=== PATIENT | male | born 1940 | race Caucasian/White ===

== ENCOUNTER 2018-11-25 08:09 | Outpatient (RCR) | payer MEDICARE, OTHER, SELFPAY | END 2018-12-07 23:59 | LOC: NS 08:09 | PROVIDERS: Family Provider Family Medicine; PCP Family Medicine; Visit Provider Nurse Practitioner Family | DX: E11.40 Type 2 diabetes mellitus with diabetic neuropathy, unspecified (principal); N18.3 Chronic kidney disease, stage 3 (moderate); Z71.3 Dietary counseling and surveillance | CPT/HCPCS: 97802 ==

== ENCOUNTER 2018-12-31 08:00 | Outpatient (RCR) | payer MEDICARE, OTHER, SELFPAY ==
[2015-03-18 01:19] VITALS: BMI 37.0
== END 2019-01-06 23:59 ==
LOC: DC 08:00
PROVIDERS: Family Provider Family Medicine; PCP Family Medicine; Visit Provider Nurse Practitioner Family
DX: E11.40 Type 2 diabetes mellitus with diabetic neuropathy, unspecified (principal); E66.9 Obesity, unspecified; Z68.39 Body mass index [BMI] 39.0-39.9, adult; Z71.3 Dietary counseling and surveillance; N18.3 Chronic kidney disease, stage 3 (moderate)
CPT/HCPCS: 97803; G0108

== ENCOUNTER 2019-02-04 14:00 | Outpatient (RCR) | payer MEDICARE, OTHER, SELFPAY ==
[2015-03-18 01:19] VITALS: BMI 37.0
== END 2019-02-06 23:59 ==
LOC: DC 14:00
PROVIDERS: Family Provider Family Medicine; PCP Family Medicine; Visit Provider Nurse Practitioner Family
DX: E11.40 Type 2 diabetes mellitus with diabetic neuropathy, unspecified (principal); E66.9 Obesity, unspecified; Z68.39 Body mass index [BMI] 39.0-39.9, adult; Z71.3 Dietary counseling and surveillance; N18.3 Chronic kidney disease, stage 3 (moderate)
CPT/HCPCS: 97803; G0108

== ENCOUNTER 2019-02-24 09:12 | Outpatient (RCR) | payer MEDICARE, OTHER, SELFPAY ==
[2015-03-18 01:19] VITALS: BMI 37.0
== END 2019-03-08 23:59 ==
LOC: DC 09:12
PROVIDERS: Visit Provider Nurse Practitioner Family
DX: E11.40 Type 2 diabetes mellitus with diabetic neuropathy, unspecified (principal); E66.9 Obesity, unspecified; Z68.39 Body mass index [BMI] 39.0-39.9, adult; Z71.3 Dietary counseling and surveillance; N18.3 Chronic kidney disease, stage 3 (moderate)
CPT/HCPCS: 97803

== ENCOUNTER 2019-03-31 11:00 | Outpatient (RCR) | payer MEDICARE, OTHER, SELFPAY ==
[2015-03-18 01:19] VITALS: BMI 37.0
== END 2019-04-08 23:59 ==
LOC: DC 11:00
PROVIDERS: Visit Provider Nurse Practitioner Family
DX: Z71.3 Dietary counseling and surveillance (principal); E11.40 Type 2 diabetes mellitus with diabetic neuropathy, unspecified; N18.3 Chronic kidney disease, stage 3 (moderate); E66.9 Obesity, unspecified; Z68.39 Body mass index [BMI] 39.0-39.9, adult
CPT/HCPCS: 97803; G0109

== ENCOUNTER 2019-05-14 09:19 | Outpatient (RCR) | payer MEDICARE, OTHER, SELFPAY ==
[2015-03-18 01:19] VITALS: BMI 37.0
== END 2019-06-08 23:59 ==
LOC: DC 09:19
PROVIDERS: Visit Provider Nurse Practitioner Family
DX: E11.40 Type 2 diabetes mellitus with diabetic neuropathy, unspecified (principal); E66.9 Obesity, unspecified; Z68.39 Body mass index [BMI] 39.0-39.9, adult; Z71.3 Dietary counseling and surveillance
CPT/HCPCS: G0109

== ENCOUNTER 2019-06-11 15:56 | Outpatient (RCR) | payer MEDICARE, OTHER, SELFPAY ==
[2015-03-18 01:19] VITALS: BMI 37.0
== END 2019-07-09 23:59 ==
LOC: DC 15:56
PROVIDERS: Visit Provider Nurse Practitioner Family
DX: E11.40 Type 2 diabetes mellitus with diabetic neuropathy, unspecified (principal); E66.9 Obesity, unspecified; Z68.39 Body mass index [BMI] 39.0-39.9, adult; Z71.3 Dietary counseling and surveillance
CPT/HCPCS: G0109

== ENCOUNTER 2019-08-13 13:00 | Outpatient (RCR) | payer MEDICARE, OTHER, SELFPAY ==
[2015-03-18 01:19] VITALS: BMI 37.0
== END 2019-08-13 23:59 | disposition home or self-care (01) ==
LOC: DC 13:00
PROVIDERS: Visit Provider Nurse Practitioner Family
DX: Z71.3 Dietary counseling and surveillance (principal); E11.40 Type 2 diabetes mellitus with diabetic neuropathy, unspecified; E66.9 Obesity, unspecified; Z68.39 Body mass index [BMI] 39.0-39.9, adult
CPT/HCPCS: G0109

== ENCOUNTER 2019-08-18 18:21 | Emergency (ER) | payer MEDICARE, OTHER, SELFPAY ==
[2019-08-18 18:22] VITALS: BP 157/70; PULSE 71; RESP 14; TEMP 36.9; O2SAT 97; BMI 34.8
--- NOTE | 2019-08-18 18:47 | RAD_ITS ---
STUDY: X-RAY - RIGHT SHOULDER REASON FOR EXAM: Male, 79 years old. Right shoulder pain after fall. TECHNIQUE: 2 view(s) of the shoulder. COMPARISON: None. 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 There is degenerative arthrosis of the acromioclavicular joint without inferior osseous spur formation. There is lateral downward sloping acromion. There is no acute fracture, dislocation or destructive osseous pathology. There is demineralization of the humerus and visualized osseous structures. The soft tissue structures are unremarkable. Normal visualized pulmonary apex. RAD/Shoulder min 2 Views IMPRESSION: Degenerative changes of the right shoulder without acute fracture or dislocation. Electronically Signed: Ap Mahajan DO at 19:02 EST Tel [phone], Service support ,
--- NOTE | 2019-08-18 18:50 | ED.VIS.GEN ---
History of Present Illness Chief Complaint: Fall Informant: Patient Onset: Today Context: Sudden Onset Timing: Continuous Current Severity: Moderate Maximum Severity: Moderate Narrative: The patient presents to the emergency department with right shoulder injury after a fall. The patient states that his just had a hip replaced. He had we done the rear deck so she can get up and down easily. He states that he forgot about it, stepped, and fell off the edge. He states he was only about 4 inches out. He landed on his right elbow and suffered a contusion to his right shoulder. He did not strike his head. He denies loss of consciousness. He is otherwise been in his normal state of health. Prior similar symptoms: No Recent Illness/Hospitalization: No Past Medical History - Allergies and Home Meds Allergies/Adverse Reactions: Allergies aspirin Allergy (Verified 08/18/19 18:25) Rash atorvastatin calcium [From Lipitor] Allergy (Verified 08/18/19 18:25) Other finasteride Allergy (Verified 08/18/19 18:25) Rash ibuprofen [From Motrin] Allergy (Verified 08/18/19 18:25) Swelling simvastatin [From Zocor] Allergy (Verified 08/18/19 18:25) Other sulfamethoxazole [From Bactrim] Allergy (Verified 08/18/19 18:25) Unknown trimethoprim [From Bactrim] Allergy (Verified 08/18/19 18:25) Unknown Primary Care Physician: Isai Pedersen MD [Primary Care Provider] - Prior records reviewed: Yes Surgical History: noncontributory Smoking Status: Never smoker Review of Systems General: Denies: Chills, Fever, Sweats Eyes: Denies: Visual changes - bilaterally, Diplopia ENT: Denies: Rhinorrhea, Sore throat Cardiovascular: Denies: Chest pain, Palpitations Respiratory: Denies: Dyspnea, Cough, Dyspnea on exertion Gastrointestinal: Denies: Abdominal pain, Nausea, Vomiting, Diarrhea, Melena, Hematochezia Genitourinary: Denies: Dysuria, Hematuria, Frequency Musculoskeletal: Denies: Back pain, Extremity Pain Skin: Denies: Rash, Wounds Neurological: Denies: Headache, Weakness, Numbness Physical Exam Vital Signs/Narrative: Vital Signs Temp Pulse Resp BP Pulse Ox 08/18/19 18:22 98.5 F 71 14 157/70 H 97 Inital Vital Signs reviewed: Yes General: Well nourished, Well developed, No Acute Distress Head: Normocephalic, Atraumatic Eyes: Perrl, EOMI ENT: Moist mucous membranes, No rhinorrhea Neck: Supple, Nontender Cardiovascular: Regular rate, Regular rhythm, No murmurs Respiratory: No distress, CTA bilaterally, Chest nontender Abdomen: Soft, Nontender, Nondistended, Normal bowel sounds Back: Nontender, Normal Inspection Extremities: No edema, Tenderness - Tenderness over the AC joint. Axillary nerve is preserved. 2+ radial ulnar pulses. Sensation preserved to light touch. Skin is intact without tenting. Skin: Normal color, No rash Neurological: Alert, Oriented x3, Cranial nerves II-XII grossly intact, Normal Strength, Normal Sensation Psychological: Normal affect, Normal Mood Diagnostic/Tx/Re-eval Clinical Impression(s) from Imaging Studies Shoulder X-Ray 08/18/19 18:47 IMPRESSION: Degenerative changes of the right shoulder without acute fracture or dislocation. Electronically Signed: Ap Mahajan DO at 19:02 EST Tel [phone], Service support , - Medical Decision Making The patient did have a superficial abrasion of his fingertips on his right hand and of his right baer. He had no bony tenderness. I did obtain plain films of the shoulder which are unremarkable for acute fracture. Patient is resting comfortably. My suspicion is that this is likely contusion. He does have significant arthritis. He will be placed in a sling for comfort but was counseled on range of motion exercises. He will be given a short course of analgesics and outpatient orthopedic follow-up. Impression 1. Right shoulder contusion status post fall ED Disposition - Plan for ED Patient: Disposition: Home or Assisted Living Instructions: Shoulder Contusion Prescriptions: Hydrocodone Bitart/Apap 5-325 [[place] 5MG-325MG] 1 tab PO Q6H PRN PRN 3 Days #10 tab PRN Reason: Pain Prescription Printed Referrals: Isai Pedersen MD [Primary Care Provider] -
[2019-08-18] MEDS: HYDROcodone Bitartrate/Apap 5/325 Tablet PO (18:55)
== END 2019-08-18 19:30 | disposition home or self-care (01) ==
PROVIDERS: Emergency Provider Emergency Medicine; Family Provider Family Medicine; PCP Family Medicine
DX: S40.011A Contusion of right shoulder, initial encounter (principal); S60.419A Abrasion of unspecified finger, initial encounter; S80.811A Abrasion, right lower leg, initial encounter; M19.011 Primary osteoarthritis, right shoulder; W17.89XA Other fall from one level to another, initial encounter; Y93.9 Activity, unspecified; Y92.9 Unspecified place or not applicable
CPT/HCPCS: 73030; 99283

== ENCOUNTER 2020-08-25 04:15 | Inpatient (IN) | payer MEDICARE, OTHER, SELFPAY ==
[2020-08-25] VITALS (8 sets, daily range): BP systolic 120–142; BP diastolic 57–76; PULSE 66–80; RESP 16–19; TEMP 36.1–37.2; O2SAT 94–95; BMI 34.4; BMI 33.9
--- NOTE | 2020-08-25 04:30 | ED.VIS.GEN ---
History of Present Illness Chief Complaint: GI Bleed Narrative: Patient is a 80-year-old male who presents with rectal bleeding. He initially noted this last night. He felt like he needed to have a bowel movement and had bright red blood per rectum. This has continued. He has noted some small clots. He is not on any anticoagulation. He complains of some minimal burning at the rectum but no abdominal pain. He was recently diagnosed with Covid 1 week ago. He states the symptoms have improved. He has not had a fever the last few days. No prior history of GI bleed. Past Medical History - Allergies and Home Meds Allergies/Adverse Reactions: Allergies aspirin Allergy (Verified 08/25/20 04:21) Rash atorvastatin calcium [From Lipitor] Allergy (Verified 08/25/20 04:21) Other finasteride Allergy (Verified 08/25/20 04:21) Rash ibuprofen [From Motrin] Allergy (Verified 08/25/20 04:21) Swelling simvastatin [From Zocor] Allergy (Verified 08/25/20 04:21) Other sulfamethoxazole [From Bactrim] Allergy (Verified 08/25/20 04:21) Unknown trimethoprim [From Bactrim] Allergy (Verified 08/25/20 04:21) Unknown Primary Care Physician: Isai Pedersen MD [Primary Care Provider] - Past Medical History: - - Diabetes, hypertension, hyperlipidemia Surgical History: noncontributory Smoking Status: Never smoker Review of Systems All systems negative except as indicated General: Denies: Fever Eyes: Denies: Visual changes - bilaterally Cardiovascular: Denies: Chest pain Respiratory: Denies: Dyspnea Gastrointestinal: Reports: Hematochezia. Denies: Abdominal pain, Nausea, Vomiting, Diarrhea, Melena Skin: Denies: Rash Neurological: Denies: Headache Physical Exam Vital Signs/Narrative: Vital Signs Temp Pulse Resp BP Pulse Ox 08/25/20 04:16 97.9 F 80 18 140/76 H 95 Inital Vital Signs reviewed: Yes General: Well nourished Head: Normocephalic Eyes: EOMI ENT: Moist mucous membranes Neck: Supple Cardiovascular: Regular rate, Regular rhythm Respiratory: No distress, CTA bilaterally Abdomen: Soft, Nontender, Nondistended Rectal: - - Gross maroon blood on digital rectal exam with small clots Skin: Normal color Neurological: Alert Psychological: Normal affect Diagnostic/Tx/Re-eval Laboratory Results 08/25/20 08/25/20 08/25/20 04:35 04:35 04:35 WBC 8.0 RBC 4.35 L Hgb 13.4 Hct 40.0 MCV 92.0 MCH 30.8 MCHC 33.5 RDW Std Deviation 49.1 H RDW Coeff of Joe 14.4 Plt Count 253 MPV 8.7 Immature Gran % (Auto) 0.200 Neut % (Auto) 43.7 L Lymph % (Auto) 44.3 H [place] % (Auto) 9.8 Eos % (Auto) 1.5 Baso % (Auto) 0.5 Absolute Neuts (auto) 3.5 Absolute Lymphs (auto) 3.56 Nucleated RBC % 0 PT 12.6 INR 1.0 Sodium 134 L Potassium 4.8 Chloride 105 Carbon Dioxide 20.0 L Anion Gap 9 BUN 29 H Creatinine 1.39 H Estim Creat Clear Calc 44.49 Est GFR (MDRD) Af Amer 63 Est GFR (MDRD) Non-Af 52 L BUN/Creatinine Ratio 20.9 H Glucose 101 Calcium 8.5 - Medical Decision Making Laboratory studies essentially unremarkable as above. Patient is hemodynamically stable. However given age and active bleeding I did feel hospital observation appropriate. Patient discussed with the hospitalist who agrees to admit. ED Disposition - Plan for ED Patient: Disposition: Acute Care Hospital [facility] Diagnosis: GI bleed Referrals: Isai Pedersen MD [Primary Care Provider] -
[2020-08-25 04:49] LABS: Absolute Lymphocyte Count 3.56 X10^3/uL (0.83-4.51); Absolute Neutrophil Count 3.5 X10^3/uL (2.0-7.7); Basophil# 0.04 X10^3/uL; Basophil% 0.5 % (0-1); Eosinophil# 0.12 X10^3/uL; Eosinophils% 1.5 % (0-5); Hemoglobin 13.4 g/dL (13.0-16.5); Lymphocyte # 3.56 X10^3/ul (4.0); Lymphocyte % 44.3 % (19-41); Mean Corp Hgb Conc 33.5 g/dL (32-36); Mean Corpuscular Hgb 30.8 pg (27.0-32.0); Mean Platelet Vol. 8.7 fl (6.2-12.0); Monocyte# 0.79 X10^3/uL; Monocyte% 9.8 % (0-10); NRBC Flagged by Analyzer 0 % (0-5); Neutrophil % 43.7 % (47-70); Platelet Count 253 K/mm3 (150-450); RBC Distribution Width CV 14.4 % (11.6-14.6); RBC Distribution Width SD 49.1 fl (35.1-43.9); Red Blood Count 4.35 M/mm3 (4.6-6.2)
[2020-08-25 05:00] LABS: Prothrombin Time (Protime)PT. 12.6 SECONDS (11.7-14.9)
[2020-08-25 05:04] LABS: Anion Gap 9 (5-15); BUN 29 mg/dL (7-18); BUN/Creat Ratio 20.9 RATIO (10-20); Calcium,Total 8.5 mg/dL (8.5-10.1); Chloride 105 mmol/L (98-107); Creatinine, Serum 1.39 mg/dL (0.70-1.30); EST Glomerular Filtration Rate 52 mL/min (>60); Est Glom Filt Rate - Afr Amer 63 mL/min (>60); Estimated Creatinine Clearance 44.49 ml/min; Glucose 101 mg/dL (74-106); Potassium 4.8 mmol/L (3.5-5.1); Sodium Level 134 mmol/L (136-145)
--- NOTE | 2020-08-25 05:27 | HP.PCM_ITS ---
Problem List (1) BRBPR (bright red blood per rectum) Status: Acute (2) GI bleed Status: Acute History of Present Illness Date of Admission: 08/25/20 Chief Complaint: Bright red blood per rectum. The patient is a 80 year old M with a significant history of hypertension; BPH; gout; hyperlipidemia and hypertension who presented emergency department with bright red blood per rectum that started few hours before presentation. Of note patient had an urge to defecate. However he realized that he was only passing out bright red blood per rectum. Thereafter he continued to have multiple episodes of bright red blood per rectum and clots. He denies any abdominal pain; nausea or vomiting. He denied any hematemesis. Had a colonoscopy many years ago. Reportedly the colonoscopy was nondiagnostic so a barium study was done. He does not remember the results of the colonoscopy. He reported he was supposed to have had a colonoscopy in August 2020 but it has been moved to September 2020. Patient is weak and fatigued. He has lightheadedness. Patient denies any use of aspirin or blood thinners. Reportedly he takes only Tylenol for pain. Of note patient tested positive for coronavirus on 08/18/2020. Reportedly he had Covid-like symptoms symptoms about 2 days before his test was done. He reported that his lightheadedness; weakness and fatigue started when he had a COVID-19 virus. He was never hospitalized for the COVID-19 virus. When he had the covid-19 virus he felt feverish. He denies any shortness of breath with covid-19. He had a loss of taste with the virus. Reportedly he lost his sense of smell many years ago. His sense of taste is coming back. Generally he feels improved from his COVID-19 symptoms. Emergent department doctor reports maroon stools on rectal examination. Past Medical History Medical History: Medical History (Last Updated 08/25/20 @ 06:[address] Matt Martinez MD) Hypertension I10 Allergies aspirin Allergy (Verified 08/25/20 04:21) Rash atorvastatin calcium [From Lipitor] Allergy (Verified 08/25/20 04:21) Other finasteride Allergy (Verified 08/25/20 04:21) Rash ibuprofen [From Motrin] Allergy (Verified 08/25/20 04:21) Swelling simvastatin [From Zocor] Allergy (Verified 08/25/20 04:21) Other sulfamethoxazole [From Bactrim] Allergy (Verified 08/25/20 04:21) Unknown trimethoprim [From Bactrim] Allergy (Verified 08/25/20 04:21) Unknown Home Medications: Ambulatory Orders Medication Instructions Recorded Allopurinol [Zyloprim] 200 mg PO DAILYCM 03/18/15 Ezetimibe [Zetia] 10 mg PO DAILY 03/18/15 Lisinopril [Zestril] 10 mg PO DAILY 03/18/15 Multivit-Min/FA/Lycopene/Lut 1 each PO DAILY 03/18/15 [Centrum Silver Tablet] Pyridoxine HCl [Vitamin B-6] 100 mg PO DAILY 03/18/15 Tamsulosin HCl [Flomax] 0.8 mg PO QHS 03/18/15 metFORMIN (XR) [Glucophage Xr] 250 mg PO DAILY 08/18/19 Cholecalciferol (VIT D3) [Vitamin 1,000 unit PO DAILY 08/25/20 D] Surgical History: - - Right shoulder replacement. Right nephrectomy secondary to cysts on kidney. Smoking Status: Never smoker - *Family History Maternal History Items: - - Denies maternal medical history. Her mother of age 100. He attributes maternal to old age Paternal History Items: Cancer - His father had prostate cancer Review of Systems Constitutional: Reports: Weakness, Fatigue. Denies: Chills, Fever, Weight Change HEENT: Denies: Head Aches, Sinus Congestion, Sinus Drainage Cardiovascular: Reports: Light Headedness. Denies: Chest Pain, Palpitations Respiratory: Denies: Cough, Shortness of breath at rest, Sputum production Gastrointestinal: Reports: Hematochezia. Denies: Abdominal Pain, Nausea, Vomiting Genitourinary: Denies: Dysuria Musculoskeletal: Denies: Joint Pain, Joint Tenderness Skin: Denies: Rash, Wounds Neurological: Denies: Numbness, Tingling, Focal weakness Psychiatric: Denies: Anxiety, Depression, Homicidal Ideations, Suicidal Ideations Hematologic/ Lymphatic: Denies: Easy Bruising, Easy Bleeding VTE Information - Inpt Only VTE Present on Admission: No VTE Mechan Device Prophylaxis: SCD's VTE Pharm Prophylaxis ordered?: No Patient Problems: Active and Suspected Problems (Last Updated 08/25/20 @ 06:[address] Matt Martinez MD) GI bleed (Acute) BRBPR (bright red blood per rectum) (Acute) - Physical Exam Vitals/I&O's: Vital Signs Temp Pulse Resp BP Pulse Ox 97.9 F 80 18 140/76 H 95 08/25/20 04:16 08/25/20 04:16 08/25/20 04:16 08/25/20 04:16 08/25/20 04:16 Oxygen Delivery Method Room Air Weight: 109 kg Body Mass Index (BMI) 34.4 General: Alert, Oriented x3, Cooperative HEENT: Atraumatic, PERRLA, EOMI, Normocephalic Neck: Supple, No JVD, Negative Carotid Bruits Lungs: Clear to auscultation, Normal air movement Cardiovascular: Regular rate, Normal S1, Normal S2, No murmurs Abdomen: Bowel Sounds Present, Soft, Non Tender Extremities: No edema, Capillary Refill Less than 3 Seconds Skin: No rashes, No breakdown Musculoskeletal: No Tenderness to Palpation of Joints or Extremities Neurological: Cranial nerves II-XII grossly intact Psych/Mental Status: Normal Affect, Appropriate Laboratory Results 08/25/20 04:35: WBC 8.0, RBC 4.35 L, Hgb 13.4, Hct 40.0, MCV 92.0, MCH 30.8, MCHC 33.5, RDW Std Deviation 49.1 H, RDW Coeff of Joe 14.4, Plt Count 253, MPV 8.7, Immature Gran % (Auto) 0.200, Neut % (Auto) 43.7 L, Lymph % (Auto) 44.3 H, [place] % (Auto) 9.8, Eos % (Auto) 1.5, Baso % (Auto) 0.5, Absolute Neuts (auto) 3.5, Absolute Lymphs (auto) 3.56, Nucleated RBC % 0 08/25/20 04:35: PT 12.6, INR 1.0 08/25/20 04:35: Sodium 134 L, Potassium 4.8, Chloride 105, Carbon Dioxide 20.0 L , Anion Gap 9, BUN 29 H, Creatinine 1.39 H, Estim Creat Clear Calc 44.49, Est GFR (MDRD) Af Amer 63, Est GFR (MDRD) Non-Af 52 L, BUN/Creatinine Ratio 20.9 H, Glucose 101, Calcium 8.5 08/25/20 04:35: Blood Type Pending, Antibody Screen Pending Assessment/Plan All Active Problems (Last Updated 08/25/20 @ 06:[address] Matt Martinez MD) GI bleed (Acute) BRBPR (bright red blood per rectum) (Acute) The patient is a 80 year old M with a significant history of hypertension; BPH; gout; hyperlipidemia and hypertension who presented emergency department with bright red blood per rectum that started few hours and with recent infection with COVID-19 virus. Bright red blood per rectum His hemoglobin on presentation was 13.4. His hemoglobin from community records on 05/04/2020 was 13. His BUN on presentation was 29 and his creatinine presentation was 1.39. Review of community records showed that his BUN on 07/12/2020 was 30 and creatinine on the same day was 1.43. And on 05/04/2020 his BUN was 26; his creatinine was 1.74. With his age; and stable BUN and stable blood pressure this is likely acute lower GI bleed from diverticular bleed. Emergent department doctor reports no hemorrhoids on rectal examination. However cannot rule out malignancy. We will trend H&H. Supportive treatment with IV fluids. If H&H is stable consider discharge and follow-up for outpatient colonoscopy as previously planned. However if H&H drops significantly or patient is unsteady consider general surgery consult. We will keep patient n.p.o. for now. COVID-19 virus infection. Follow started symptoms after this time is about 9 days. Will admit patient to Covid unit. Diabetes mellitus Blood glucose is normal on presentation Hold Metformin While n.p.o. Accu-Chek every 6 hours. Hypertension Pressure is stable in regard to his age. Lisinopril on hold secondary to n.p.o. status. Also of note patient is bleeding. Trend blood pressures. Hyperlipidemia Home Zetia on hold secondary to n.p.o. status. BPH Flomax on hold secondary to n.p.o. status. CKD stage III Creatinine on presentation community records as above. CKD likely secondary to right nephrectomy secondary to kidney cyst. Diabetic nephropathy likely contributing to CKD. DVT prophylaxis No chemical thromboprophylaxis secondary GI bleed. SCD ordered. Inpatient E&M: 47339 Init Hosp L3
--- NOTE | 2020-08-25 06:15 | PCS.PANDOC ---
PANDEMIC DOCUMENTATION INITIATED: Date: 08/25/20 Time: 604
[2020-08-25] MEDS: 0.9% Normal Saline 1,000 ML 100 ML IV (06:46)
[2020-08-25] MEDS: 0.9% Saline Lock 10 ML Syringe IV (06:46)
[2020-08-25 10:14] LABS: Hematocrit 39.7 % (40-54); Hemoglobin 13.2 g/dL (13.0-16.5)
--- NOTE | 2020-08-25 11:00 | PN_ITS ---
Patient Problems: Active and Suspected Problems (Last Updated 08/25/20 @ 06:[address] Matt Martinez MD) GI bleed (Acute) BRBPR (bright red blood per rectum) (Acute) Reason for Visit: Lower GI bleed COVID-19 infection Subjective: Patient is a 80-year-old gentleman diagnosed with COVID-19 a week prior to his admission managed at home who presented to the emergency department with bright red per rectum admitted to the Covid unit for subsequent management Objective: GENERAL: cooperative HEENT: Atraumatic; EYES; Anicteric, Normal Conjunctiva NECK; supple, normal thyroid, RESPIRATORY: Diminished to auscultation CARDIOVASCULAR: Regular S1 S2, GI: soft, normoactive bowel sounds, : No Renal angle tenderness; EXTREMITIES: No edema, no clubbing, MUSCULOSKELETAL: no muscle waisting NEURO: Awake; no lateralizing signs. SKIN: No Rash PSYCH; Flat affect Vitals/I&O's: Vital Signs Temp Pulse Resp BP Pulse Ox 97.4 F L 66 16 120/57 L 95 08/25/20 06:29 08/25/20 06:29 08/25/20 06:29 08/25/20 06:29 08/25/20 08:05 Oxygen Delivery Method Room Air Weight: 107.275 kg Body Mass Index (BMI) 33.9 Laboratory Results 08/25/20 04:35: WBC 8.0, RBC 4.35 L, Hgb 13.4, Hct 40.0, MCV 92.0, MCH 30.8, MCHC 33.5, RDW Std Deviation 49.1 H, RDW Coeff of Joe 14.4, Plt Count 253, MPV 8.7, Immature Gran % (Auto) 0.200, Neut % (Auto) 43.7 L, Lymph % (Auto) 44.3 H, [place] % (Auto) 9.8, Eos % (Auto) 1.5, Baso % (Auto) 0.5, Absolute Neuts (auto) 3.5, Absolute Lymphs (auto) 3.56, Nucleated RBC % 0 08/25/20 04:35: PT 12.6, INR 1.0 08/25/20 04:35: Sodium 134 L, Potassium 4.8, Chloride 105, Carbon Dioxide 20.0 L , Anion Gap 9, BUN 29 H, Creatinine 1.39 H, Estim Creat Clear Calc 44.49, Est GFR (MDRD) Af Amer 63, Est GFR (MDRD) Non-Af 52 L, BUN/Creatinine Ratio 20.9 H, Glucose 101, Calcium 8.5 08/25/20 04:35: Blood Type O NEGATIVE, Antibody Screen NEGATIVE 08/25/20 10:05: Hgb 13.2, Hct 39.7 L Current Medications Sodium Chloride () 1,000 mls @ 100 mls/hr IV .Q10H LOIS Stop: 08/25/20 16:14 Last Admin: 08/25/20 06:46 Dose: 100 mls/hr Documented by: Sodium Chloride () 250 mls @ 15 mls/hr IV .[id number] PRN PRN Reason: Saline Flush Ondansetron HCl (Ondansetron 4 Mg/2 Ml Vial) 4 mg IV Q8H PRN PRN PRN Reason: NAUSEA/VOMITING Sodium Chloride (0.9% Saline Lock 10 Ml Syringe) 10 - 40 ml IV UD PRN PRN Reason: SALINE FLUSH Last Admin: 08/25/20 06:46 Dose: 10 ml Documented by: STROKE Vital Signs/Narrative: Vital Signs Pulse Ox 08/25/20 08:05 95 Medical Necessity - Tobacco Use Smoking Status: Never smoker Assessment/Plan All Active Problems (Last Updated 08/25/20 @ 06:[address] Matt Martinez MD) GI bleed (Acute) BRBPR (bright red blood per rectum) (Acute) Patient is a 80-year-old gentleman diagnosed with COVID-19 a week prior to his admission managed at home who presented to the emergency department with bright red per rectum admitted to the Covid unit for subsequent management 1. Acute lower GI bleed ?suspected to be secondary to diverticular bleed admitted to regular nursing floor H&H ordered consult placed to general surgery patient seen in consultation by Dr. Thompson who recommended conservative management at this point 2. Recent COVID-19 infection -Greatly asymptomatic 3. Diabetes mellitus type II -patient's oral hypoglycemics held. -Placed on long acting insulin, Accu-Cheks a.c. and at bedtime and covered with sliding scale insulin 4. Chronic Kidney disease stage III ?Kidney function at baseline 5. Dyslipidemia -Patient is on statin therapy, continued at home dose 6. Hypertension - Blood pressure controlled, home medications continued with dose adjustment as needed 7. Morbid obesity with BMI of 33.9 ?Weight loss advised 8. BPH -Is on Flomax continued 9. DVT prophylaxis SCDs Advance planning; did discuss with the patient and family regarding advanced directives as well as CODE STATUS. Did explain the various scenarios involved ( FULL CODE, DNR CCA, DNR CCA with no intubation, and DNR CC and what each meant) patient elected full code with CPR and intubation if warranted, order was placed. Time spent on discussion 18 minutes. Inpatient E&M: 77254 [facility] Hosp L3 Procedures: 72807 Advncd Care Plan 30 Min
--- NOTE | 2020-08-25 13:53 | CASEMGMT ---
RN CM Assessment Note Introduced role of CM to patient via phone to room. Demographics, PCP verified. Pt is awake, alert and able to participate in assessment. Pt states he lives independently with his who has covid and was in ER, set up with oxygen. patient does not have concerns re: going home. States they are able to have daughters bring groceries, etc. COVID TESTIN08/18/20 @ [facility] Presentation: rectal bleeding Diagnosis: GI Bleed PCP: Dr. Isai Pedersen Specialists: Dr. Thompson Insurance: [facility]erred [facility]acy: [facility] Prescription Benefit: yes LNOK: , Breanne Faust Living Arrangements: Lives independently @ home Tranportation: patient drives and drives DME: states he does not use DME at home. Has walker and cane available. No home oxygen. HHC: none SNF: none Patient DC Goals: Home on discharge. DC Plan: anticipate home on discharge CM available for discharge planning coordination. Contact CM for any concerns/needs that may arise. Cindy AVILES RN ACM
--- NOTE | 2020-08-25 15:35 | NT.THERAPY_ITS ---
Nutrition Therapy Report - History Current diet / nutrition support order:: cardiac - Anthropometric Measurements Height:: 5 ft 10 in Weight:: 107.275 kg Body Mass Index (BMI):: 33.9 - Relevant Labs Relevant Labs:: RBC 4.35 M/mm3 (4.6-6.2) L 08/25/20 04:35 Hct 39.7 % (40-54) L 08/25/20 10:05 RDW Std Deviation 49.1 fl (35.1-43.9) H 08/25/20 04:35 Neut % (Auto) 43.7 % (47-70) L 08/25/20 04:35 Lymph % (Auto) 44.3 % (19-41) H 08/25/20 04:35 Sodium 134 mmol/L (136-145) L 08/25/20 04:35 Carbon Dioxide 20.0 mmol/L (21.0-32.0) L 08/25/20 04:35 BUN 29 mg/dL (7-18) H 08/25/20 04:35 Creatinine 1.39 mg/dL (0.70-1.30) H 08/25/20 04:35 Est GFR (MDRD) Non-Af 52 mL/min (>60) L 08/25/20 04:35 BUN/Creatinine Ratio 20.9 RATIO (10-20) H 08/25/20 04:35 - Assessment Food / Nutrition-Related History:: Currently in isolation d/t COVID-19. Spoke w/ pt via room phone. 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 No special diet followed normally at home. States appetite is improving today, consumed 100% of lunch. Believes UBW 245# and CBW 236.5#-8.5#/3.4% unintentional wt loss x 1 week. 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 Evidence of Malnutrition Exists:: Yes Severe PCM:: Acute Illness - Nutrition Intervention Nutrition Prescription:: 7220-4921 calories, 70-80 g protein - Food / Nutrient Delivery Interventions Summary of nutrition intervention:: Pt states appetite has significantly improved over last 24-48 hours. Tastes are no longer altered. Declines further nutrition interventions/education at this time. Of note, pt attended [facility] in 2019. Nutrition support ordered as / adjusted to:: continue cardiac diet as tolerated Nutrition education provided?: No - MNT Monitoring Further MNT monitoring and evaluation required?: Yes MNT Follow-up in:: 5-7 days
--- NOTE | 2020-08-25 16:30 | PCM.CONS.GEN ---
Problem List (1) BRBPR (bright red blood per rectum) Status: Acute Reason for Consult Date of Consultation: 08/25/20 History of Present Illness: The patient is a 80 year old M with a significant history of hypertension; BPH; gout; hyperlipidemia and hypertension who presented emergency department with bright red blood per rectum that started few hours before presentation. Of note patient had an urge to defecate. However he realized that he was only passing out bright red blood per rectum. Thereafter he continued to have multiple episodes of bright red blood per rectum and clots. He denies any abdominal pain; nausea or vomiting. He denied any hematemesis. Had a colonoscopy many years ago. Reportedly the colonoscopy was nondiagnostic so a barium study was done. He does not remember the results of the colonoscopy. He reported he was supposed to have had a colonoscopy in August 2020 but it has been moved to September 2020. Patient is weak and fatigued. He has lightheadedness. Patient denies any use of aspirin or blood thinners. Reportedly he takes only Tylenol for pain. Of note patient tested positive for coronavirus on 08/18/2020. Reportedly he had Covid-like symptoms symptoms about 2 days before his test was done. He reported that his lightheadedness; weakness and fatigue started when he had a COVID-19 virus. He was never hospitalized for the COVID-19 virus. When he had the covid-19 virus he felt feverish. He denies any shortness of breath with covid-19. He had a loss of taste with the virus. Reportedly he lost his sense of smell many years ago. His sense of taste is coming back. Generally he feels improved from his COVID-19 symptoms. Since being on the floor the patient has had no further bloody bowel movements. I have performed a colonoscopy on him on 02/05/2013. He had some benign polyps. Past Medical History Medical History: Medical History (Last Reviewed 08/25/20 @ 16:[address] Zaheer Thompson MD) Hypertension I10 Allergies aspirin Allergy (Verified 08/25/20 04:21) Rash atorvastatin calcium [From Lipitor] Allergy (Verified 08/25/20 04:21) Other finasteride Allergy (Verified 08/25/20 04:21) Rash ibuprofen [From Motrin] Allergy (Verified 08/25/20 04:21) Swelling simvastatin [From Zocor] Allergy (Verified 08/25/20 04:21) Other sulfamethoxazole [From Bactrim] Allergy (Verified 08/25/20 04:21) Unknown trimethoprim [From Bactrim] Allergy (Verified 08/25/20 04:21) Unknown Home Medications: Ambulatory Orders Medication Instructions Recorded Allopurinol [Zyloprim] 200 mg PO DAILYCM 03/18/15 Ezetimibe [Zetia] 10 mg PO DAILY 03/18/15 Lisinopril [Zestril] 10 mg PO DAILY 03/18/15 Multivit-Min/FA/Lycopene/Lut 1 each PO DAILY 03/18/15 [Centrum Silver Tablet] Pyridoxine HCl [Vitamin B-6] 100 mg PO DAILY 03/18/15 Tamsulosin HCl [Flomax] 0.8 mg PO QHS 03/18/15 metFORMIN (XR) [Glucophage Xr] 250 mg PO DAILY 08/18/19 Cholecalciferol (VIT D3) [Vitamin 1,000 unit PO DAILY 08/25/20 D] Surgical History: - - Right shoulder replacement. Right nephrectomy secondary to cysts on kidney. Smoking Status: Never smoker - *Family History Maternal History Items: - - Denies maternal medical history. Her mother of age 100. He attributes maternal to old age Paternal History Items: Cancer - His father had prostate cancer Review of Systems Constitutional: Denies: Chills, Fever, Weight Change Cardiovascular: Denies: Chest Pain, Chest Pressure, Chest Tightness, Palpitations Respiratory: Denies: Cough, Hemoptysis, Shortness of breath at rest, Shortness of breath upon exertion, Wheezing Gastrointestinal: Denies: Abdominal Pain, Constipation, Diarrhea, Hematemesis, Nausea, Melena, Vomiting Patient Problems: Active and Suspected Problems (Last Reviewed 08/25/20 @ 16:[address] Zaheer Thompson MD) GI bleed (Acute) BRBPR (bright red blood per rectum) (Acute) - Physical Exam Vitals/I&O's: Vital Signs Temp Pulse Resp BP Pulse Ox 98.4 F 71 18 131/64 H 94 08/25/20 13:00 08/25/20 13:00 08/25/20 13:00 08/25/20 13:00 08/25/20 13:00 Oxygen Delivery Method Room Air Weight: 236 lb 8.014 oz Body Mass Index (BMI) 33.9 General: Alert, Oriented x3 Cardiovascular: Regular rate, Regular Rhythm, No murmurs Abdomen: Bowel Sounds Present, Soft, Non Tender, Non-Distended Laboratory Results 08/25/20 04:35: WBC 8.0, RBC 4.35 L, Hgb 13.4, Hct 40.0, MCV 92.0, MCH 30.8, MCHC 33.5, RDW Std Deviation 49.1 H, RDW Coeff of Joe 14.4, Plt Count 253, MPV 8.7, Immature Gran % (Auto) 0.200, Neut % (Auto) 43.7 L, Lymph % (Auto) 44.3 H, [place] % (Auto) 9.8, Eos % (Auto) 1.5, Baso % (Auto) 0.5, Absolute Neuts (auto) 3.5, Absolute Lymphs (auto) 3.56, Nucleated RBC % 0 08/25/20 04:35: PT 12.6, INR 1.0 08/25/20 04:35: Sodium 134 L, Potassium 4.8, Chloride 105, Carbon Dioxide 20.0 L, Anion Gap 9, BUN 29 H, Creatinine 1.39 H, Estim Creat Clear Calc 44.49, Est GFR (MDRD) Af Amer 63, Est GFR (MDRD) Non-Af 52 L, BUN/Creatinine Ratio 20.9 H, Glucose 101, Calcium 8.5 08/25/20 04:35: Blood Type O NEGATIVE, Antibody Screen NEGATIVE 08/25/20 10:05: Hgb 13.2, Hct 39.7 L Current Medications Allopurinol (Allopurinol 100 Mg Tablet) 200 mg PO DAILY LOIS Ezetimibe (Ezetimibe 10 Mg Tablet) 10 mg PO DAILY LOIS Sodium Chloride () 250 mls @ 15 mls/hr IV .[id number] PRN PRN Reason: Saline Flush Lisinopril (Lisinopril 10 Mg Tablet) 10 mg PO DAILY LOIS Ondansetron HCl (Ondansetron 4 Mg/2 Ml Vial) 4 mg IV Q8H PRN PRN PRN Reason: NAUSEA/VOMITING Sodium Chloride (0.9% Saline Lock 10 Ml Syringe) 10 - 40 ml IV UD PRN PRN Reason: SALINE FLUSH Last Admin: 08/25/20 06:46 Dose: 10 ml Documented by: Tamsulosin HCl (Tamsulosin Hcl 0.4 Mg Capsule) 0.8 mg PO DAILY LOIS Assessment/Plan All Active Problems (Last Reviewed 08/25/20 @ 16:[address] Zaheer Thompson MD) GI bleed (Acute) BRBPR (bright red blood per rectum) (Acute) At the present time I have no endoscopy planned for him. His hemoglobin is stable at the present time and he has had no further rectal bleeding. Office Visits / Consults: [id number] IP Consult L3
[2020-08-25 17:04] LABS: Hematocrit 38.9 % (40-54); Hemoglobin 13.1 g/dL (13.0-16.5)
[2020-08-25 21:36] LABS: Bedside Glucose 134 mg/dL (70-110)
[2020-08-25 22:26] LABS: Hematocrit 38.2 % (40-54); Hemoglobin 12.8 g/dL (13.0-16.5)
[2020-08-26 03:00] VITALS: BP 141/68; PULSE 59; PULSE 72; RESP 16; TEMP 36.8; O2SAT 95
[2020-08-26 04:26] LABS: Hematocrit 41.5 % (40-54); Hemoglobin 13.4 g/dL (13.0-16.5); Mean Corp Hgb Conc 32.3 g/dL (32-36); Mean Corpuscular Hgb 31.1 pg (27.0-32.0); Mean Corpuscular Volume 96.3 fL (80-94); Mean Platelet Vol. 8.7 fl (6.2-12.0); Platelet Count 256 K/mm3 (150-450); RBC Distribution Width CV 14.5 % (11.6-14.6); RBC Distribution Width SD 51.7 fl (35.1-43.9); Red Blood Count 4.31 M/mm3 (4.6-6.2); White Blood Count 8.9 K/mm3 (4.4-11.0)
[2020-08-26 05:06] LABS: Anion Gap 11 (5-15); BUN 27 mg/dL (7-18); BUN/Creat Ratio 21.8 RATIO (10-20); Calcium,Total 8.1 mg/dL (8.5-10.1); Chloride 111 mmol/L (98-107); Creatinine, Serum 1.24 mg/dL (0.70-1.30); EST Glomerular Filtration Rate 60 mL/min (>60); Est Glom Filt Rate - Afr Amer 72 mL/min (>60); Estimated Creatinine Clearance 49.88 ml/min; Glucose 91 mg/dL (74-106); Magnesium 2.6 mg/dL (1.6-2.6); Potassium 5.3 mmol/L (3.5-5.1); Sodium Level 136 mmol/L (136-145)
[2020-08-26 07:06] VITALS: O2SAT 98
--- NOTE | 2020-08-26 08:13 | PCM.PN.HOSP ---
Patient Problems: Active and Suspected Problems (Last Reviewed 08/25/20 @ 16:[address] Zaheer Thompson MD) GI bleed (Acute) BRBPR (bright red blood per rectum) (Acute) Objective: GENERAL: cooperative HEENT: Atraumatic; EYES; Anicteric, Normal Conjunctiva NECK; supple, normal thyroid, RESPIRATORY: Diminished to auscultation CARDIOVASCULAR: Regular S1 S2, GI: soft, normoactive bowel sounds, : No Renal angle tenderness; EXTREMITIES: No edema, no clubbing, MUSCULOSKELETAL: no muscle waisting NEURO: Awake; no lateralizing signs. SKIN: No Rash PSYCH; Flat affect Vitals/I&O's: Vital Signs Temp Pulse Resp BP Pulse Ox 98.2 F 72 16 141/68 H 98 08/26/20 03:00 08/26/20 03:00 08/26/20 03:00 08/26/20 03:00 08/26/20 07:06 Oxygen Delivery Method Room Air Weight: 107.275 kg Body Mass Index (BMI) 33.9 Intake and Output for Last 24 Hours 08/24/20 08/25/20 08/26/20 23:59 23:59 23:59 Intake Total 1550 / 1700 150 / 150 Output Total 850 / 1100 550 / 550 Balance 700 / 600 -400 / -400 Laboratory Results 08/25/20 10:05: Hgb 13.2, Hct 39.7 L 08/25/20 16:32: Hgb 13.1, Hct 38.9 L 08/25/20 17:29: POC Glucose 134 H 08/25/20 22:05: Hgb 12.8 L, Hct 38.2 L 08/26/20 04:15: WBC 8.9, RBC 4.31 L, Hgb 13.4, Hct 41.5, MCV 96.3 H, MCH 31.1, MCHC 32.3, RDW Std Deviation 51.7 H, RDW Coeff of Joe 14.5, Plt Count 256, MPV 8.7 08/26/20 04:15: Sodium 136, Potassium 5.3 H, Chloride 111 H, Carbon Dioxide 14.0 L, Anion Gap 11, BUN 27 H, Creatinine 1.24, Estim Creat Clear Calc 49.88, Est GFR (MDRD) Af Amer 72, Est GFR (MDRD) Non-Af 60, BUN/Creatinine Ratio 21.8 H, Glucose 91, Calcium 8.1 L, Magnesium 2.6 Current Medications Allopurinol (Allopurinol 100 Mg Tablet) 200 mg PO DAILY LOIS Ezetimibe (Ezetimibe 10 Mg Tablet) 10 mg PO DAILY LO[facility] Sodium Chloride () 250 mls @ 15 mls/hr IV .[id number] PRN PRN Reason: Saline Flush Ondansetron HCl (Ondansetron 4 Mg/2 Ml Vial) 4 mg IV Q8H PRN PRN PRN Reason: NAUSEA/VOMITING Sodium Chloride (0.9% Saline Lock 10 Ml Syringe) 10 - 40 ml IV UD PRN PRN Reason: SALINE FLUSH Last Admin: 08/25/20 06:46 Dose: 10 ml Documented by: Tamsulosin HCl (Tamsulosin Hcl 0.4 Mg Capsule) 0.8 mg PO DAILY [facility] STROKE Vital Signs/Narrative: Vital Signs Pulse Ox 08/26/20 07:06 98 Medical Necessity - Tobacco Use Smoking Status: Never smoker Assessment/Plan All Active Problems (Last Reviewed 08/25/20 @ 16:[address] Zaheer Thompson MD) GI bleed (Acute) BRBPR (bright red blood per rectum) (Acute) Patient is a 80-year-old gentleman diagnosed with COVID-19 a week prior to his admission managed at home who presented to the emergency department with bright red per rectum admitted to the Covid unit for subsequent management 1. Acute lower GI bleed 2. Recent COVID-19 infection 3. BPH 4. Gout 5. Dyslipidemia -Patient is on statin therapy, continued at home dose 6. Hypertension - Blood pressure controlled, home medications continued with dose adjustment as needed 7. Morbid obesity with BMI of 33.9 ?Weight loss advised 8. DVT prophylaxis SCDs
[2020-08-26 08:23] VITALS: BP 130/81; PULSE 73; RESP 16; TEMP 36.6; O2SAT 94
[2020-08-26 08:25] VITALS: PULSE 70
[2020-08-26] MEDS: Allopurinol 100 MG Tablet 200 MG PO (08:27)
[2020-08-26] MEDS: Ezetimibe 10 MG Tablet PO (08:28)
[2020-08-26] MEDS: Tamsulosin HCl 0.4 MG Capsule 0.8 MG PO (08:28)
--- NOTE | 2020-08-26 09:05 | PN.SURG_ITS ---
Patient Problems: Active and Suspected Problems (Last Reviewed 08/25/20 @ 16:[address] Zaheer Thompson MD) GI bleed (Acute) BRBPR (bright red blood per rectum) (Acute) Subjective: Patient has had no further bloody bowel movements. - Physical Exam Vitals/I&O's: Vital Signs Temp Pulse Resp BP Pulse Ox 97.9 F 70 16 130/81 H 94 08/26/20 08:23 08/26/20 08:25 08/26/20 08:23 08/26/20 08:23 08/26/20 08:23 Oxygen Delivery Method Room Air Weight: 236 lb 8.014 oz Body Mass Index (BMI) 33.9 Intake and Output for Last 24 Hours 08/24/20 08/25/20 08/26/20 23:59 23:59 23:59 Intake Total 1550 / 1700 150 / 150 Output Total 850 / 1100 550 / 550 Balance 700 / 600 -400 / -400 Laboratory Results 08/25/20 10:05: Hgb 13.2, Hct 39.7 L 08/25/20 16:32: Hgb 13.1, Hct 38.9 L 08/25/20 17:29: POC Glucose 134 H 08/25/20 22:05: Hgb 12.8 L, Hct 38.2 L 08/26/20 04:15: WBC 8.9, RBC 4.31 L, Hgb 13.4, Hct 41.5, MCV 96.3 H, MCH 31.1, MCHC 32.3, RDW Std Deviation 51.7 H, RDW Coeff of Joe 14.5, Plt Count 256, MPV 8.7 08/26/20 04:15: Sodium 136, Potassium 5.3 H, Chloride 111 H, Carbon Dioxide 14.0 L, Anion Gap 11, BUN 27 H, Creatinine 1.24, Estim Creat Clear Calc 49.88, Est GFR (MDRD) Af Amer 72, Est GFR (MDRD) Non-Af 60, BUN/Creatinine Ratio 21.8 H, Glucose 91, Calcium 8.1 L, Magnesium 2.6 Current Medications Allopurinol (Allopurinol 100 Mg Tablet) 200 mg PO DAILY LOIS Last Admin: 08/26/20 08:27 Dose: 200 mg Documented by: Ezetimibe (Ezetimibe 10 Mg Tablet) 10 mg PO DAILY [facility] Last Admin: 08/26/20 08:28 Dose: 10 mg Documented by: Sodium Chloride () 250 mls @ 15 mls/hr IV .[id number] PRN PRN Reason: Saline Flush Ondansetron HCl (Ondansetron 4 Mg/2 Ml Vial) 4 mg IV Q8H PRN PRN PRN Reason: NAUSEA/VOMITING Sodium Chloride (0.9% Saline Lock 10 Ml Syringe) 10 - 40 ml IV UD PRN PRN Reason: SALINE FLUSH Last Admin: 08/25/20 06:46 Dose: 10 ml Documented by: Tamsulosin HCl (Tamsulosin Hcl 0.4 Mg Capsule) 0.8 mg PO DAILY [facility] Last Admin: 08/26/20 08:28 Dose: 0.8 mg Documented by: Medical Necessity - Tobacco Use Smoking Status: Never smoker Assessment/Plan All Active Problems (Last Reviewed 08/25/20 @ 16:[address] Zaheer Thompson MD) GI bleed (Acute) BRBPR (bright red blood per rectum) (Acute) Hemoglobin is stable. Please reconsult if we notice a drop in his hemoglobin or further bloody bowel movements. Inpatient E&M: 16547 Subs Hosp L2
[2020-08-26 10:40] LABS: Bedside Glucose 95 mg/dL (70-110)
[2020-08-26 11:53] VITALS: BP 134/70; PULSE 62; RESP 18; TEMP 36.3; O2SAT 94
--- NOTE | 2020-08-26 12:05 | DCINST_ITS ---
- Discharge Diagnoses Current Active Problems: Current Active and Chronic Problems (Last Reviewed 08/25/20 @ 16:[address] Zaheer Thompson MD) GI bleed (Acute) BRBPR (bright red blood per rectum) (Acute) You will use the following diet at home:: Regular Allergies/Adverse Reactions: Allergies aspirin Allergy (Verified 08/25/20 04:21) Rash atorvastatin calcium [From Lipitor] Allergy (Verified 08/25/20 04:21) Other finasteride Allergy (Verified 08/25/20 04:21) Rash ibuprofen [From Motrin] Allergy (Verified 08/25/20 04:21) Swelling simvastatin [From Zocor] Allergy (Verified 08/25/20 04:21) Other sulfamethoxazole [From Bactrim] Allergy (Verified 08/25/20 04:21) Unknown trimethoprim [From Bactrim] Allergy (Verified 08/25/20 04:21) Unknown Medications to take at Discharge Allopurinol [Zyloprim] 200 mg PO DAILYCM 03/18/15 Ezetimibe [Zetia] 10 mg PO DAILY 03/18/15 Multivit-Min/FA/Lycopene/Lut [Centrum Silver Tablet] 1 each PO DAILY 03/18/15 Pyridoxine HCl [Vitamin B-6] 100 mg PO DAILY 03/18/15 Tamsulosin HCl [Flomax] 0.8 mg PO QHS 03/18/15 metFORMIN (XR) [Glucophage Xr] 250 mg PO DAILY 08/18/19 Cholecalciferol (VIT D3) [Vitamin D3] 1,000 unit PO DAILY 08/25/20 Primary Care Physician: Isai Pedersen MD [Primary Care Provider] - Test Results: Test results from this visit will be discussed in further detail at your follow- up appointment, if applicable. Proposed Discharge Date: 08/26/20
[2020-08-26 12:11] LABS: Potassium 4.6 mmol/L (3.5-5.1)
--- NOTE | 2020-08-26 12:11 | DS.PCM_ITS ---
Discharge Date and Diagnosis - Problem List Patient Problems: Active and Suspected Problems (Last Reviewed 08/25/20 @ 16:[address] Zaheer Thompson MD) GI bleed (Acute) BRBPR (bright red blood per rectum) (Acute) Date of Admission: 08/25/20 Date of Discharge: 08/26/20 - Primary Discharge Diagnosis Acute Problems: Active Problems (Last Reviewed 08/25/20 @ 16:[address] Zaheer Thompson MD) GI bleed (Acute) BRBPR (bright red blood per rectum) (Acute) Hospital Course and Treatment Summary of Care Provided: Patient is a 80-year-old gentleman diagnosed with COVID-19 a week prior to his admission managed at home who presented to the emergency department with bright red per rectum admitted to the Covid unit for subsequent management 1. Acute lower GI bleed?suspected to be secondary to diverticular bleed admitted to regular nursing floor managed conservatively with consultation placed to Dr. Thompson with general surgery patient symptoms resolved 2. Recent COVID-19 infection ?Patient remains asymptomatic 3. BPH ?On tamsulosin did continue 4. Gout ?On allopurinol did continue 5. Dyslipidemia -Patient is on statin therapy, continued at home dose 6. Hypertension - Blood pressure controlled, home medications continued with dose adjustment as needed 7. Morbid obesity with BMI of 33.9 ?Weight loss advised 8. DVT prophylaxis SCDs 9. Hyperkalemia ?Patient was on lisinopril this was thought to be the cause discontinued on discharge Patient Problems: Active and Suspected Problems (Last Reviewed 08/25/20 @ 16:[address] Zaheer Thompson MD) GI bleed (Acute) BRBPR (bright red blood per rectum) (Acute) Objective: GENERAL: cooperative HEENT: Atraumatic; EYES; Anicteric, Normal Conjunctiva NECK; supple, normal thyroid, RESPIRATORY: Diminished to auscultation CARDIOVASCULAR: Regular S1 S2, GI: soft, normoactive bowel sounds, : No Renal angle tenderness; EXTREMITIES: No edema, no clubbing, MUSCULOSKELETAL: no muscle waisting NEURO: Awake; no lateralizing signs. SKIN: No Rash PSYCH; Flat affect - Physical Exam Vitals/I&O's: Vital Signs Temp Pulse Resp BP Pulse Ox 97.3 F L 62 18 134/70 H 94 08/26/20 11:53 08/26/20 11:53 08/26/20 11:53 08/26/20 11:53 08/26/20 11:53 Oxygen Delivery Method Room Air Weight: 107.275 kg Body Mass Index (BMI) 33.9 Intake and Output for Last 24 Hours 08/24/20 08/25/20 08/26/20 23:59 23:59 23:59 Intake Total 1550 / 1700 150 / 150 Output Total 850 / 1100 550 / 550 Balance 700 / 600 -400 / -400 Laboratory Results 08/25/20 16:32: Hgb 13.1, Hct 38.9 L 08/25/20 17:29: POC Glucose 134 H 08/25/20 22:05: Hgb 12.8 L, Hct 38.2 L 08/26/20 04:15: WBC 8.9, RBC 4.31 L, Hgb 13.4, Hct 41.5, MCV 96.3 H, MCH 31.1, MCHC 32.3, RDW Std Deviation 51.7 H, RDW Coeff of Joe 14.5, Plt Count 256, MPV 8.7 08/26/20 04:15: Sodium 136, Potassium 5.3 H, Chloride 111 H, Carbon Dioxide 14.0 L, Anion Gap 11, BUN 27 H, Creatinine 1.24, Estim Creat Clear Calc 49.88, Est GFR (MDRD) Af Amer 72, Est GFR (MDRD) Non-Af 60, BUN/Creatinine Ratio 21.8 H, Glucose 91, Calcium 8.1 L, Magnesium 2.6 08/26/20 08:21: POC Glucose 95 08/26/20 11:30: Potassium Pending Current Medications Allopurinol (Allopurinol 100 Mg Tablet) 200 mg PO DAILY [facility] Last Admin: 08/26/20 08:27 Dose: 200 mg Documented by: Ezetimibe (Ezetimibe 10 Mg Tablet) 10 mg PO DAILY [facility] Last Admin: 08/26/20 08:28 Dose: 10 mg Documented by: Sodium Chloride () 250 mls @ 15 mls/hr IV .[id number] PRN PRN Reason: Saline Flush Ondansetron HCl (Ondansetron 4 Mg/2 Ml Vial) 4 mg IV Q8H PRN PRN PRN Reason: NAUSEA/VOMITING Sodium Chloride (0.9% Saline Lock 10 Ml Syringe) 10 - 40 ml IV UD PRN PRN Reason: SALINE FLUSH Last Admin: 08/25/20 06:46 Dose: 10 ml Documented by: Tamsulosin HCl (Tamsulosin Hcl 0.4 Mg Capsule) 0.8 mg PO DAILY [facility] Last Admin: 08/26/20 08:28 Dose: 0.8 mg Documented by: Discharge Diet: No Restrictions Home Medications: Medications to take at Discharge Allopurinol [Zyloprim] 200 mg PO DAILYCM 03/18/15 Ezetimibe [Zetia] 10 mg PO DAILY 03/18/15 Multivit-Min/FA/Lycopene/Lut [Centrum Silver Tablet] 1 each PO DAILY 03/18/15 Pyridoxine HCl [Vitamin B-6] 100 mg PO DAILY 03/18/15 Tamsulosin HCl [Flomax] 0.8 mg PO QHS 03/18/15 metFORMIN (XR) [Glucophage Xr] 250 mg PO DAILY 08/18/19 Cholecalciferol (VIT D3) [Vitamin D3] 1,000 unit PO DAILY 08/25/20 Primary Care Physician: Isai Pedersen MD [Primary Care Provider] - Please follow up with your Primary Care Physician in: in 1-2 weeks Disposition: Home Minutes spent on discharge:: 45 Patient Condition:: Stable Medical Necessity - Tobacco Use Smoking Status: Never smoker Meaningful Use Info Meaningful Use Diagnoses (Choose all that apply): None applicable Inpatient E&M: 32605 Disch Hosp
[2020-08-26 15:20] LABS: Bedside Glucose 117 mg/dL (70-110)
== END 2020-08-26 15:15 | disposition home or self-care (01) | DRG 377 ==
LOC: ED 05:28 → MS2 05:32
PROVIDERS: Admitting Provider Hospitalist; Emergency Provider Emergency Medicine; PCP Family Medicine; Visit Provider Internal Medicine
DX: K57.91 Diverticulosis of intestine, part unspecified, without perforation or abscess with bleeding (principal); U07.1 COVID-19; I12.9 Hypertensive chronic kidney disease with stage 1 through stage 4 chronic kidney disease, or unspecified chronic kidney disease; N18.30 Chronic kidney disease, stage 3 unspecified; E78.5 Hyperlipidemia, unspecified; E11.22 Type 2 diabetes mellitus with diabetic chronic kidney disease; Z86.19 Personal history of other infectious and parasitic diseases; N40.0 Benign prostatic hyperplasia without lower urinary tract symptoms; M10.9 Gout, unspecified; Z68.34 Body mass index [BMI] 34.0-34.9, adult; E66.01 Morbid (severe) obesity due to excess calories; Z90.5 Acquired absence of kidney
CPT/HCPCS: 36415; 80048; 82962; 83735; 84132; 85014; 85018; 85025; 85027; 85610; 86850; 86900; 86901; 99285; J7030; A4216

== ENCOUNTER → 2021-03-31 14:37 | Outpatient (CLI) | payer MEDICARE, OTHER, SELFPAY ==
[2020-08-25 15:36] VITALS: BMI 33.9
--- NOTE | 2021-03-31 15:02 | CT_ITS ---
STUDY: CT SCAN LOWER EXTREMITY LEFT REASON FOR EXAM: Male, 81 years old. PRE OP.[facility] protocol. RADIATION DOSAGE (If Supplied By Facility): CTDIvol = ( 19.52 ) mGy, DLP = ( 3604.83 ) mGycm. Individualized dose optimization techniques were used for this CT.? TECHNIQUE: Multiple axial tomographic images of the left lower extremity was obtained. Coronal and sagittal reconstruction was obtained as well. COMPARISON: None. FINDINGS: Mild degree of joint space narrowing of the left hip joint. There is evidence of a degenerative spur formation along the lateral aspect of the femoral head. There is also evidence of mild degree of joint space narrowing of the left hip joint with degenerative spur formation of the femoral head. Moderate degree of joint space narrowing involving the medial compartment of the knee joint with evidence of spur formation. Mild degree of joint space narrowing of the patellofemoral joint with anterior spurring of the distal femur. Imaging of the ankle joint was obtained. No significant abnormality is seen. CT/Extremity Lower without Contra IMPRESSION: Moderate degree of joint space narrowing of the medial compartment of knee joint with degenerative spur formation as described. Electronically Signed: Darien Strong MD at 15:22 EDT , Service support ,
== END ==
LOC: CT 14:43
PROVIDERS: PCP Family Medicine; Referring Provider Orthopaedic Surgery; Visit Provider Orthopaedic Surgery
DX: M17.12 Unilateral primary osteoarthritis, left knee (principal)
CPT/HCPCS: 73700

== ENCOUNTER 2021-04-24 18:17 | Observation (INO) | payer MEDICARE, OTHER, SELFPAY ==
[2020-08-25 15:36] VITALS: BMI 33.9
--- NOTE | 2021-04-17 09:24 | EKG12_ITS ---
Test Reason : PRE-OP Blood Pressure : / mmHG Vent. Rate : 071 BPM Atrial Rate : 071 BPM P-R Int : 186 ms QRS Dur : 148 ms QT Int : 422 ms P-R-T Axes : 033 -26 015 degrees QTc Int : 458 ms Normal sinus rhythm Right bundle branch block Abnormal ECG Confirmed by ZULMA ZAMORA, SWETHA ([id number]), editor book NAVEED PEARL ([id number]) on 04/19/2021 1:59:03 PM Referred By: Chu Fink Confirmed By:TAMAR MAYA MD
[2021-04-17 09:42] LABS: Absolute Lymphocyte Count 5.51 X10^3/uL (0.83-4.51); Absolute Neutrophil Count 4.6 X10^3/uL (2.0-7.7); Basophil# 0.07 X10^3/uL; Basophil% 0.6 % (0-1); Eosinophil# 0.54 X10^3/uL; Eosinophils% 4.7 % (0-5); Hematocrit 42.1 % (40-54); Hemoglobin 13.8 g/dL (13.0-16.5); Lymphocyte # 5.51 X10^3/ul (0.83-4.51); Lymphocyte % 48.1 % (19-41); Mean Corp Hgb Conc 32.8 g/dL (32-36); Mean Corpuscular Hgb 30.9 pg (27.0-32.0); Mean Corpuscular Volume 94.4 fL (80-94); Mean Platelet Vol. 9.3 fl (6.2-12.0); Monocyte# 0.69 X10^3/uL; NRBC Flagged by Analyzer 0 % (0-5); Neutrophil # 4.61 X10^3/uL (2.7-7.7); Neutrophil % 40.3 % (47-70); POSITIVE DIFFERENTIAL YES; Platelet Count 208 K/mm3 (150-450); RBC Distribution Width SD 48.2 fl (35.1-43.9); Red Blood Count 4.46 M/mm3 (4.6-6.2); White Blood Count 11.5 K/mm3 (4.4-11.0)
[2021-04-17 09:43] LABS: Differential Indicated SCAN CRITERIA MET
[2021-04-17 10:05] LABS: Hemoglobin A1c 7.4 % (3.8-5.6); Magnesium 2.3 mg/dL (1.6-2.6)
[2021-04-17 10:08] LABS: Anion Gap 6 (5-15); BUN 28 mg/dL (7-18); BUN/Creat Ratio 18.3 RATIO (10-20); Calcium,Total 9.3 mg/dL (8.5-10.1); Chloride 105 mmol/L (98-107); Creatinine, Serum 1.53 mg/dL (0.70-1.30); EST Glomerular Filtration Rate 47 mL/min (>60); Est Glom Filt Rate - Afr Amer 57 mL/min (>60); Glucose 145 mg/dL (74-106); Potassium 4.5 mmol/L (3.5-5.1); Sodium Level 135 mmol/L (136-145)
[2021-04-17 10:10] LABS: Platelet Estimate ADEQUATE (ADEQ); Smudge Cells RARE
[2021-04-17 10:11] LABS: Red Cell Morphology NORM C+C NORMAL (NORM C&C)
[2021-04-24] VITALS (12 sets, daily range): BP systolic 112–162; BP diastolic 54–80; PULSE 52–69; RESP 16–18; TEMP 35.8–36.7; O2SAT 94–100; BMI 38.2; BMI 38.0
--- NOTE | 2021-04-24 | KNEE_PTH ---
PATIENT: KIYA NUNEZ LOC: MS3 U#:[id number] AGE/SX: 81/M ROOM[place] [facility] [place]24/[address]: Dr. Chu Fink MD : [id number] BED: 1 DIS: 04/25/2021 SPEC #: [id number] RECD: 04/25/21 07:41 STATUS: VÍCTOR REQ #: [id number] JENNIE: 04/24/21 00:[address]: Chu Fink DEPT: SURGICAL PATHOLOGY RECD BY: Gerald Maldonado ENTERED: 04/25/21 08:06 SP TYPE: TOTAL KNEE OTHR DR: MD Dr. Isai Loyola MD Tissues: Knee, NOS Procedures: Decalcification bone/plaque Surgery Specimen Level IV HEADER OPERATION: ERAS, total knee replacement robotic arm assist PRE-OP DIAGNOSIS: Osteoarthritis left knee TISSUE SUBMITTED: Bone and soft tissue left knee MICROSCOPIC DIAGNOSIS Bone and soft tissue of left knee, total knee resection: Severe degenerative joint disease. Mild synovial hyperplasia. AM:ania 04/27/2021 MICROSCOPIC DESCRIPTION Slides are reviewed. GROSS DESCRIPTION Received is one container designated bone and soft tissue left knee. The specimen consists of multiple fragments of blackwell-yellow bone measuring in aggregate 11.5 x 10 x 3.5 cm. Also in the specimen container are multiple fragments of yellow-white soft tissue measuring in aggregate 7 x 8 x 2.5 cm. A number of bony fragments contain articular surfaces consistent with tibial plateau and femoral condyle and displaying prominent osteophyte formation, eburnation, and bone erosion. Caramel Cutter Hand sections are submitted in two cassettes as follows: 1 - soft tissue, 2 - bone after decalcification. / SJ:ania 04/25/21 TC:5 [facility]: [id number], [id number]
--- NOTE | 2021-04-24 11:18 | RAD_ITS ---
STUDY: X-RAY CHEST REASON FOR EXAM: Male, 81 years old. Surgery TECHNIQUE: PA and lateral views of the chest. COMPARISON: None. FINDINGS: Mild increased linear markings at the lung bases likely more prominent on the left side suggestive linear atelectasis and/or scarring. There is no demonstrated pleural abnormality. Normal size heart. Normal mediastinum and abbey. Normal visualized pulmonary arteries. There is atherosclerotic tortuosity of the aortic arch and descending thoracic aorta. There are diffuse degenerative changes of the visualized thoracic spine. Prior right shoulder replacement. There is no demonstrated abnormality of the visualized soft tissue structures of the upper abdomen. RAD/Chest PA and Lateral IMPRESSION: Mild increased linear markings at the lung bases suggestive of linear atelectasis and/or scarring. Electronically Signed: Darien Strong MD at 12:34 EDT , Service support ,
[2021-04-24] MEDS: Lactated Ringers 1,000 ML 100 ML IV (12:25)
[2021-04-24] MEDS: Scopolamine 1mg/72hr Patch 1 PATCH TD (13:00)
[2021-04-24] MEDS: Acetaminophen 500 MG Tablet 1000 MG PO ×2 (13:00→22:19)
[2021-04-24] MEDS: Gabapentin 600 MG Tablet PO (13:00)
[2021-04-24 13:01] LABS: Bedside Glucose 164 mg/dL (70-110)
[2021-04-24] MEDS: Cefazolin 2 GM in 0.9% Normal Saline 100 ML IV (13:38)
[2021-04-24] MEDS: Joint Pain Solution (NO KETOROLAC) 100 ML IV (13:57)
--- NOTE | 2021-04-24 15:15 | PCM.OP.BLANK ---
Problems Associated Problem List Diagnoses (1) Osteoarthritis of left knee: Operative Report Date of Procedure: 04/24/21 Preoperative diagnosis: Left knee severe posttraumatic arthritis Postoperative diagnosis: Same Title of procedure : Left total knee replacement, press fit MATT Surgeon: Chu Fink MD Milk Bottling Machine Operator: yaya Ambrocio PA-C Anesthesia: Spinal adductor canal nerve block Anesthesiologist:Dr. Higgins / RIMA Special medications: Ancef, tranexamic acid EBL: 50 Complications: None Specimen: Bone and cartilage Indications for surgery: Patient is a 81 -year-old [male] with a history of knee arthritis appropriately treated and failed conservative measures and wished to proceed with total knee replacement. Patient was cleared for surgery by the medical doctor and has been evaluated by the anesthesia staff Findings: Intraoperative findings showed severe arthritis of the knee. Patient underwent knee replacement using [employer] press-fit total knee components Matt robotic assisted. Size [5 ] femur, size [5] tibia, [35 x 10] asymmetric X3 patella cemented, size [5-9 CS] X3 tibial polyethylene insert, knee was nicely balanced. Patella tracked well. Patient underwent standard wound closure in layers. Vicryl and strata fix sutures utilized followed by skin jakob. school psychologist assistant, physician delivery driver assistant, was utilized throughout the entire procedure. They were vital in helping with patient positioning, holding of retractors, exposing the tissues adequately for safe completion of the procedure including cutting of the bone, helping stripping and booking machine operator appropriate alignment and sizing of the components, implantation of the components, as well as wound closure, bandage application, and safe patient transfer. Without surgical assist, physician delivery driver assistant, surgical time would have been significantly increased, and surgical outcome could have been less optimal. Description of procedure: The patient was taken to the OR, transferred to the OR table. They were given a spinal anesthetic. Ancef was given IV preoperatively. Tranexamic acid was given IV preoperatively. Well-padded tourniquet was applied to the upper thigh of the operative leg. Nonoperative leg had a ELISA hose and SCD on throughout. Operative limb was prepped padded and draped in usual orthopedic sterile fashion for the procedure. We began by injecting the pain relieving solution in the anterior superior aspect of the knee region. The limb was exsanguinated, and the tourniquet was applied to 300 mmHg. Made a midline incision through skin, subcutaneous tissue, bringing down us on the extensor mechanism. Medial parapatellar arthrotomy was carried out. Straw-colored joint fluid was evacuated. We raised a sleeve of tissue off the upper medial tibia. Resected some of the infrapatellar fat pad. We remove degenerative medial and lateral meniscus. Removed bone spurs from about the patella. We removed tissue off the anterior aspect of the distal femur. Patella was translated laterally and/or everted as needed throughout the procedure. ACL was resected. PCL was preserved. Collateral ligaments were preserved. Physician placed the retractors and delivery driver assistant held retractors protecting above ligaments throughout the procedure. Patella was everted. Measured. Appropriate resection was carried out leaving us between a 13 and 15 mm thick patella. Metal plate was applied. Pins were placed in the femur and tibia at appropriate locations being bicortical. Check pin was placed in the distal femur and upper tibia at appropriate location. [employer] robot was appropriately prepared femur then tibia. Knee was appropriately stressed in 90 degrees of flexion as well as in extension. Robot was appropriately manipulated to allow for approximately 19 to 21 mm of flexion and extension gap. Good sizing and alignment of components was noted on computer. Robotic cuts were carried out cutting the upper tibia first, followed by femoral cuts. Milk Bottling Machine Operator help with retraction and protecting soft tissues throughout. Bone fragments were removed. we then sized off the upper tibia with the help of the delivery driver assistant. We then checked flexion extension gaps finding them to be adequate and equal. Tibial trial with plastic insert was inserted. Next the distal femoral trial was applied. Tibial tray was allowed to freefloat with a 9 mm insert. Knee was flexed and extended an external alignment guide is utilized. Tibial trial was pinned in place. Drill holes were placed into the distal femoral trial and it was removed. Punch was used on the upper tibial component and that was removed. The sclerotic bone was softened with a sharp pin. Bone spurs had been removed from the posterior medial and posterior lateral aspect of the femur while the delivery driver assistant lifted up on the distal femur and exposed each compartment. Patella was everted and measured. Patella was sized. Clamp was utilized. 3 drill holes were placed through the clamp held by the delivery driver assistant. Trial patella was placed and removed. Bleeding was controlled at the back of the knee with the bovey. Posterior knee soft tissues were carefully injected with pain relieving solution. Components were checked and open. . The bony surfaces cleaned and dried. Tibia, femur, press-fit into position. Tibial insert was placed just before placing the femur. Patella was cemented due to lack of equipment for press-fit patella. Milk Bottling Machine Operator held retractors exposing the bony surfaces of the tibia and femur which were hammered in position. Patella clamped into position.balancing was again checked with the computer. Checkpoints and femoral and tibial pins removed. we thoroughly irrigated and debrided the knee. Bleeding controlled with the Bovie. Knee was again thoroughly irrigated. Irresept solution utilized. Patella noted to track nicely. We repaired the arthrotomy with a combination of #1 Vicryl and #2 strata fix. We did a mid layer of 1 Vicryl and #0 strata fix running. [place] were utilized on the incision as well as pin sites. Mepilex dressing applied. ELISA hose and SCDs applied. Patient was awoken from their anesthetic, transferred back to their own bed and recovery room in satisfactory condition. Second dose of IV Tranexamic acid was given while closing wound. Patient was admitted, appropriate IV antibiotic to be utilized as well as medication for DVT prevention. Hopeful discharge in 1-2 days. Hospitalist service and Physical therapy will be consulted. Ancef was used 2 g IV preoperatively. Xarelto will be used for DVT prevention 10 mg daily This note was generated with [employer] dictation software. It may contain incorrect words, spelling, and punctuation that were not noted in checking the note before signing.
--- NOTE | 2021-04-24 16:13 | RAD_ITS ---
STUDY: X-RAY - LEFT KNEE REASON FOR EXAM: Male, 81 years old. post op -- AP and Lateral xray of operative knee in PACU TECHNIQUE: 2 view(s) of the knee. COMPARISON: None. FINDINGS: Status post total replacement of a left knee with postsurgical changes. Skin jakob are noted anteriorly. The hardware components are well aligned. RAD/Knee 1 or 2 Views IMPRESSION: Status post total replacement of the left knee with postsurgical changes. Electronically Signed: Martínez Calles DO at 17:45 EDT Tel [phone], Service support ,
[2021-04-24 16:50] LABS: Bedside Glucose 135 mg/dL (70-110)
--- NOTE | 2021-04-24 18:27 | PN_ITS ---
Documented by User: ZAYNAB Arce 04/24/21 18:41 Progress Note Patient is a 81-year-old male who underwent elective left total knee replacement with Dr. Fink today. Hospitalist consulted for medical management of patient's chronic diseases including diabetes mellitus type 2, BPH, hypertension, and chronic kidney disease stage IIIa. Patient is in bed no distress noted. Patient is drowsy but able to answer questions. Patient states he has 8 out of 10 pain to his leg at the site of the tourniquet. Family at bedside. Physical Exam Const alert, oriented x3 and no apparent distress Constitutional Narrative: Patient drowsy postop Nutritional Appearance: obese HEENT normocephalic and head/scalp atraumatic Eyes conjunctivae normal and no scleral icterus Neck full ROM and supple General: trachea midline Chest inspection of chest normal and palpation of chest normal Resp normal respiratory effort, normal air movement and clear to auscultation bilaterally Cardio regular rate, regular rhythm, S1 normal heart sound and S2 normal heart sound GI normal to inspection, nondistended, normoactive bowel sounds, soft to palpation and non-tender Extremity normal capillary refill, no clubbing, cyanosis or edema and no calf tenderness Peripheral Pulses: Yes pulses 2+ throughout Left Lower Extremity: knee joint inspection (Swollen), palpation (Tender), ROM (Limited) and neurovascular exam (Intact) Skin no rashes or lesions noted and skin turgor normal Wounds: wounds noted Wound Narrative: Surgical incision to left knee not visualized, surgical dressing dry and intact Neuro oriented x3, moves all extremities, no focal motor deficits and no sensory deficits noted Psych cooperative, affect normal and speech normal Assessment & Plan Assessment/Plan (1) Osteoarthritis of left knee: QUALIFIERS: Osteoarthritis type: unspecified Qualified Code(s): M17.12 - Unilateral primary osteoarthritis, left knee PLAN: 1. Left total knee replacement secondary to osteoarthritis of left knee -Surgery completed 04/24/2021 -Graduated pain management ordered per orthopedic surgeon -CBC and BMP ordered for a.m. -Encourage I-S -PT and OT to eval and treat 2. Diabetes mellitus type 2 -AC at bedtime blood sugars with sliding scale insulin ordered -Continue home regimen Metformin 3. Hypertension -Continue home medication regimen -Vital signs currently stable -Vital signs per protocol 4. BPH -Continue tamsulosin -Monitor intake and output for urinary retention postop DVT prophylaxis-SCDs, patient to start Eliquis 04/25/2021 This patient was seen by ZAYNAB Arce under the supervision of Dr. Cifuentes. Documented by User: Dr. Matt Martinez MD 04/24/21 19:28 Addendum Addendum: Patient was seen and examined independently. I agree with assessment and plan by ZAYNAB Arce In summary patient is an 81-year-old female significant history of hypertension; diabetes and BPH who had left total knee replacement, postop day 0 and for which internal medicine has been consulted for medical management. Physical exam: General: Well-nourished, well-developed, no acute distress Head: Normocephalic, atraumatic, no tenderness Eyes: PERRLA, EOMI ENT, no trauma, moist mucous membranes, no rhinorrhea Neck: Nontender, full range of motion, no spinal tenderness, deformities, step- off CVS: Regular rate and rhythm Respiratory no acute distress, clear to auscultation bilaterally, chest wall nontender, no wheezing Abdomen: Soft, nontender, nondistended, normal bowel sounds, no masses : Deferred Extremities: Left knee with ice pack in place. Skin: Normal color, no trauma, abrasions Neuro: Alert, oriented, cranial nerves II through XII grossly intact. Psychiatry: Normal mood. Normal affect. Not depressed. Not anxious. Left total knee replacement Management by orthopedic surgery. Hypertension Blood pressure is not within goal. Likely pain contributing. Pain management. Home blood pressure medication continued. Trend blood pressure and adjust blood pressure medications. Diabetes mellitus Patient with mild hyperglycemia Accu-Chek QA CHS with correction scale insulin ordered. Metformin continued Hyperlipidemia Ezetimibe continued. DVT prophylaxis SCD and ELISA hose in place Multi Select Codes Visit Charges Visit Charges: 06265 Subs Hosp L2
[2021-04-24] MEDS: Lactated Ringers 1,000 ML 125 ML IV (19:18)
--- NOTE | 2021-04-24 20:00 | NURSING ---
Pandemic documentation Date: 04/24/21 Time:1899
[2021-04-24] MEDS: Cefazolin 1 GM/50 ML BAG IV (20:17)
[2021-04-24] MEDS: Tamsulosin HCl 0.4 MG Capsule 0.8 MG PO (22:13)
[2021-04-24] MEDS: Senna/Docusate Sodium 1 Tablet 2 TABLET PO (22:14)
[2021-04-24] MEDS: Lisinopril 10 MG Tablet PO (22:14)
[2021-04-24] MEDS: Insulin Lispro 100 UNIT/ML INSULN.PEN SC (22:18)
[2021-04-24 22:31] LABS: Bedside Glucose 215 mg/dL (70-110)
[2021-04-25] MEDS: oxyCODONE 5 MG Tablet PO ×5 (00:34→15:58)
[2021-04-25 02:06] VITALS: BP 131/81; PULSE 66; RESP 18; TEMP 36.8; O2SAT 96
[2021-04-25] MEDS: Cefazolin 1 GM/50 ML BAG IV (05:02)
[2021-04-25] MEDS: Acetaminophen 500 MG Tablet 1000 MG PO ×2 (05:05→14:29)
[2021-04-25 05:11] VITALS: O2SAT 96
[2021-04-25 06:08] LABS: Hematocrit 37.8 % (40-54); Hemoglobin 12.4 g/dL (13.0-16.5); Mean Corp Hgb Conc 32.8 g/dL (32-36); Mean Corpuscular Hgb 31.6 pg (27.0-32.0); Mean Corpuscular Volume 96.4 fL (80-94); Mean Platelet Vol. 9.7 fl (6.2-12.0); Platelet Count 177 K/mm3 (150-450); RBC Distribution Width CV 14.4 % (11.6-14.6); RBC Distribution Width SD 50.4 fl (35.1-43.9); Red Blood Count 3.92 M/mm3 (4.6-6.2)
[2021-04-25 06:30] VITALS: BP 139/73; PULSE 75; RESP 18; TEMP 37.1; O2SAT 94
[2021-04-25] MEDS: Insulin Lispro 100 UNIT/ML INSULN.PEN SC ×2 (06:30→11:40)
[2021-04-25 06:36] LABS: Bedside Glucose 156 mg/dL (70-110)
[2021-04-25 06:42] LABS: Anion Gap 7 (5-15); BUN 21 mg/dL (7-18); BUN/Creat Ratio 15.7 RATIO (10-20); Calcium,Total 8.3 mg/dL (8.5-10.1); Chloride 102 mmol/L (98-107); Creatinine, Serum 1.34 mg/dL (0.70-1.30); EST Glomerular Filtration Rate 55 mL/min (>60); Est Glom Filt Rate - Afr Amer 66 mL/min (>60); Estimated Creatinine Clearance 42.54 ml/min; Glucose 145 mg/dL (74-106); Potassium 4.7 mmol/L (3.5-5.1); Sodium Level 131 mmol/L (136-145)
--- NOTE | 2021-04-25 07:17 | PCM.PN.ORT ---
Subjective Subjective Patient is postoperative day #1 left total knee replacement. Patient's pain is currently 4 out of 10. He is hoping for discharge to home today. Denies chest pain or shortness of breath. Denies productive cough. Objective Data Objective Data Vital Signs: Vital Signs Temp Pulse Resp BP Pulse Ox 98.7 F 75 18 139/73 H 94 04/25/21 06:30 04/25/21 06:30 04/25/21 06:30 04/25/21 06:30 04/25/21 06:30 Oxygen Flow Rate (L/min) 6 Oxygen Delivery Method Room Air Weight: 113.9 kg Body Mass Index (BMI) 38.0 Intake & Output: Intake and Output for Last 24 Hours 04/23/21 04/24/21 04/25/21 23:59 23:59 23:59 Intake Total 1298.25 / 1298.25 794.08 / 794.08 Output Total 1150 / 1150 Balance 1298.25 / 873.25 -355.92 / -355.92 Lab / Micro Data Result Diagrams: 04/25/21 05:54 04/25/21 05:54 Labs: Laboratory Results - last 24 hr 04/24/21 12:42: POC Glucose 164 H 04/24/21 16:41: POC Glucose 135 H 04/24/21 22:12: POC Glucose 215 H 04/25/21 05:54: WBC 10.0, RBC 3.92 L, Hgb 12.4 L, Hct 37.8 L, MCV 96.4 H, MCH 31.6, MCHC 32.8, RDW Std Deviation 50.4 H, RDW Coeff of Joe 14.4, Plt Count 177, MPV 9.7 04/25/21 05:54: Sodium 131 L, Potassium 4.7, Chloride 102, Carbon Dioxide 22.0, Anion Gap 7, BUN 21 H, Creatinine 1.34 H, Estim Creat Clear Calc 42.54, Est GFR (MDRD) Af Amer 66, Est GFR (MDRD) Non-Af 55 L, BUN/Creatinine Ratio 15.7, Glucose 145 H, Calcium 8.3 L 04/25/21 06:29: POC Glucose 156 H Micro: Microbiology 04/17/21 09:26 Swab (Method) Nasal Screen MRSA/MSSA - Final Radiography Diagnostic Testing: Radiology Impression Chest X-Ray 04/24/21 11:18 IMPRESSION: Mild increased linear markings at the lung bases suggestive of linear atelectasis and/or scarring. Electronically Signed: Darien Strong MD at 12:34 EDT , Service support , Knee X-Ray 04/24/21 16:13 IMPRESSION: Status post total replacement of the left knee with postsurgical changes. Electronically Signed: Martínez Calles DO at 17:45 EDT Tel [phone], Service support , Physical Exam Narrative His left knee bandages are on clean and dry. Left knee motion is 0-60 degrees. Left knee is clinically well aligned and stable. No calf pain or swelling bilaterally. Negative Homans' sign bilaterally. No hip pain with motion. No bruising or swelling about the thigh. Legs are neurovascular intact. Good distal pulses and sensation. X-rays and laboratory work reviewed. Note from hospitalist service reviewed Assessment & Plan Assessment/Plan (1) Osteoarthritis of left knee: QUALIFIERS: Osteoarthritis type: unspecified Qualified Code(s): M17.12 - Unilateral primary osteoarthritis, left knee PLAN: Postoperative day #1 left total knee replacement. We will use Xarelto for DVT prevention. From his medical history he has not tolerated aspirin or anti-inflammatories. Possibly allergic to aspirin. reportedly history of possible stomach ulcer or bleeding related to aspirin use. His family was unclear of the details. Continue with physical therapy, occupational therapy. Incentive spirometer use. Continue with ankle and foot exercises. Appropriate narcotic pain medication will be prescribed for postoperative use. Follow-up in the office as scheduled in 2 weeks. Mild blood loss anemia consistent with his surgical procedure. Diabetes and multiple medical problems. Continue evaluation and treatment per hospitalist service. We will continue under his primary care physician on discharge
--- NOTE | 2021-04-25 07:37 | EX.PCM.DISCH ---
Discharge Instructions Diet Discharge Diet: No restrictions Activity Discharge Activity: Return to Normal Activity and May Not Drive (while taking narcotic pain medications.) May shower in (days): 2 Ice area for (Minutes): 20 (or as needed) Weight Bearing Status: Weight bearing as tolerated Keep extremity elevated above heart level: Operative Extremity Dressing / Incision Call your doctor if your incision/area has: Continuous Slow Oozing, Sudden Increased Bleeding, Increased Pain/ Swelling, Increased Redness and Foul Smelling Discharge Call your doctor if you observe: Fever of 101 or Higher, Coldness, Increased Pain, Inability to urinate, Inability to have a bowel movement, Shortness of breath, Dizziness, Swelling in the ankles, Chest pain, Increased palpitations (irregular heartbeat), Calf discomfort and Uncontrolled pain Suture Line Care: Avoid Pulling/Pushing Remove Dressing in: 5 days Cleanse incision/area with: Soap & Water (after removing bandage in 5 days) Follow Up Care Test Results: Test results from this visit will be discussed in further detail at your follow-up appointment, if applicable. Discharge Plan Admission Admit Date/Time: 04/24/21 18:17 Attending Provider: Chu Fink Primary Care Provider: Isai Pedersen Consulting Providers: Shirley Cifuentes Discharge Orders/Prescriptions Prescriptions: New acetaminophen 500 mg Tablet 1,000 mg PO Q8 Qty: 60 RF: 0 oxycodone 5 mg Tablet 5 - 10 mg PO Q4H PRN PRN (Reason: Pain Score 4-10) 7 Days Qty: 56 RF: 0 Xarelto 10 mg Tablet 10 mg PO 0800 Qty: 12 RF: 0 sennosides-docusate sodium [Stool Softener-Stimulant Laxat] 8.6-50 mg Tablet 2 tab PO BID PRN (Reason: constipation) Qty: 30 RF: 0 Continued allopurinol 100 MG tablet 200 mg PO DAILYCM RF: 0 tamsulosin 0.4 MG capsule 0.8 mg PO QHS RF: 0 pyridoxine (vitamin B6) 100 MG tablet 100 mg PO DAILY RF: 0 ezetimibe 10 MG tablet 10 mg PO DAILY RF: 0 Centrum Silver 1 EACH tablet 1 ea PO DAILY RF: 0 metformin 500 MG tablet 250 mg PO DAILY RF: 0 cholecalciferol (vitamin D3) 1,000 UNIT tablet 1,000 unit PO DAILY RF: 0 lisinopril 10 mg Tablet 10 mg PO QHS RF: 0 loratadine [Claritin] 10 mg Tablet 10 mg PO DAILY RF: 0 Other Ambulatory Orders: Chest PA and Lateral (Routine) Timeframe: [id number] Facility: [facility] - Location: [facility] Ordered By: Dr. Chu Fink 12 Lead EKG (Routine) Timeframe: [id number] Facility: [facility] - Location: [facility] Ordered By: Dr. Chu Fink Referrals / Follow Up: Isai Pedersen MD [Primary Care Provider] - Disposition Disposition (needs filled in before D/C Order can be placed): Home, Self Care
[2021-04-25] MEDS: Rivaroxaban 10 MG Tablet PO (08:38)
[2021-04-25] MEDS: Allopurinol 100 MG Tablet 200 MG PO (08:38)
[2021-04-25] MEDS: metFORMIN HCl 500 MG Tablet 250 MG PO (08:38)
[2021-04-25 08:42] VITALS: BP 137/90; PULSE 94; RESP 18; TEMP 36.7; O2SAT 92
[2021-04-25] MEDS: Ezetimibe 10 MG Tablet PO (09:17)
[2021-04-25] MEDS: Senna/Docusate Sodium 1 Tablet 2 TABLET PO (09:17)
[2021-04-25] MEDS: Loratadine 10 MG Tablet PO (09:17)
[2021-04-25 09:20] VITALS: PULSE 84
--- NOTE | 2021-04-25 11:37 | CASEMGMT ---
Addendum entered by Irene Hdez 04/25/21 12:11: Call placed to [facility]. Appts for therapy cancelled at this time. Quincy @ [facility] made aware pt will be going to TCU @ discharge. Original Note: RN CORINE CUSTOMER GREETER CM to room to meet with patient for initial transition planning/care coordination assessment. ENOCH POOL introduced self and role at [facility]. Pt voices understanding and consents to assessment at this time. Pt resting in bed in no distress at this time. , Breanne, and dtr, Anjana, @ bedside. Pt agreeable to assessment w/family present. Pt is A/O at this time and answers all questions appropriately. Care providers, pharmacy, and demographics verified/updated at this time. PCP: Dr Pedersen Specialists: Dr Chu Fink-ortho surgeon, Dr Rico-surgeon @ [facility] Preferred Pharmacy:[email or web address] [place] Insurance: MCR, [employer] Prescription Benefit: Yes. LNOK: , Breanne. Dtr, Anjana Living Arrangements: Lives w/his , Breanne, in one-story home w/2 steps to enter. Was independent w/ADL's prior to surgery. does home mgmt tasks and manages pt's meds/appts. 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 Transportation: Pt/. DME: Has the following DME: functioning glucometer w/supplies, tub bench and shower chair, RTS, walker. Pt/ state no need for further DME at this time. HHC/SNF: No history of either. Pt has appts scheduled @ [facility] beginning tomorrow 04/26. Pt/ voice concerns w/pt going home. Pt states after working w/therapy this morning, he does not feel safe to go home and agrees, stating she is concerned she would not be able to assist him w/getting up and walking. Pt/ state they feel pt needs to go somewhere for therapy prior to returning home and state TCU is 1st preference. PLAN: SNF. TCU is 1st preference. Jasmyne HERNANDEZ, made aware. Susan AVILES RN, CM
[2021-04-25 11:51] LABS: Bedside Glucose 217 mg/dL (70-110)
--- NOTE | 2021-04-25 12:00 | CASEMGMT ---
Addendum entered by Jasmyne Santana 04/25/21 14:35: Discharge paperwork received. Original in SNF folder and copy on pt's chart. Addendum entered by Jasmyne Santana 04/25/21 14:18: SW spoke with Dr. Fink regarding SNF discharge and paperwork needed. Dr. Fink requested paperwork be faxed to him at [phone]. SW faxed paperwork. Original Note: Social Work Note SW received referral for SNF placement and that pt/pt's family prefer [facility] TCU. SW placed a call to [facility] with TCU and provided referral. TCU is able to accept pt today. MARY placed a call to physician's office and spoke with Sung and updated Sung on pt's discharge plans and documentation that is needed from physician. Pt will also need a COVID test. SW in to speak with pt. Pt's Breanne and daughter Anjana present in room. SW updated pt, Breanne and Anjana that pt has been accepted to TCU and will discharge there today. Patient was provided a list of SNF providers including quality and resource use data and consistent with the patient?s preferred geographic region, medical needs, and insurance network. Pt agreeable to TCU. Plan: TCU today Jasmyne Santana MSW, DERRICK OPERATOR
--- NOTE | 2021-04-25 13:58 | PCM.PN.HOSP ---
Subjective Subjective Patient was seen and examined. His pain is fairly controlled. Denied any chest pain or dizziness or palpitation. Objective Data Objective Data Vital Signs: Vital Signs Temp Pulse Resp BP Pulse Ox 98.1 F 84 18 137/90 H 92 04/25/21 08:42 04/25/21 09:20 04/25/21 08:42 04/25/21 08:42 04/25/21 08:42 Oxygen Flow Rate (L/min) 6 Oxygen Delivery Method Room Air Weight: 113.9 kg Body Mass Index (BMI) 38.0 Intake & Output: Intake and Output for Last 24 Hours 04/23/21 04/24/21 04/25/21 23:59 23:59 23:59 Intake Total 1298.25 / 1298.25 794.08 / 794.08 Output Total 1150 / 1150 Balance 1298.25 / 873.25 -355.92 / -355.92 Lab / Micro Data Result Diagrams: 04/25/21 05:54 04/25/21 05:54 Labs: Laboratory Results - last 24 hr 04/24/21 16:41: POC Glucose 135 H 04/24/21 22:12: POC Glucose 215 H 04/25/21 05:54: WBC 10.0, RBC 3.92 L, Hgb 12.4 L, Hct 37.8 L, MCV 96.4 H, MCH 31.6, MCHC 32.8, RDW Std Deviation 50.4 H, RDW Coeff of Joe 14.4, Plt Count 177, MPV 9.7 04/25/21 05:54: Sodium 131 L, Potassium 4.7, Chloride 102, Carbon Dioxide 22.0, Anion Gap 7, BUN 21 H, Creatinine 1.34 H, Estim Creat Clear Calc 42.54, Est GFR (MDRD) Af Amer 66, Est GFR (MDRD) Non-Af 55 L, BUN/Creatinine Ratio 15.7, Glucose 145 H, Calcium 8.3 L 04/25/21 06:29: POC Glucose 156 H 04/25/21 11:36: POC Glucose 217 H Micro: Microbiology 04/17/21 09:26 Swab (Method) Nasal Screen MRSA/MSSA - Final Radiography Diagnostic Testing: Radiology Impression Knee X-Ray 04/24/21 16:13 IMPRESSION: Status post total replacement of the left knee with postsurgical changes. Electronically Signed: Martínez Calles DO at 17:45 EDT Tel [phone], Service support , Physical Exam Narrative Physical exam: General: Alert, Oriented x3, Cooperative, No apparent distress, Well developed, obese HEENT: Atraumatic Oral: Moist Mucosa Neck: Supple Lungs: Diminished to auscultation Cardiovascular: HS I+II, regular, no murmurs Abdomen: Bowel Sounds Present, Soft, Non Tender Extremities: Left knee has dressing and ice pack in place Assessment & Plan Assessment/Plan (1) Osteoarthritis of left knee: QUALIFIERS: Osteoarthritis type: unspecified Qualified Code(s): M17.12 - Unilateral primary osteoarthritis, left knee (2) Status post left knee replacement: PLAN: 1. Postop day #1 status post left knee total replacement, pain is fairly controlled Patient has been working with PT and OT, discharge plan for TCU ongoing 2. Type II DM, on Metformin to 50 mg p.o. daily, blood sugars uncontrolled, HbA1c is 7.4 Will increase Metformin to 500 mg daily 3. Rest of his chronic medical conditions including hypertension, BPH remained stable Home medication reviewed and continued Charges/Coding Visit Charges Inpatient E&M: 33050 Subs Hosp L2
[2021-04-25 15:24] VITALS: BP 164/72; PULSE 86; RESP 18; TEMP 36.7; O2SAT 93
== END 2021-04-25 16:20 ==
LOC: SDC 18:28 → MS3 18:28
PROVIDERS: Anesthesiology; Admitting Provider Orthopaedic Surgery; PCP Family Medicine; Referring Provider Orthopaedic Surgery; Visit Provider Orthopaedic Surgery
PROC: 0SRD0JZ Replacement of Left Knee Joint with Synthetic Substitute, Open Approach (ICD-10-PCS; CPT 27447; principal; 2021-04-24 12:30)
DX: M17.32 Unilateral post-traumatic osteoarthritis, left knee (principal); N40.0 Benign prostatic hyperplasia without lower urinary tract symptoms; E11.22 Type 2 diabetes mellitus with diabetic chronic kidney disease; I12.9 Hypertensive chronic kidney disease with stage 1 through stage 4 chronic kidney disease, or unspecified chronic kidney disease; N18.31 Chronic kidney disease, stage 3a; E78.5 Hyperlipidemia, unspecified; Z79.899 Other long term (current) drug therapy; Z79.84 Long term (current) use of oral hypoglycemic drugs
CPT/HCPCS: 01402; 27447; 64447; S2900; 36415; 71046; 73560; 80048; 82962; 83036; 83735; 85025; 85027; 87081; 87426; 88305; 88311; 93005; 96361; 96365; 96366; 97110; 97116; 97162; 97166; 97530; 97535; 99218; 99251; C1776; J7120; G0378; G0463

== ENCOUNTER 2021-04-25 16:28 | Inpatient (IN) | payer MEDICARE, OTHER, SELFPAY ==
[2021-04-24 18:11] VITALS: BMI 38.0
[2021-04-25 16:43] VITALS: BP 171/73; PULSE 84; RESP 22; TEMP 37.1; O2SAT 94
[2021-04-25 17:16] LABS: Bedside Glucose 218 mg/dL (70-110)
--- NOTE | 2021-04-25 19:55 | PCM.HP.STD ---
HPI - General General Date of Admission: 04/25/21 HPI Narrative KIYA NUNEZ, is a 81 YO M with a PMH of hypertension, BPH, diabetes mellitus type 2, vitamin D deficiency, stage IIIa chronic renal failure, obesity, hyperlipidemia, gout, OA and right nephrectomy secondary to renal cysts who was admitted to [facility] on 04/24/21 for a L TKR by Dr. Chu Fink. On postoperative day #1 he complained of being lightheaded and very painful and he was moving slowly with limited gait. It took him 12 minutes to walk 35 feet and he had an unsteady gait and was shaky. He required verbal cues throughout for walker safety. Therapy recommended he be transferred to the transitional care unit for physical therapy a minimum of 5 times a week to strengthen him and make sure that he will be safe going home and using a front wheeled walker. He was admitted to TCU late in the day for strengthening/rehabilitation prior to going home. [facility] Medical History (Updated 04/26/21 @ 08:[address] Laurence Schultz, ) Arthritis Back pain BRBPR (bright red blood per rectum) Cancer Cardiology follow-up encounter Diabetes Dietary restriction GI bleed Heartburn High cholesterol History of diverticulitis History of edema History of pain when walking History of stress test Hypertension Leg cramps Loss of hearing Non-smoker Obesity due to excess calories Prostate disease Shortness of breath on exertion Wears dentures Wears glasses Home Medications Centrum Silver 1 ea PO DAILY 03/18/15 [History Last Taken Unknown] allopurinol 200 mg PO DAILYCM 03/18/15 [History Last Taken Unknown] ezetimibe 10 mg PO DAILY 03/18/15 [History Last Taken Unknown] pyridoxine (vitamin B6) 100 mg PO DAILY 03/18/15 [History Last Taken Unknown] tamsulosin 0.8 mg PO QHS 03/18/15 [History Last Taken Unknown] cholecalciferol (vitamin D3) 1,000 unit PO DAILY 08/25/20 [History Last Taken Unknown] lisinopril 10 mg PO QHS 04/10/21 [History Last Taken Unknown] loratadine [Claritin] 10 mg PO DAILY 04/10/21 [History Last Taken Unknown] acetaminophen 1,000 mg PO Q8 04/25/21 [History Last Taken Unknown] metformin 500 mg PO DAILY 04/25/21 [History Last Taken Unknown] oxycodone 5 mg PO Q4H PRN 3 Days #20 cap 04/25/21 [Rx Last Taken Unknown] rivaroxaban [Xarelto] 10 mg PO 0800 04/25/21 [History Last Taken Unknown] sennosides-docusate sodium [Stool Softener-Stimulant Laxat] 2 tab PO BID PRN #30 tab 04/25/21 [Rx Last Taken Unknown] Allergy/AdvReac Type Severity Reaction Status Date / Time aspirin Allergy Rash Verified 04/10/21 09:10 atorvastatin calcium Allergy Other Verified 04/10/21 09:10 [From Lipitor] finasteride Allergy Rash Verified 04/10/21 09:10 ibuprofen [From Motrin] Allergy Swelling Verified 04/10/21 09:10 simvastatin [From Zocor] Allergy Other Verified 04/10/21 09:10 sulfamethoxazole Allergy Unknown Verified 04/10/21 09:10 [From Bactrim] trimethoprim [From Bactrim] Allergy Unknown Verified 04/10/21 09:10 Surgical History (Updated 04/26/21 @ 08:[address] Laurence Schultz DO) History of nephrectomy, right History of surgical removal of skin lesion Hx of bursectomy Hx of colonoscopy Hx of tonsillectomy Hx of total shoulder replacement Status post left knee replacement Social History Smoking Status: Never smoker ROS Constitutional Constitutional: Reports weakness; Denies anorexia, change in weight, chills, fatigue, fever(s) or night sweats Eyes Eyes: Denies blurry vision, change in vision, eye pain or loss of vision ENT HEENT: Denies abnormal hearing, dysphagia, headache(s), hearing loss, nasal congestion or sore throat Cardiovascular Cardiovascular: Denies chest pain, dyspnea on exertion, edema, lightheadedness, orthopnea, palpitations, paroxysmal nocturnal dyspnea or syncope Respiratory/Chest Respiratory/Chest: Reports dyspnea and shortness of breath with exertion; Denies cough, shortness of breath at rest or wheezing Gastrointestinal Gastrointestinal: Denies abdominal pain, constipation, diarrhea, dyspepsia, hematemesis, hematochezia, nausea or vomiting Genitourinary Genitourinary: Reports nocturia; Denies dysuria, hematuria, urinary frequency, urinary hesitancy, urinary incontinence or urinary urgency Musculoskeletal Musculoskeletal: Reports joint pain and joint swelling; Denies back pain or neck pain Integumentary Integumentary: Denies non-healing lesions Neurologic Neurologic: Denies confusion, disequilibrium, dizziness, focal weakness, headache(s), paresthesias, seizures or tremor(s) Psychiatric Psychiatric: Denies anxiety, depression, homicidal ideation or suicidal ideation Endocrine Endocrinology: Denies change in body appearance, polydipsia or polyuria Hematologic/Lymphatic Hematologic/Lymphatic: Denies easy bleeding, easy bruising or lymphadenopathy Allergic/Immunologic Allergic/Immunologic: Denies rhinitis, eczemia or asthma Vital Signs Vital Signs Vital Signs: 04/25/21 16:43 Temperature 98.7 F Temperature Source Temporal Pulse Rate 84 Respiratory Rate 22 H Blood Pressure 171/73 H Blood Pressure Mean 105 Blood Pressure Source Monitor Blood Pressure Position Supine Blood Pressure Location Left Arm Pulse Ox 94 Oxygen Delivery Method Room Air Weight Weight: 258 lb 4 oz Body Mass Index (BMI) 38.0 Physical Exam Const alert, oriented x3 and no apparent distress Constitutional Narrative: He was lying in bed reading the paper and had the TV on. He complained of pain 6-8 at the time but, he looked comfortable General Appearance: cooperative, well kempt and well developed HEENT normocephalic and head/scalp atraumatic Eyes PERRL, EOMs intact bilaterally and no scleral icterus Neck supple General: trachea midline Chest Chest: symmetrical chest wall rise Resp normal respiratory effort and clear to auscultation bilaterally Resp Narrative: somewhat diminished. Not tachypneic, no accessory muscle use, no conversational dyspnea. Cardio regular rate, regular rhythm, S1 normal heart sound, S2 normal heart sound, no murmurs, no rub and no gallops GI GI Narrative: obese, soft, ND, Normal BS's, NT to palpation and no guarding with palpation Extremity Extremity Narrative: The left knee is swollen and warm to touch. There is also swelling in the calf but he has a negative Rahul and a negative Jie's sign. Peripheral Pulses: Yes pulses 2+ throughout Skin General Skin Exam: no breakdown Rashes: no rashes Wound Narrative: the Left knee incision is covered with a dressing that will not be removed for a few days Neuro CN's II-XII intact bilaterally and no focal motor deficits Psych mental status grossly normal, thought process normal, cooperative and affect normal Psych Narrative: very pleasant and making good eye contact. He is not fidgety Results Lab / Micro Data Result Diagrams: 04/26/21 05:19 04/26/21 05:19 Labs: Laboratory Results - last 24 hr 04/25/21 17:03: POC Glucose 218 H Assessment & Plan Assessment/Plan (1) Physical debility: (2) Osteoarthritis of left knee: QUALIFIERS: Osteoarthritis type: unspecified Qualified Code(s): M17.12 - Unilateral primary osteoarthritis, left knee (3) Status post total left knee replacement: (4) Other acute postprocedural pain: (5) Hyponatremia: (6) Acute postoperative anemia due to expected blood loss: (7) Diabetes mellitus, type 2: QUALIFIERS: Diabetes mellitus roller coaster designer insulin use: without jail use Diabetes mellitus complication status: with other specified complication Qualified Code(s): E11.69 - Type 2 diabetes mellitus with other specified complication (8) Hyperlipidemia: (9) Acquired solitary kidney: (10) Chronic renal failure, stage 3a: (11) Presbycusis: QUALIFIERS: Laterality: bilateral Qualified Code(s): H91.13 - Presbycusis, bilateral (12) BPH (benign prostatic hyperplasia): QUALIFIERS: Lower urinary tract symptom presence: symptoms present Lower urinary tract symptom detail: nocturia Qualified Code(s): N40.1 - Benign prostatic hyperplasia with lower urinary tract symptoms; R35.1 - Nocturia (13) Gout: QUALIFIERS: Gout site: unspecified site Gout etiology: unspecified cause (14) Unstable gait: (15) Obesity due to excess calories: PLAN: PLAN PT for gait stability OT for ADL's Analgesics as needed - he rates his pain at a 6-8 but, is reading in bed and watching TV.....does not appear to be in severe pain. Bowel protocol Fall precautions Assess for Anxiety/Depression GI prophylaxis not necessary at this time DVT prophylaxis with Xarelto 10 mg p.o. daily Follow up with PCP and Dr. Chu Fink following DC from IP Rehab AM lab including CMP, CBC. Last HGBA1C was 7.4 Accuchecks Polar ice Charges/Coding Visit Charges Inpatient E&M: 08362 SNF Init L2
[2021-04-25 22:01] LABS: Bedside Glucose 215 mg/dL (70-110)
[2021-04-25 22:25] VITALS: BMI 37.4
[2021-04-25 22:38] VITALS: RESP 16; O2SAT 92
[2021-04-25] MEDS: Tamsulosin HCl 0.4 MG Capsule 0.8 MG PO (23:00)
[2021-04-25] MEDS: oxyCODONE 5 MG Tablet PO (23:00)
[2021-04-25] MEDS: Acetaminophen 500 MG Tablet 1000 MG PO (23:01)
[2021-04-25] MEDS: Lisinopril 10 MG Tablet PO (23:02)
[2021-04-26 05:35] LABS: Absolute Lymphocyte Count 3.46 X10^3/uL (0.83-4.51); Absolute Neutrophil Count 7.4 X10^3/uL (2.0-7.7); Basophil# 0.03 X10^3/uL; Basophil% 0.2 % (0-1); Eosinophil# 0.07 X10^3/uL; Eosinophils% 0.6 % (0-5); Hematocrit 36.1 % (40-54); Hemoglobin 12.4 g/dL (13.0-16.5); Lymphocyte # 3.46 X10^3/ul (0.83-4.51); Lymphocyte % 27.8 % (19-41); Mean Corp Hgb Conc 34.3 g/dL (32-36); Mean Corpuscular Volume 93.3 fL (80-94); Mean Platelet Vol. 9.4 fl (6.2-12.0); Monocyte# 1.41 X10^3/uL; Monocyte% 11.3 % (0-10); NRBC Flagged by Analyzer 0 % (0-5); Neutrophil # 7.44 X10^3/uL (2.7-7.7); Neutrophil % 59.8 % (47-70); Platelet Count 184 K/mm3 (150-450); RBC Distribution Width CV 14.5 % (11.6-14.6); RBC Distribution Width SD 48.7 fl (35.1-43.9); Red Blood Count 3.87 M/mm3 (4.6-6.2); White Blood Count 12.5 K/mm3 (4.4-11.0)
[2021-04-26 05:43] VITALS: BP 131/61; PULSE 86
[2021-04-26] MEDS: oxyCODONE 5 MG Tablet PO ×3 (05:46→20:01)
[2021-04-26] MEDS: Pyridoxine HCl 100 MG Tablet PO (05:47)
[2021-04-26] MEDS: Ezetimibe 10 MG Tablet PO (05:47)
[2021-04-26] MEDS: Acetaminophen 500 MG Tablet 1000 MG PO ×3 (05:47→21:20)
[2021-04-26] MEDS: Loratadine 10 MG Tablet PO (05:47)
[2021-04-26] MEDS: Cholecalciferol (VIT D3) 25 MCG TABLET (1,000 UNITS) PO (05:47)
[2021-04-26 06:09] LABS: Anion Gap 8 (5-15); BUN 23 mg/dL (7-18); BUN/Creat Ratio 16.3 RATIO (10-20); Calcium,Total 8.5 mg/dL (8.5-10.1); Chloride 100 mmol/L (98-107); Creatinine, Serum 1.41 mg/dL (0.70-1.30); EST Glomerular Filtration Rate 51 mL/min (>60); Est Glom Filt Rate - Afr Amer 62 mL/min (>60); Estimated Creatinine Clearance 40.43 ml/min; Glucose 167 mg/dL (74-106); Potassium 4.3 mmol/L (3.5-5.1); Sodium Level 130 mmol/L (136-145)
[2021-04-26 06:21] LABS: Bedside Glucose 172 mg/dL (70-110)
[2021-04-26] MEDS: Rivaroxaban 10 MG Tablet PO (08:26)
[2021-04-26] MEDS: metFORMIN HCl 500 MG Tablet PO (08:26)
[2021-04-26] MEDS: Multivitamins,Ther W-Minerals Tablet 1 TABLET PO (08:26)
[2021-04-26] MEDS: Allopurinol 100 MG Tablet 200 MG PO (09:31)
[2021-04-26] MEDS: Tuberculin,Purif.prot.deriv. 50 TU/ML Vial 0.1 ML ID (10:05)
--- NOTE | 2021-04-26 10:10 | NURSING ---
brought in covid vaccine card, copied and placed in chart
[2021-04-26 11:21] LABS: Bedside Glucose 235 mg/dL (70-110)
--- NOTE | 2021-04-26 15:49 | CHAPLAIN ---
Type of Pastoral Visit _x__ Initial Visit ___ Follow-up Visit ___ On-call Visit ___ General Patient Visit ___ Spiritual Assessment ___ Family Conference ___ Bereavement ___ Rapid Response ___ Code Blue ___ Other (describe below) Pastoral Care Referral From _x__ Patient ___ Family ___ Nurse ___ Physician ___ French Edge Operator ___ Business Info Consultant ___ Other (describe below) Sacrament/Intervention _x__ Active listening ___ Anointing ___ Hoahaoism ___ Bereavement ___ Communion ___ Ariana exploration ___ ___ Life review ___ Prayer ___ Reconciliation ___ Sacrament of Sick ___ Supportive presence ___ Wedding ___ Other (describe below) Pastoral Comments introduction of self and role to patient; family members are visiting at this time so visit was shortened for their behalf; pt welcomes future visits
--- NOTE | 2021-04-26 15:52 | CASEMGMT ---
Social Work Met with pt for initial assessment. MARY discussed code status with pt and assisted in completing MOLST form. Pt wishes to be full code with intubation. MOLST form communicated to nursing and physician and placed in chart. SW explained Medicare Benefit and encouraged pt to contact secondary insurance to ensure copay coverage. Pt plans to return home with at time of discharge. SW to follow. HENRY Atkinson
[2021-04-26 16:00] VITALS: BP 108/62; PULSE 93; RESP 18; TEMP 37; O2SAT 98
[2021-04-26 17:01] LABS: Bedside Glucose 256 mg/dL (70-110)
[2021-04-26 21:00] VITALS: PULSE 90; RESP 18; O2SAT 98
[2021-04-26] MEDS: Lisinopril 10 MG Tablet PO (21:20)
[2021-04-26] MEDS: Tamsulosin HCl 0.4 MG Capsule 0.8 MG PO (21:20)
[2021-04-26 21:41] LABS: Bedside Glucose 207 mg/dL (70-110)
[2021-04-27 05:43] VITALS: BP 114/40; PULSE 78; RESP 16; TEMP 36.7; O2SAT 93
[2021-04-27] MEDS: Acetaminophen 500 MG Tablet 1000 MG PO ×3 (05:50→21:17)
[2021-04-27] MEDS: Loratadine 10 MG Tablet PO (05:50)
[2021-04-27] MEDS: Pyridoxine HCl 100 MG Tablet PO (05:51)
[2021-04-27] MEDS: Ezetimibe 10 MG Tablet PO (05:52)
[2021-04-27] MEDS: Cholecalciferol (VIT D3) 25 MCG TABLET (1,000 UNITS) PO (05:52)
[2021-04-27 05:58] VITALS: BP 106/50; PULSE 80
[2021-04-27 06:26] LABS: Bedside Glucose 146 mg/dL (70-110)
[2021-04-27] MEDS: Allopurinol 100 MG Tablet 200 MG PO (08:37)
[2021-04-27] MEDS: metFORMIN HCl 500 MG Tablet PO (08:37)
[2021-04-27] MEDS: Senna/Docusate Sodium 1 Tablet 2 TABLET PO (08:37)
[2021-04-27] MEDS: Multivitamins,Ther W-Minerals Tablet 1 TABLET PO (08:37)
[2021-04-27] MEDS: Rivaroxaban 10 MG Tablet PO (08:37)
[2021-04-27] MEDS: oxyCODONE 5 MG Tablet PO (08:39)
[2021-04-27 10:00] VITALS: PULSE 89; RESP 18; O2SAT 95
[2021-04-27 10:31] LABS: Bedside Glucose 255 mg/dL (70-110)
[2021-04-27 13:54] VITALS: BP 117/53; PULSE 82; RESP 18; TEMP 36.4; O2SAT 94
--- NOTE | 2021-04-27 15:33 | PHA.CONS_ITS ---
Progress Note - Pharmacy Subjective: TCU ADMISSION Objective: Allergies aspirin Allergy (Verified 04/10/21 09:10) Rash atorvastatin calcium [From Lipitor] Allergy (Verified 04/10/21 09:10) Other finasteride Allergy (Verified 04/10/21 09:10) Rash ibuprofen [From Motrin] Allergy (Verified 04/10/21 09:10) Swelling simvastatin [From Zocor] Allergy (Verified 04/10/21 09:10) Other sulfamethoxazole [From Bactrim] Allergy (Verified 04/10/21 09:10) Unknown trimethoprim [From Bactrim] Allergy (Verified 04/10/21 09:10) Unknown Current Medications Generic Name Dose Route Start Last Admin Trade Name Freq PRN Reason Stop Dose Admin Acetaminophen 1,000 mg 04/25/21 22:00 04/27/21 14:47 Acetaminophen 500 Mg Tablet PO 1,000 mg Q8 LOIS Administration Allopurinol 200 mg 04/26/21 08:00 04/27/21 08:37 Allopurinol 100 Mg Tablet PO 200 mg DAILYCM LOIS Administration Cholecalciferol 25 mcg 04/26/21 06:00 04/27/21 05:52 Cholecalciferol (Vit D3) 25 Mcg Tablet (1,000 Units) PO 25 mcg DAILY LOIS Administration Ezetimibe 10 mg 04/26/21 06:00 04/27/21 05:52 Ezetimibe 10 Mg Tablet PO 10 mg DAILY LOIS Administration Lisinopril 10 mg 04/25/21 22:00 04/26/21 21:20 Lisinopril 10 Mg Tablet PO 10 mg QHS LIOS Administration Loratadine 10 mg 04/26/21 06:00 04/27/21 05:50 Loratadine 10 Mg Tablet PO 10 mg DAILY LOIS Administration Metformin HCl 500 mg 04/26/21 08:00 04/27/21 08:37 Metformin Hcl 500 Mg Tablet PO 500 mg BREAKFAST LOIS Administration Multivitamins/Minerals 1 tablet 04/26/21 08:00 04/27/21 08:37 Multivitamins,Ther W-Minerals Tablet PO 1 tablet BREAKFAST LOIS Administration Oxycodone HCl 5 - 10 mg 04/26/21 07:22 04/27/21 08:39 Oxycodone 5 Mg Tablet PO 10 mg Q4H PRN PRN Administration Pain Score 6-10 Pyridoxine HCl 100 mg 04/26/21 06:00 04/27/21 05:51 Pyridoxine Hcl 100 Mg Tablet PO 100 mg DAILY LOIS Administration Rivaroxaban 10 mg 04/26/21 08:00 04/27/21 08:37 Rivaroxaban 10 Mg Tablet PO 10 mg 0800 LOIS Administration Senna/Docusate Sodium 2 tablet 04/25/21 17:02 04/27/21 08:37 Senna/Docusate Sodium 1 Tablet PO 2 tablet BID PRN PRN Administration constipation Tamsulosin HCl 0.8 mg 04/25/21 22:00 04/26/21 21:20 Tamsulosin Hcl 0.4 Mg Capsule PO 0.8 mg QHS LOIS Administration Tuberculin PPD 0.1 ml 05/03/21 10:00 Tuberculin,Purif.Prot.Deriv. 50 Tu/Ml Vial ID 05/03/21 10:01 X1 ONE Problem List (Last Updated 04/26/21 @ 08:[address] Laurence Schultz, DO) Obesity due to excess calories (Acute) Unstable gait (Acute) Status post total left knee replacement (Acute) Physical debility (Acute) Gout (Acute) BPH (benign prostatic hyperplasia) (Acute) Presbycusis (Acute) Hyperlipidemia (Acute) Diabetes mellitus, type 2 (Acute) Acute postoperative anemia due to expected blood loss (Acute) Acquired solitary kidney (Acute) Chronic renal failure, stage 3a (Acute) Hyponatremia (Acute) Other acute postprocedural pain (Acute) Osteoarthritis of left knee (Acute) Vital Signs Temp Pulse Resp BP Pulse Ox 97.6 F L 82 18 117/53 L 94 04/27/21 13:54 04/27/21 13:54 04/27/21 13:54 04/27/21 13:54 04/27/21 13:54 Oxygen Delivery Method Room Air Weight: 116.658 kg Body Mass Index (BMI) 37.4 Sodium 130 mmol/L (136-145) L 04/26/21 05:19 Potassium 4.3 mmol/L (3.5-5.1) 04/26/21 05:19 Chloride 100 mmol/L (98-107) 04/26/21 05:19 Carbon Dioxide 22.0 mmol/L (21.0-32.0) 04/26/21 05:19 Anion Gap 8 (5-15) 04/26/21 05:19 BUN 23 mg/dL (7-18) H 04/26/21 05:19 Creatinine 1.41 mg/dL (0.70-1.30) H 04/26/21 05:19 Est GFR (MDRD) Af Amer 62 mL/min (>60) 04/26/21 05:19 Est GFR (MDRD) Non-Af 51 mL/min (>60) L 04/26/21 05:19 BUN/Creatinine Ratio 16.3 RATIO (10-20) 04/26/21 05:19 Glucose 167 mg/dL (74-106) H 04/26/21 05:19 Assessment/Plan: 1. Pain: Tylenol 1000mg PO Q8h, Oxycodone 5-10mg PO Q4h PRN Pain 6-10. Please continue to monitor for increased/decreased S/S pain, PRN medication usage. 2 . HTN/HLD: Zetia 10mg PO Daily, Lisinopril 10mg PO daily. Please continue to monitor BP, lipid panel annually or sooner if clinically indicated. 3. Gout: Allopurinol 200mg PO Daily. Please continue to monitor for medication effectiveness, renal function. 4. BPH: Flomax 0.8mg PO QHS. Please continue to monitor for improvement in BPH symptoms. 5. DM2: Metformin 500mg PO DailyCM. Please continue to monitor BG, A1C, S/S hypoglycemia. 6. DVT Prophylaxis: Xarelto 10mg PO Daily. Please continue to monitor for S/S bleeding/bruising, as well as S/S blood clot formation. Make sure patient avoids grapefruit juice while on medication due to food-drug interaction between the two. 7. General Wellness: Cholecalciferol 25mcg PO Daily, MVI 1 tab PO daily, Pyridox ine 100mg PO Daily. Please continue to monitor. 8. Allergies: Claritin 10mg PO Daily. Please continue to monitor for medication effectiveness Psychotropic Medications: None Unnecessary Medications: None Bowel Regimen: Senna/Docusate 2 tab PO BID PRN. Please continue to monitor for increased/decreased constipation and/or diarrhea. Date of Note:: 04/27/21
[2021-04-27 16:05] LABS: Bedside Glucose 189 mg/dL (70-110)
[2021-04-27] MEDS: Tamsulosin HCl 0.4 MG Capsule 0.8 MG PO (21:16)
[2021-04-27] MEDS: Lisinopril 10 MG Tablet PO (21:19)
[2021-04-27 21:20] VITALS: BP 138/53; PULSE 78
[2021-04-27 22:20] LABS: Bedside Glucose 207 mg/dL (70-110)
[2021-04-28] MEDS: oxyCODONE 5 MG Tablet PO (01:30)
[2021-04-28] MEDS: Loratadine 10 MG Tablet PO (06:06)
[2021-04-28] MEDS: Ezetimibe 10 MG Tablet PO (06:06)
[2021-04-28] MEDS: Pyridoxine HCl 100 MG Tablet PO (06:06)
[2021-04-28] MEDS: Cholecalciferol (VIT D3) 25 MCG TABLET (1,000 UNITS) PO (06:06)
[2021-04-28] MEDS: Acetaminophen 500 MG Tablet 1000 MG PO ×3 (06:07→22:42)
[2021-04-28] MEDS: Senna/Docusate Sodium 1 Tablet 2 TABLET PO ×2 (06:15→16:42)
[2021-04-28 06:35] LABS: Bedside Glucose 132 mg/dL (70-110)
[2021-04-28] MEDS: Multivitamins,Ther W-Minerals Tablet 1 TABLET PO (08:31)
[2021-04-28] MEDS: metFORMIN HCl 500 MG Tablet PO (08:31)
[2021-04-28] MEDS: Allopurinol 100 MG Tablet 200 MG PO (08:31)
[2021-04-28] MEDS: Rivaroxaban 10 MG Tablet PO (08:31)
[2021-04-28 10:51] LABS: Bedside Glucose 241 mg/dL (70-110)
[2021-04-28] MEDS: Magnesium Citrate 300 ML PO (11:08)
[2021-04-28 15:33] VITALS: BP 117/56; PULSE 78; RESP 18; TEMP 36.3; O2SAT 98
[2021-04-28 16:10] LABS: Bedside Glucose 220 mg/dL (70-110)
[2021-04-28 21:00] VITALS: PULSE 72; RESP 16; O2SAT 94
[2021-04-28] MEDS: Tamsulosin HCl 0.4 MG Capsule 0.8 MG PO (22:41)
[2021-04-28] MEDS: Lisinopril 10 MG Tablet PO (22:43)
[2021-04-28 22:52] VITALS: BP 142/69; PULSE 75
[2021-04-28 23:21] LABS: Bedside Glucose 168 mg/dL (70-110)
[2021-04-29] MEDS: Loratadine 10 MG Tablet PO (06:14)
[2021-04-29] MEDS: Acetaminophen 500 MG Tablet 1000 MG PO ×3 (06:14→20:56)
[2021-04-29] MEDS: Senna/Docusate Sodium 1 Tablet 2 TABLET PO ×2 (06:14→16:57)
[2021-04-29] MEDS: Cholecalciferol (VIT D3) 25 MCG TABLET (1,000 UNITS) PO (06:15)
[2021-04-29] MEDS: Ezetimibe 10 MG Tablet PO (06:15)
[2021-04-29] MEDS: Polyethylene Glycol 3350 17 GM PACKET PO (06:15)
[2021-04-29] MEDS: Pyridoxine HCl 100 MG Tablet PO (06:16)
[2021-04-29 06:26] LABS: Bedside Glucose 136 mg/dL (70-110)
[2021-04-29] MEDS: Allopurinol 100 MG Tablet 200 MG PO (08:03)
[2021-04-29] MEDS: Rivaroxaban 10 MG Tablet PO (08:03)
[2021-04-29] MEDS: metFORMIN HCl 500 MG Tablet PO (08:03)
[2021-04-29] MEDS: Multivitamins,Ther W-Minerals Tablet 1 TABLET PO (08:03)
[2021-04-29 11:06] LABS: Bedside Glucose 210 mg/dL (70-110)
[2021-04-29] MEDS: oxyCODONE 5 MG Tablet PO (14:03)
[2021-04-29 15:57] LABS: Bedside Glucose 118 mg/dL (70-110)
[2021-04-29 16:00] VITALS: BP 134/67; PULSE 68; RESP 17; TEMP 36.7; O2SAT 96
[2021-04-29] MEDS: Tamsulosin HCl 0.4 MG Capsule 0.8 MG PO (20:56)
[2021-04-29] MEDS: Lisinopril 10 MG Tablet PO (20:56)
[2021-04-29 22:36] LABS: Bedside Glucose 233 mg/dL (70-110)
[2021-04-30] MEDS: Loratadine 10 MG Tablet PO (05:23)
[2021-04-30] MEDS: Polyethylene Glycol 3350 17 GM PACKET PO (05:23)
[2021-04-30] MEDS: Acetaminophen 500 MG Tablet 1000 MG PO ×3 (05:23→21:07)
[2021-04-30] MEDS: Pyridoxine HCl 100 MG Tablet PO (05:24)
[2021-04-30] MEDS: Cholecalciferol (VIT D3) 25 MCG TABLET (1,000 UNITS) PO (05:24)
[2021-04-30] MEDS: Ezetimibe 10 MG Tablet PO (05:24)
[2021-04-30] MEDS: Senna/Docusate Sodium 1 Tablet 2 TABLET PO ×2 (05:24→16:49)
[2021-04-30 06:36] LABS: Bedside Glucose 132 mg/dL (70-110)
[2021-04-30] MEDS: Multivitamins,Ther W-Minerals Tablet 1 TABLET PO (08:44)
[2021-04-30] MEDS: Allopurinol 100 MG Tablet 200 MG PO (08:44)
[2021-04-30] MEDS: metFORMIN HCl 500 MG Tablet PO (08:44)
[2021-04-30] MEDS: Rivaroxaban 10 MG Tablet PO (08:44)
[2021-04-30 11:06] LABS: Bedside Glucose 167 mg/dL (70-110)
--- NOTE | 2021-04-30 14:38 | NURSING ---
ASSISTED R' TO WALK IN HALLWAY. GAIT BELT APPLIED. R' WALKED TO NURSES STATION, BRIEFLY RESTED IN WHEELCHAIR. WALKED BACK TO ROOM. NOW RESTING IN R/C WITH LEGS ELEVATED. POLAR CARE IN PLACE TO RIGHT KNEE. RATES PAIN 11/16. DENIES FURTHER NEEDS. RECENTLY ASSISTED WITH URINAL.
[2021-04-30 16:00] VITALS: BP 129/68; PULSE 72; RESP 15; TEMP 36.3; O2SAT 96
[2021-04-30 16:06] LABS: Bedside Glucose 178 mg/dL (70-110)
[2021-04-30] MEDS: Lisinopril 10 MG Tablet PO (21:07)
[2021-04-30] MEDS: Tamsulosin HCl 0.4 MG Capsule 0.8 MG PO (21:08)
[2021-04-30 21:12] VITALS: BP 135/72; PULSE 79; O2SAT 97
[2021-04-30 21:17] LABS: Bedside Glucose 173 mg/dL (70-110)
[2021-05-01 05:41] VITALS: BP 137/68; PULSE 80; RESP 16; TEMP 36.3; O2SAT 95
[2021-05-01] MEDS: Acetaminophen 500 MG Tablet 1000 MG PO ×3 (05:43→22:47)
[2021-05-01] MEDS: Polyethylene Glycol 3350 17 GM PACKET PO (05:43)
[2021-05-01] MEDS: Pyridoxine HCl 100 MG Tablet PO (05:44)
[2021-05-01] MEDS: Cholecalciferol (VIT D3) 25 MCG TABLET (1,000 UNITS) PO (05:44)
[2021-05-01] MEDS: Ezetimibe 10 MG Tablet PO (05:44)
[2021-05-01] MEDS: Loratadine 10 MG Tablet PO (05:44)
[2021-05-01] MEDS: Senna/Docusate Sodium 1 Tablet 2 TABLET PO ×2 (05:48→18:14)
[2021-05-01 06:20] LABS: Bedside Glucose 155 mg/dL (70-110)
--- NOTE | 2021-05-01 07:08 | NURSING ---
Bilateral KHT applied. Positioned in chair for comfort. Polarcare reapplied to left knee. Folded bath blanket placed under left calf and BLE elevated in recliner.
[2021-05-01] MEDS: Allopurinol 100 MG Tablet 200 MG PO (09:34)
[2021-05-01] MEDS: Rivaroxaban 10 MG Tablet PO (09:34)
[2021-05-01] MEDS: Multivitamins,Ther W-Minerals Tablet 1 TABLET PO (09:34)
[2021-05-01] MEDS: metFORMIN HCl 500 MG Tablet PO (09:35)
[2021-05-01 10:50] LABS: Bedside Glucose 175 mg/dL (70-110)
[2021-05-01 15:12] VITALS: BP 146/69; PULSE 75; RESP 16; TEMP 36.2; O2SAT 93
--- NOTE | 2021-05-01 15:36 | CASEMGMT ---
Social Work PT and requesting for pt to be discharged on Saturday05/03/21. SW updated team and notified pt that he would benefit from continued therapy, however pt and feel can care for pt at home. Pt would like outpt PT at [facility] and has needed DME. Phone call to [facility] and appointment made for 05/04 at 2:30. Pt updated. Discharge Date: 05/03/21 Discharge Disposition: Home with , outpatient PT HENRY Atkinson
--- NOTE | 2021-05-01 16:55 | CHAPLAIN ---
Type of Pastoral Visit ___ Initial Visit _x__ Follow-up Visit ___ On-call Visit ___ General Patient Visit ___ Spiritual Assessment ___ Family Conference ___ Bereavement ___ Rapid Response ___ Code Blue ___ Other (describe below) Pastoral Care Referral From _x__ Patient ___ Family ___ Nurse ___ Physician ___ Glass Loading Equipment Tender ___ Linseed Oil Order Filler ___ Other (describe below) Sacrament/Intervention _x__ Active listening ___ Anointing ___ Nondenominational ___ Bereavement ___ Communion ___ Ariana exploration ___ _x__ Life review _x__ Prayer ___ Reconciliation ___ Sacrament of Sick ___ Supportive presence ___ Wedding ___ Other (describe below) Pastoral Comments conversation about life; prayer welcomed; spouse is with patient
[2021-05-01 16:56] LABS: Bedside Glucose 135 mg/dL (70-110)
[2021-05-01] MEDS: oxyCODONE 5 MG Tablet PO (18:14)
--- NOTE | 2021-05-01 19:18 | DS.PCM_ITS ---
Providers Date of Admission: 04/25/21 Primary Care Physician: Dr. Isai Pedersen MD Reason For Visit: LEFT TOTAL KNEE Diagnosis Discharge Diagnosis (1) Physical debility: Status: Acute Code(s): R53.81 - Other malaise (2) Osteoarthritis of left knee: Status: Acute Code(s): M17.12 - Unilateral primary osteoarthritis, left knee Qualifiers: Osteoarthritis type: unspecified Qualified Code(s): M17.12 - Unilateral primary osteoarthritis, left knee (3) Status post total left knee replacement: Status: Acute Code(s): Z96.652 - Presence of left artificial knee joint (4) Other acute postprocedural pain: Status: Acute Code(s): G89.18 - Other acute postprocedural pain (5) Hyponatremia: Status: Acute Code(s): E87.1 - Hypo-osmolality and hyponatremia (6) Acute postoperative anemia due to expected blood loss: Status: Acute Code(s): D62 - Acute posthemorrhagic anemia (7) Diabetes mellitus, type 2: Status: Acute Code(s): E11.9 - Type 2 diabetes mellitus without complications Qualifiers: Diabetes mellitus correction insulin use: without longwall headgate operator use Diabetes mellitus complication status: with other specified complication Qualified Code(s): E11.69 - Type 2 diabetes mellitus with other specified complication (8) Hyperlipidemia: Status: Acute Code(s): E78.5 - Hyperlipidemia, unspecified (9) Acquired solitary kidney: Status: Acute Code(s): Z90.5 - Acquired absence of kidney (10) Chronic renal failure, stage 3a: Status: Acute Code(s): N18.31 - Chronic kidney disease, stage 3a (11) Presbycusis: Status: Acute Code(s): H91.10 - Presbycusis, unspecified ear Qualifiers: Laterality: bilateral Qualified Code(s): H91.13 - Presbycusis, bilateral (12) BPH (benign prostatic hyperplasia): Status: Acute Code(s): N40.0 - Benign prostatic hyperplasia without lower urinary tract symptoms Qualifiers: Lower urinary tract symptom presence: symptoms present Lower urinary tract symptom detail: nocturia Qualified Code(s): N40.1 - Benign prostatic hyperplasia with lower urinary tract symptoms; R35.1 - Nocturia (13) Gout: Status: Acute Code(s): M10.9 - Gout, unspecified Qualifiers: Gout site: unspecified site Gout etiology: unspecified cause (14) Unstable gait: Status: Acute Code(s): R26.81 - Unsteadiness on feet (15) Obesity due to excess calories: Status: Acute Code(s): E66.09 - Other obesity due to excess calories Medications at Discharge Home Medications Centrum Silver 1 ea PO DAILY 03/18/15 allopurinol 200 mg PO DAILYCM 03/18/15 ezetimibe 10 mg PO DAILY 03/18/15 pyridoxine (vitamin B6) 100 mg PO DAILY 03/18/15 tamsulosin 0.8 mg PO QHS 03/18/15 cholecalciferol (vitamin D3) 1,000 unit PO DAILY 08/25/20 lisinopril 10 mg PO QHS 04/10/21 loratadine [Claritin] 10 mg PO DAILY 04/10/21 acetaminophen 1,000 mg PO Q8 04/25/21 metformin 500 mg PO DAILY 04/25/21 sennosides-docusate sodium [Stool Softener-Stimulant Laxat] 2 tab PO BID PRN #30 tab 04/25/21 Xarelto 10 mg PO 0800 26 Days #26 tab 05/01/21 oxycodone 5 mg PO Q4H PRN 3 Days #20 cap 05/01/21 polyethylene glycol 3350 17 g PO DAILY 30 Days #30 ea 05/01/21 Hospital Course Operations total knee replacement (Left.) Procedures None Summary of Care Provided Minutes Spent on Discharge: 35 Hospital Course: 81 year old male with below past medical history underwent left total knee replacement 04/24/[address] Chu Fink, admitted to TCU with debility, here for rehabilitation, strengthening, prior to discharge home with . Discharge home with 05/03/2021, outpatient PT. Physical Exam Const alert and oriented x3 General Appearance: cooperative HEENT normocephalic Eyes PERRL and EOMs intact bilaterally Neck supple, no JVD and no carotid bruits Resp normal respiratory effort, normal air movement and clear to auscultation bilaterally Cardio regular rate and regular rhythm GI normal to inspection, nondistended, normoactive bowel sounds, non-tender and non-distended Extremity normal capillary refill General Extremity: Negative for edema Skin no rashes or lesions noted General Skin Exam: no breakdown Psych affect normal Appearance: appropriate Weight / BMI Weight Weight: 116.658 kg Body Mass Index (BMI) 37.4 ABG / Lab / Microbiology Data Result Diagrams: 04/26/21 05:19 04/26/21 05:19 Laboratory: Laboratory Results - last 24 hr 04/30/21 21:01: POC Glucose 173 H 05/01/21 06:11: POC Glucose 155 H 05/01/21 10:44: POC Glucose 175 H 05/01/21 16:40: POC Glucose 135 H D/C Instructions Please Follow Up With: Chu Fink MD Meaningful Use Info Meaningful Use Diagnoses (Choose all that apply): None applicable Discharge Plan Admission Admit Date/Time: 04/25/21 16:28 Primary Reason for Your Visit: Debility. Attending Provider: Laurence Schultz Primary Care Provider: Isai Pedersen Instructions Additional Instructions / Restrictions: Outpatient PT at [facility] Discharge Orders/Prescriptions Prescriptions: New polyethylene glycol 3350 17 gram Powder In Packet 17 g PO DAILY 30 Days Qty: 30 RF: 0 Continued allopurinol 100 MG tablet 200 mg PO DAILYCM RF: 0 tamsulosin 0.4 MG capsule 0.8 mg PO QHS RF: 0 pyridoxine (vitamin B6) 100 MG tablet 100 mg PO DAILY RF: 0 ezetimibe 10 MG tablet 10 mg PO DAILY RF: 0 Centrum Silver 1 EACH tablet 1 ea PO DAILY RF: 0 cholecalciferol (vitamin D3) 1,000 UNIT tablet 1,000 unit PO DAILY RF: 0 lisinopril 10 mg Tablet 10 mg PO QHS RF: 0 loratadine [Claritin] 10 mg Tablet 10 mg PO DAILY RF: 0 sennosides-docusate sodium [Stool Softener-Stimulant Laxat] 8.6-50 mg Tablet 2 tab PO BID PRN (Reason: constipation) Qty: 30 RF: 0 metformin 500 mg tablet 500 mg PO DAILY RF: 0 acetaminophen 500 mg tablet 1,000 mg PO Q8 RF: 0 oxycodone 5 mg capsule 5 mg PO Q4H PRN (Reason: pain (scale score 7-10)) 3 Days Qty: 20 RF: 0 Xarelto 10 mg tablet 10 mg PO 0800 26 Days Qty: 26 RF: 0 Referrals / Follow Up: Isai Pedersen MD [Primary Care Provider] - Disposition Disposition (needs filled in before D/C Order can be placed): Home, Self Care
[2021-05-01 21:20] LABS: Bedside Glucose 202 mg/dL (70-110)
[2021-05-01 22:30] VITALS: PULSE 64; RESP 16; O2SAT 94
[2021-05-01] MEDS: Tamsulosin HCl 0.4 MG Capsule 0.8 MG PO (22:48)
[2021-05-01] MEDS: Lisinopril 10 MG Tablet PO (22:48)
[2021-05-02] MEDS: Polyethylene Glycol 3350 17 GM PACKET PO (05:27)
[2021-05-02] MEDS: Cholecalciferol (VIT D3) 25 MCG TABLET (1,000 UNITS) PO (05:28)
[2021-05-02] MEDS: Ezetimibe 10 MG Tablet PO (05:28)
[2021-05-02] MEDS: Loratadine 10 MG Tablet PO (05:28)
[2021-05-02] MEDS: Pyridoxine HCl 100 MG Tablet PO (05:28)
[2021-05-02] MEDS: Acetaminophen 500 MG Tablet 1000 MG PO ×3 (05:28→21:37)
[2021-05-02] MEDS: Senna/Docusate Sodium 1 Tablet 2 TABLET PO ×2 (05:32→17:12)
[2021-05-02] MEDS: Rivaroxaban 10 MG Tablet PO (08:36)
[2021-05-02] MEDS: Multivitamins,Ther W-Minerals Tablet 1 TABLET PO (08:36)
[2021-05-02] MEDS: metFORMIN HCl 500 MG Tablet PO (08:37)
[2021-05-02] MEDS: Allopurinol 100 MG Tablet 200 MG PO (08:37)
[2021-05-02 10:56] LABS: Bedside Glucose 213 mg/dL (70-110)
[2021-05-02 11:26] LABS: Bedside Glucose 149 mg/dL (70-110)
[2021-05-02 13:23] VITALS: BP 125/63; PULSE 91; RESP 17; TEMP 36.3; O2SAT 94
[2021-05-02] MEDS: oxyCODONE 5 MG Tablet PO (14:22)
[2021-05-02 16:21] LABS: Bedside Glucose 222 mg/dL (70-110)
[2021-05-02 21:31] LABS: Bedside Glucose 154 mg/dL (70-110)
[2021-05-02] MEDS: Tamsulosin HCl 0.4 MG Capsule 0.8 MG PO (21:37)
[2021-05-02] MEDS: Lisinopril 10 MG Tablet PO (21:39)
[2021-05-02 21:42] VITALS: BP 130/65; PULSE 78
[2021-05-03] MEDS: Senna/Docusate Sodium 1 Tablet 2 TABLET PO (05:29)
[2021-05-03] MEDS: Loratadine 10 MG Tablet PO (05:30)
[2021-05-03] MEDS: Ezetimibe 10 MG Tablet PO (05:30)
[2021-05-03] MEDS: Cholecalciferol (VIT D3) 25 MCG TABLET (1,000 UNITS) PO (05:30)
[2021-05-03] MEDS: Pyridoxine HCl 100 MG Tablet PO (05:30)
[2021-05-03] MEDS: Polyethylene Glycol 3350 17 GM PACKET PO (05:30)
[2021-05-03] MEDS: Acetaminophen 500 MG Tablet 1000 MG PO ×2 (05:30→13:15)
[2021-05-03 05:50] LABS: Absolute Lymphocyte Count 5.04 X10^3/uL (0.83-4.51); Basophil# 0.09 X10^3/uL; Basophil% 0.6 % (0-1); Eosinophil# 0.81 X10^3/uL; Eosinophils% 5.8 % (0-5); Hematocrit 35.3 % (40-54); Hemoglobin 11.5 g/dL (13.0-16.5); Lymphocyte # 5.04 X10^3/ul (0.83-4.51); Lymphocyte % 36.3 % (19-41); Mean Corp Hgb Conc 32.6 g/dL (32-36); Mean Corpuscular Hgb 31.7 pg (27.0-32.0); Mean Corpuscular Volume 97.2 fL (80-94); Mean Platelet Vol. 8.8 fl (6.2-12.0); Monocyte# 0.89 X10^3/uL; Monocyte% 6.4 % (0-10); NRBC Flagged by Analyzer 0 % (0-5); Neutrophil # 6.97 X10^3/uL (2.7-7.7); Neutrophil % 50.3 % (47-70); POSITIVE DIFFERENTIAL YES; Platelet Count 333 K/mm3 (150-450); RBC Distribution Width CV 14.6 % (11.6-14.6); RBC Distribution Width SD 52.9 fl (35.1-43.9); Red Blood Count 3.63 M/mm3 (4.6-6.2); White Blood Count 13.9 K/mm3 (4.4-11.0)
[2021-05-03 06:11] LABS: Differential Indicated SCAN CRITERIA MET
[2021-05-03 06:25] LABS: Bedside Glucose 134 mg/dL (70-110)
[2021-05-03 06:26] LABS: Differential Comment SCANNED
[2021-05-03 06:30] LABS: Anion Gap 6 (5-15); BUN 53 mg/dL (7-18); BUN/Creat Ratio 29.8 RATIO (10-20); Calcium,Total 8.9 mg/dL (8.5-10.1); Chloride 104 mmol/L (98-107); Creatinine, Serum 1.78 mg/dL (0.70-1.30); EST Glomerular Filtration Rate 39 mL/min (>60); Est Glom Filt Rate - Afr Amer 48 mL/min (>60); Estimated Creatinine Clearance 32.02 ml/min; Glucose 127 mg/dL (74-106); Potassium 5.4 mmol/L (3.5-5.1); Sodium Level 132 mmol/L (136-145)
[2021-05-03] MEDS: Rivaroxaban 10 MG Tablet PO (08:31)
[2021-05-03] MEDS: metFORMIN HCl 500 MG Tablet PO (08:31)
[2021-05-03] MEDS: Allopurinol 100 MG Tablet 200 MG PO (08:31)
[2021-05-03] MEDS: Multivitamins,Ther W-Minerals Tablet 1 TABLET PO (08:32)
[2021-05-03] MEDS: Sodium Polystyrene Sulfonate 15 GM/60 ML UDC 30 GM PO (10:06)
--- NOTE | 2021-05-03 10:08 | NURSING ---
Spoke to and resident about elevated K+ level and importance of taking Kayexelate to bring it down. encouraging resident to take Kayexelate. Will monitor for stools and recheck at a later time today. Updated on this. They are agreeable.
[2021-05-03 11:11] LABS: Bedside Glucose 200 mg/dL (70-110)
--- NOTE | 2021-05-03 13:25 | NURSING ---
Per ENOCH Armando to recheck K+ after results from Kayexelate as ordered by Dr Thompson. Resident has had some stools since medication given. Orders entered to recheck at 1500 today. resident aware of this.
--- NOTE | 2021-05-03 16:16 | NURSING ---
Addendum entered by Cassandra Tang 05/03/21 16:25: Orders to send resident home. Instructions given. Original Note: Dr Thompson paged with K+ result of 5.0. Awaiting call back to see if resident is able to be discharged. Resident updated.
[2021-05-03 16:26] VITALS: BP 133/74; PULSE 69; RESP 16; TEMP 36.3; O2SAT 95
--- NOTE | 2021-05-05 13:24 | MDS.RN ---
Information for the mds was obtained from review of the clinical record, interview of resident, staff, and direct observation of resident's care.
== END 2021-05-03 16:40 | disposition home or self-care (01) | DRG 561 ==
PROVIDERS: Family Medicine Geriatric Medicine; Admitting Provider Internal Medicine; PCP Family Medicine; Visit Provider Internal Medicine
DX: Z47.1 Aftercare following joint replacement surgery (principal); Z96.652 Presence of left artificial knee joint; N18.31 Chronic kidney disease, stage 3a; E11.22 Type 2 diabetes mellitus with diabetic chronic kidney disease; I12.9 Hypertensive chronic kidney disease with stage 1 through stage 4 chronic kidney disease, or unspecified chronic kidney disease; E78.5 Hyperlipidemia, unspecified; E55.9 Vitamin D deficiency, unspecified; E66.9 Obesity, unspecified; M10.9 Gout, unspecified; N40.1 Benign prostatic hyperplasia with lower urinary tract symptoms; R35.1 Nocturia; M17.12 Unilateral primary osteoarthritis, left knee; Z79.899 Other long term (current) drug therapy; Z79.84 Long term (current) use of oral hypoglycemic drugs; Z79.01 Long term (current) use of anticoagulants; Z68.38 Body mass index [BMI] 38.0-38.9, adult; Z90.5 Acquired absence of kidney
CPT/HCPCS: 36415; 80048; 82962; 84132; 85025; 97110; 97116; 97162; 97166; 97530; 97535; 97802

== ENCOUNTER → 2022-11-12 | Outpatient (CLI) | payer MEDICARE, OTHER, SELFPAY ==
--- NOTE | 2022-11-12 | ASPOS_PTH ---
PATIENT: KIYA NUNEZ LOC: LAB U#:[id number] AGE/SX: 82/M ROOM: RE11/12/[address]: ZAYNAB Nolan : 1940 BED: DIS: 11/12/2022 SPEC #: [id number] RECD: 11/12/22 10:31 STATUS: VÍCTOR REAysha #: [id number] JENNIE: 11/12/22 00:[address]: Jared Castle DEPT: CYTOLOGY RECD BY: Ana Paula Galeana ENTERED: 11/12/22 13:56 SP TYPE: ASP HERE OTHR DR: Dr. Isai Pedersen MD Tissues: Parotid gland, NOS Procedures: Surgery Specimen Level IV Cytology Other Fine Needle Asp on Site Comments: @ Ordering doctor for SUIV edited from TETO to @ by KEITH at 11/12/22 1401 @ Ordering doctor for CYOTHER edited from TETO to DR.KMATHU Masters by KEITH at 11/12/22 1401 @ Ordering doctor for FNAOS edited from TETO to DR.KMATHU Masters by KEITH at 11/12/22 1401 @ Submitting doctor edited from TETO to DR.KMATHU Masters by KEITH at 11/12/22 1401 HEADER OPERATION: Fine needle aspiration, left parotid mass PRE-OP DIAGNOSIS: Left parotid mass TISSUE SUBMITTED: Left parotid mass DIAGNOSIS CYTOLOGY Fine needle aspiration, left parotid mass (smears and cell block): Negative for malignant cells. Consistent with contents of benign cyst. See cytology study and comment. AM:ania 11/13/2022 COMMENT The specimen is evaluated at the time of FNA by Dr. Crenshaw. Immediate Evaluation = Macrophages consistent with benign cyst contents. The findings are consistent with benign salivary gland cyst. The lesion near resolved after aspiration of 3.0?ml of clear to blackwell fluid. Clinical correlation is suggested. CYTOLOGY STUDY Slides are reviewed. The specimen contains blood, scant macrophages and rare benign salivary gland tissue. CYTOLOGY GROSS Received is 3.0 ml of clear to blackwell fluid labeled with the patient's name, and designated left parotid mass. Six imprints and three paps are made from the submitted fluid and the rest is added to CytoLyt for cell block preparation. Submitted for cytology study. / AAMIR:ania 11/12/2022 TC:5 CPT: 38658, 61615, 93472, 70156
== END | disposition home or self-care (01) ==
LOC: LAB 09:21
PROVIDERS: PCP Family Medicine; Referring Provider Nurse Practitioner Family; Visit Provider Nurse Practitioner Family
DX: K11.3 Abscess of salivary gland (principal)
CPT/HCPCS: 10021; 88161; 88305

== ENCOUNTER 2024-04-11 09:26 | Inpatient (IN) | payer MEDICARE, OTHER, SELFPAY ==
[2024-04-11 09:28] VITALS: BP 119/61; PULSE 86; RESP 18; TEMP 35.5; O2SAT 93; BMI 39.8
--- NOTE | 2024-04-11 09:58 | RAD_ITS ---
EXAM: XR CHEST, 1 VIEW CLINICAL INDICATION: cough, sob TECHNIQUE: Frontal view of the chest. COMPARISON: XR Chest dated 04/24/2021 FINDINGS: LUNGS AND PLEURAL SPACES: Bibasilar pulmonary opacities suggestive of atelectasis. Shallow inspiration. HEART: Normal heart size. MEDIASTINUM: No mediastinal or hilar mass. BONES/JOINTS: Reverse right shoulder prosthesis again seen. TUBES, LINES AND DEVICES: Interval placement of TAVR. Right IJ infusion catheter tip extends into the right atrium. RAD/Chest 1 View (Portable) IMPRESSION: Bibasilar pulmonary densities suggestive of atelectasis. Underlying pneumonia to BE excluded. Electronically Signed: Getachew Gurrola MD at 11:07 EDT ,
--- NOTE | 2024-04-11 09:58 | EKG12_ITS ---
Test Reason : GEN ILLNESS Blood Pressure : / mmHG Vent. Rate : 082 BPM Atrial Rate : 082 BPM P-R Int : 232 ms QRS Dur : 160 ms QT Int : 408 ms P-R-T Axes : 049 -56 061 degrees QTc Int : 476 ms Sinus rhythm with 1st degree A-V block Right bundle branch block Left anterior fascicular block Bifascicular block Left ventricular hypertrophy with repolarization abnormality ( R in aVL ) Abnormal ECG Confirmed by Aaron Jacques ([id number]), movie editor TAI DAVILA ([id number]) on 04/13/2024 2:16:56 PM Referred By: Confirmed By:Aaron Jacques
--- NOTE | 2024-04-11 10:00 | EX.ED.DYSGE1 ---
HPI History of Present Illness Chief Complaint: General Illness Narrative Narrative: 84-year-old male past medical history of renal cell carcinoma, on immunotherapy, skipped his last dosing on 02 April secondary to illness. He states this morning when he got up, he did not feel well. He sat down to eat breakfast but felt very lightheaded and near syncopal. He describes a generalized weakness as well. She had a cough for the last few days productive of greenish sputum. states that his renal cell carcinoma stage IIIb, and fluctuating. He states he feels a little bit better than when he sat down for breakfast. No fevers or chills, no other symptoms except for constipation. Additionally, they state that he had recent scans, there was a spot on his liver that they had found as well that could possibly be metastasis. He sees Dr. Feliciano at the [facility] as his oncologist. He presents today mainly because of the lightheadedness and the generalized weakness. [facility] Medical History Obesity due to excess calories Loss of hearing Wears glasses Wears dentures Cancer Diabetes Arthritis Prostate disease High cholesterol Back pain Dietary restriction History of diverticulitis Heartburn Non-smoker Shortness of breath on exertion Leg cramps History of edema History of pain when walking History of stress test Cardiology follow-up encounter Hypertension BRBPR (bright red blood per rectum) GI bleed Home Medications ?Medication ?Instructions ?Recorded ?Last Taken ?Type allopurinol 100 mg tablet 200 mg PO DAILYCM Gout 03/18/15 Unknown History ezetimibe 10 mg tablet 10 mg PO DAILY Cholesterol 03/18/15 Unknown History gtwcdbim-vvz-yuyne acid 0.4 1 ea PO DAILY Supplement 03/18/15 Unknown History mg-lycopene 300 mcg-lutein 250 mcg tablet (Centrum Silver) pyridoxine (vitamin B6) 100 mg 100 mg PO DAILY Supplement 03/18/15 Unknown History tablet tamsulosin 0.4 mg capsule 0.8 mg PO QHS Urinary Retention 03/18/15 Unknown History cholecalciferol (vitamin D3) 25 1,000 unit PO DAILY Supplement 08/25/20 Unknown History mcg (1,000 unit) tablet lisinopril 10 mg tablet 10 mg PO QHS BP 04/10/21 Unknown History loratadine 10 mg tablet (Claritin) 10 mg PO DAILY Allergies 04/10/21 Unknown History acetaminophen 500 mg tablet 1,000 mg PO Q8 Pain 04/25/21 Unknown History metformin 500 mg tablet 500 mg PO DAILY Diabetes 04/25/21 Unknown History sennosides 8.6 mg-docusate sodium 2 tab PO BID PRN constipation #30 04/25/21 Unknown Rx 50 mg tablet (Stool tabs Softener-Stimulant Laxative) oxycodone 5 mg capsule 5 mg PO Q4H PRN pain (scale score 05/01/21 Unknown Rx 7-10) 3 days #20 caps polyethylene glycol 3350 17 gram 17 g PO DAILY 30 days #30 ea 05/01/21 Unknown Rx oral powder packet rivaroxaban 10 mg tablet (Xarelto) 10 mg PO 0800 Blood Thinner 26 05/01/21 Unknown Rx days #26 tabs Allergy/AdvReac Type Severity Reaction Status Date / Time aspirin Allergy Rash Verified 04/10/21 09:10 atorvastatin calcium (From Allergy Other Verified 04/10/21 09:10 Lipitor) finasteride Allergy Rash Verified 04/10/21 09:10 ibuprofen (From Motrin) Allergy Swelling Verified 04/10/21 09:10 simvastatin (From Zocor) Allergy Other Verified 04/10/21 09:10 sulfamethoxazole (From Allergy Unknown Verified 04/10/21 09:10 Bactrim) trimethoprim (From Bactrim) Allergy Unknown Verified 04/10/21 09:10 Surgical History Status post left knee replacement Hx of colonoscopy Hx of tonsillectomy History of nephrectomy, right History of surgical removal of skin lesion Hx of bursectomy Hx of total shoulder replacement Social History Smoking Status: Never smoker ROS ROS ED ROS Narrative Constitutional: No fever, no chills. Generalized weakness HEENT: No sore throat. No neck pain. No loss of vision. No rhinorrhea. Cardiovascular: No chest pain. No palpitations. No pedal edema. Respiratory: Positive productive cough, no shortness of breath. Abdominal: No abdominal pain. No nausea. No vomiting. Genitourinary: No dysuria. No hematuria. Musculoskeletal: No myalgias. No arthralgias. Neurologic: No headaches. No dizziness. Positive lightheadedness. Skin: No rash. No change in color. Psychiatric: No depression. No anxiety. EXAM Physical Exam Narrative Exam Narrative: Afebrile. Vital signs noted. HEENT: Normocephalic. Atraumatic. PERRL, EOMI. Neck soft and supple. No point tenderness or step off. Cardiovascular: Regular rate and rhythm. No murmurs, rubs, or gallops appreciated. Respiratory: No tachypnea. Decreased breath sounds right base greater than left. Positive rhonchi and coarse breath sounds left. Gastrointestinal: Abdomen soft, nontender, with normoactive bowel sounds. No rebound or guarding. Neurological: Awake. Alert. Nonfocal, nonlateralizing. Skin: No rash. Normal color. No pallor. Musculoskeletal: No pedal edema. Full range of motion extremities. Const Vital Signs: 04/11/24 09:28 04/11/24 09:43 04/11/24 10:31 Temperature 95.9 F L 97.7 F L Temperature Source Temporal Oral Pulse Rate 86 78 Respiratory Rate 18 18 Respiratory Pattern Normal Blood Pressure 119/61 121/58 H Blood Pressure Mean 80 79 Pulse Ox 93 93 Oxygen Delivery Method Room Air Room Air 04/11/24 11:00 Temperature 97.7 F L Temperature Source Oral Pulse Rate 71 Respiratory Rate 18 Respiratory Pattern Blood Pressure 110/55 L Blood Pressure Mean 73 Pulse Ox 94 Oxygen Delivery Method Room Air MDM [facility] Narrative Medical decision making narrative: Differential diagnosis includes dehydration, pneumonia, urinary tract infection, other electrolyte imbalance. I reviewed his laboratory work and he has normal white count of 10.3, no evidence of neutropenia, hemoglobin stable at 10.9 with platelet count 181. Sodium is low at 128 with potassium normal at 5.1, BUN of 33 and creatinine 2.74. This is above his baseline. I do feel that he is probably dehydrated. He was bolused normal saline. Glucose elevated at 145 with normal anion gap of 7. AST is elevated at 78 which I think is nonspecific, normal alk phos of 111. Urinalysis obtained and reviewed and is negative for infection, I do not feel antibiotics are indicated for this. EKG was obtained and interpreted by myself independently as normal sinus rhythm at [address] changes. No STEMI. No significant change from previous dated April 17, 2021. On my interpretation of his chest x-ray, I he has bibasilar infiltrates versus atelectasis. I reviewed the radiology report which confirms my independent interpretation. Given that his pulse ox is 92 to 93% on room air and he has had history of productive cough of green sputum, I started him on Rocephin and azithromycin. His family states that on Saturday, 5 days ago, they did start him on azithromycin orally. In combination of his hyponatremia, and bilateral pneumonia and generalized weakness, I discussed patient with Dr. Disla for admission to the PCU. Patient is in stable condition. History & Record Review Discussion w/independent historian: Patient and Family Lab Data Attestation: I reviewed the patient's lab results. Labs: Laboratory Results - last 24 hr 04/11/24 04/11/24 10:17 10:21 WBC 10.3 RBC 3.57 L Hgb 10.9 L Hct 33.6 L MCV 94.1 H MCH 30.5 MCHC 32.4 RDW Std Deviation 51.2 H RDW Coeff of Joe 14.8 H Plt Count 181 MPV 9.2 Immature Gran % (Auto) 0.300 Neut % (Auto) 35.5 L Lymph % (Auto) 37.7 Stanton % (Auto) 7.8 Eos % (Auto) 17.8 H Baso % (Auto) 0.9 Absolute Neuts (auto) 3.7 Absolute Lymphs (auto) 3.88 Nucleated RBC % 0 Sodium 128 L Potassium 5.1 Chloride 102 Carbon Dioxide 19.0 L Anion Gap 7 BUN 33 H Creatinine 2.74 H Estim Creat Clear Calc 24.78 Est GFR (MDRD) Af Amer 29 L Est GFR (MDRD) Non-Af 24 L BUN/Creatinine Ratio 12.0 Glucose 145 H Calcium 9.6 Total Bilirubin 0.50 AST 78 H ALT 27 Alkaline Phosphatase 111 Troponin I High Sens 14 Total Protein 7.1 Albumin 2.9 L Globulin 4.2 Albumin/Globulin Ratio 0.7 L Urine Color Yellow Urine Clarity Clear Urine pH 6.0 Ur Specific [place] 1.010 Urine Protein 100 H Urine Glucose (UA) 1000 H Urine Ketones Negative Urine Occult Blood 25 H Urine Nitrite Negative Urine Bilirubin Negative Urine Urobilinogen Normal Ur Leukocyte Esterase Negative Urine RBC 0 SEEN Urine WBC 0 SEEN Ur Squamous Epith Cells 0 SEEN Urine Bacteria 1+ Urine Mucus 0 SEEN Radiography Diagnostic Testing: Clinical Impression(s) from Imaging Studies Chest X-Ray 04/11/24 09:58 IMPRESSION: Bibasilar pulmonary densities suggestive of atelectasis. Underlying pneumonia to BE excluded. Electronically Signed: Getachew Gurrola MD at 11:07 EDT , Management Discussion w/another healthcare provider: Hospitalist Discharge Plan Dx/Rx/DC Orders Clinical Impression: Generalized weakness, Hyponatremia, Lightheadedness, Pneumonia Disposition Disposition: Acute Care Hospital [facility]
[2024-04-11] MEDS: 0.9% Normal Saline (1000mL) 1,000 ML 999 ML IV (10:16)
[2024-04-11 10:25] LABS: Mucous, Urine 0 SEEN /hpf (<or=2+); Red Blood Cells-Urine 0 SEEN /hpf (0-5); Squamous Epithelial Cells - UA 0 SEEN /hpf (0-5); White Blood Cells 0 SEEN /hpf (0-5)
[2024-04-11 10:27] LABS: Absolute Lymphocyte Count 3.88 X10^3/uL (0.83-4.51); Absolute Neutrophil Count 3.7 X10^3/uL (2.0-7.7); Basophil# 0.09 X10^3/uL; Basophil% 0.9 % (0-1); Eosinophil# 1.83 X10^3/uL; Eosinophils% 17.8 % (0-5); Hematocrit 33.6 % (40-54); Hemoglobin 10.9 g/dL (13.0-16.5); Lymphocyte # 3.88 X10^3/ul (0.83-4.51); Lymphocyte % 37.7 % (19-41); Mean Corp Hgb Conc 32.4 g/dL (32-36); Mean Corpuscular Hgb 30.5 pg (27.0-32.0); Mean Corpuscular Volume 94.1 fL (80-94); Mean Platelet Vol. 9.2 fl (6.2-12.0); Monocyte% 7.8 % (0-10); NRBC Flagged by Analyzer 0 % (0-5); Neutrophil # 3.67 X10^3/uL (2.7-7.7); Neutrophil % 35.5 % (47-70); Platelet Count 181 K/mm3 (150-450); RBC Distribution Width CV 14.8 % (11.6-14.6); RBC Distribution Width SD 51.2 fl (35.1-43.9); Red Blood Count 3.57 M/mm3 (4.6-6.2); White Blood Count 10.3 K/mm3 (4.4-11.0)
[2024-04-11 10:31] VITALS: BP 121/58; PULSE 78; RESP 18; TEMP 36.5; O2SAT 93
[2024-04-11 10:31] LABS: Color, Urine Yellow (Yellow); Glucose, Dipstick 1000 mg/dl (Normal); Ketone-Dipstick Negative (Negative); Leukocyte Esterase-Dipstick Negative /ul (Negative); Nitrite-Dipstick Negative (Negative); Occult Blood-Urine 25 /ul (Negative); Protein-Dipstick 100 mg/dl (Negative); Urine Bilirubin Dipstick Negative (Negative); Urine Clarity Clear (Clear); Urine Urobilinogen Normal (Normal)
[2024-04-11 10:42] LABS: ALB/GLOB Ratio 0.7 RATIO (0.9-2.4); AST(SGOT) 78 U/L (15-37); Alanine Aminotransfer ALT/SGPT 27 U/L (16-61); Albumin, Serum 2.9 g/dL (3.2-5.0); Alkaline Phosphatase 111 U/L (45-117); Anion Gap 7 (5-15); BUN 33 mg/dL (7-18); Calcium,Total 9.6 mg/dL (8.5-10.1); Chloride 102 mmol/L (98-107); Creatinine, Serum 2.74 mg/dL (0.70-1.30); EST Glomerular Filtration Rate 24 mL/min (>60); Est Glom Filt Rate - Afr Amer 29 mL/min (>60); Estimated Creatinine Clearance 24.78 ml/min; Globulin 4.2 g/dL (2.2-4.2); Glucose 145 mg/dL (74-106); Potassium 5.1 mmol/L (3.5-5.1); Protein, Total 7.1 g/dL (6.4-8.2); Sodium Level 128 mmol/L (136-145); Troponin-I HS 14 pg/mL (3.0-78.0)
[2024-04-11 10:53] LABS: Bacteria 1+ /hpf (None Seen)
[2024-04-11 11:00] VITALS: BP 110/55; PULSE 71; RESP 18; TEMP 36.5; O2SAT 94
[2024-04-11] MEDS: Ceftriaxone 1 GM/50 ML BAG IV (11:53)
--- NOTE | 2024-04-11 12:11 | NURSING ---
PCU MOSTELLER PNEUMONIA, WEAKNESS, HYPONATREMIA
--- NOTE | 2024-04-11 12:14 | US_ITS ---
EXAM: US RETROPERITONEAL LIMITED, RENAL CLINICAL INDICATION: CARLOS w/ h/o BPH, eval for obstruction TECHNIQUE: Limited grayscale and color Doppler sonographic evaluation of the retroperitoneum was performed. COMPARISON: No relevant prior studies available. FINDINGS: RIGHT KIDNEY: Patient is status post right nephrectomy. No perinephric collection is demonstrated. LEFT KIDNEY: Left kidney measures 12.2 cm in length. 3.0 and 2.1 cm left renal cysts which appear to be simple. No specific follow-up indicated. No hydronephrosis. No shadowing calculus. No perinephric collection is demonstrated. BLADDER: Urinary bladder wall appears trabeculated which may be due to cystitis or bladder hypertrophy. US/Kidney and Bladder IMPRESSION: Trabeculated urinary bladder wall. Right nephrectomy. Normal size left kidney. Electronically Signed: Getachew Gurrola MD at 14:17 EDT ,
--- NOTE | 2024-04-11 12:15 | CT_ITS ---
EXAM: CT CHEST, ABDOMEN AND PELVIS WITHOUT INTRAVENOUS CONTRAST CLINICAL INDICATION: CXR indeterminate, eval for pneumonia TECHNIQUE: Helically acquired images were obtained of the chest, abdomen and pelvis without intravenous contrast. This CT exam was performed using one or more of the following dose reduction techniques: automated exposure control, adjustment of the mA and/or kV according to patient size, and/or use of iterative reconstruction technique. COMPARISON: CTA chest 02/07/2009 FINDINGS: CHEST: LUNGS AND PLEURAL SPACES: Minimal pleural effusion noted bilaterally associated with mild bibasilar atelectasis. A 6 mm nodule noted within the left upper lobe on image 72 of sequence 2. Calcified granuloma within the left lower lobe is again seen. No pneumothorax. HEART: Coronary artery calcification and stents noted. 8 cm hypodense mass located along the dome of the liver within hepatic segment 8. Additional similar size lesion also noted within hepatic segment 5 suggestive of metastatic liver disease. Heart is normal size. No pericardial effusion. MEDIASTINUM: Reason of esophageal wall thickening has resolved. No mediastinal or hilar adenopathy. No hiatal hernia. THYROID: Normal. No thyroid nodules or calcification. ABDOMEN: LIVER: See above. GALLBLADDER AND BILE DUCTS: Gallbladder is contracted consistent with a nonfasting state. PANCREAS: Normal. No focal cystic mass. SPLEEN: Normal. Normal size without focal cystic or solid mass. ADRENALS: Normal. No nodules. KIDNEYS AND URETERS: 5 mm left renal stone. STOMACH AND BOWEL: Normal. No bowel obstruction or ileus. No focal inflammatory change. PELVIS: APPENDIX: No evidence of acute appendicitis. BLADDER: Normal. REPRODUCTIVE: Prostate gland is mildly enlarged. CHEST, ABDOMEN and PELVIS: INTRAPERITONEAL SPACE: Small volume ascites noted along the right lateral colonic gutter. 2.4 cm mass located within the upper abdomen anteriorly consistent with metastatic disease involving the greater omentum. Smaller additional nodules are seen inferior to this lesion. No free air. BONES/JOINTS: Prominent degenerative changes are noted within the spine. SOFT TISSUES: Multilobulated mass measuring 3.5 cm in maximum diameter noted within the subcutaneous tissues of the right lower quadrant with involvement of the adjacent lateral abdominal musculature may also represent metastasis. No discrete abdominal or pelvic wall hernia. VASCULATURE: See above. LYMPH NODES: Normal. No enlarged lymph nodes. TUBES, LINES AND DEVICES: Interval placement of TAVR. Tip of the right IJ infusion catheter extends to the cavoatrial junction. CT/CT Chest, Abd, Pelvis WO Cont IMPRESSION: 1. Large space-occupying lesions within hepatic segments 5 and 8 suggestive of metastatic disease. 2. Peritoneal carcinomatosis involving the greater omentum associated with small volume ascites. 3. 5 mm left upper lobe pulmonary nodule may also represent metastasis. 4. Subcutaneous right lateral abdominal wall muscle lesion also suggestive of metastasis. Electronically Signed: Getachew Gurrola MD at 14:53 EDT ,
--- NOTE | 2024-04-11 12:16 | HP.PCM.HOS_ITS ---
HPI - General General Date of Admission: 04/11/24 Date of Service: 04/11/24 Chief Complaint: Generalized weakness and productive cough HPI Narrative KIYA NUNEZ, is a 84 M who presented to [facility] ED on 04/11/2024 with worsening generalized weakness and productive cough. Patient has history of renal cell carcinoma s/p right nephrectomy in 2011 with cancer recurrence in 2021, follows with Dr. Feliciano with the [facility]. Patient family declined chemotherapy when cancer recurred and he instead was started on immunotherapy. He was on Keytruda for about 4 doses but had side effects, so he was then switched to Opdivo (nivolumab). Unclear how long he has been on this but has been tolerating this without issue until recently. Receives injections every 3 weeks but skipped his last dose that was due on 04/02 due to not feeling well. Patient follows with [facility] nephrology as well and saw them in the office yesterday. They noted there that his blood pressure was low and recommended that he cut his lisinopril dosing in half. They also damien labs but patient was not aware of the results prior to coming in today. In the ED, patient was found to have worsening kidney function with creatinine 2.74, up from baseline around 1.4-1.7. Also found to have a low sodium of 128. Chest x- ray showed bibasilar pulmonary densities concerning for atelectasis versus pneumonia. COVID/flu/RSV were negative. Given CARLOS, hyponatremia and concern for pneumonia with worsening weakness, hospitalist was contacted for admission. I saw the patient at bedside in the ED, and daughter present. Patient was somewhat fatigued appearing but otherwise sitting up comfortably in bed, conversing normally, in no acute distress. Patient lives at home with his and typically has good functional status at baseline. However, he has had more difficulty doing things for himself around the house over the past several days due to fatigue and worsening weakness. He has had a mild cough with greenish sputum production over the past several days. Has had minimal appetite over that time and oral intake has been decreased. Patient also notes that his abdomen has felt more full recently. Has history of constipation and bowel movements have been less frequent recently so he attributes the abdominal fullness to this. He denies any fevers or chills. Denies any chest pain. Denies any shortness of breath at rest. No other acute concerns at this time. [facility] Medical History Obesity due to excess calories Loss of hearing Wears glasses Wears dentures Cancer Diabetes Arthritis Prostate disease High cholesterol Back pain Dietary restriction History of diverticulitis Heartburn Non-smoker Shortness of breath on exertion Leg cramps History of edema History of pain when walking History of stress test Cardiology follow-up encounter Hypertension BRBPR (bright red blood per rectum) GI bleed Home Medications ?Medication ?Instructions ?Recorded ?Last Taken ?Type allopurinol 100 mg tablet 100 mg PO DAILYCM Gout 03/18/15 Unknown History ezetimibe 10 mg tablet 10 mg PO DAILY Cholesterol 03/18/15 Unknown History ltzmdzgk-qaz-zcfox acid 0.4 1 ea PO DAILY Supplement 03/18/15 Unknown History mg-lycopene 300 mcg-lutein 250 mcg tablet (Centrum Silver) pyridoxine (vitamin B6) 100 mg 100 mg PO DAILY Supplement 03/18/15 Unknown History tablet tamsulosin 0.4 mg capsule 0.8 mg PO QHS Urinary Retention 03/18/15 Unknown History cholecalciferol (vitamin D3) 25 1,000 unit PO DAILY Supplement 08/25/20 Unknown History mcg (1,000 unit) tablet lisinopril 10 mg tablet 10 mg PO QHS BP 04/10/21 Unknown History loratadine 10 mg tablet (Claritin) 10 mg PO DAILY Allergies 04/10/21 Unknown History aspirin 81 mg chewable tablet 1 tab PO DAILY prevention 04/11/24 Unknown History empagliflozin 25 mg tablet 25 mg PO DAILY diabetes 04/11/24 Unknown History (Jardiance) glimepiride 2 mg tablet 2 mg PO DAILY diabetes 04/11/24 Unknown History Allergy/AdvReac Type Severity Reaction Status Date / Time aspirin Allergy Rash Verified 04/10/21 09:10 atorvastatin calcium (From Allergy Other Verified 04/10/21 09:10 Lipitor) finasteride Allergy Rash Verified 04/10/21 09:10 ibuprofen (From Motrin) Allergy Swelling Verified 04/10/21 09:10 simvastatin (From Zocor) Allergy Other Verified 04/10/21 09:10 sulfamethoxazole (From Allergy Unknown Verified 04/10/21 09:10 Bactrim) trimethoprim (From Bactrim) Allergy Unknown Verified 04/10/21 09:10 Surgical History Status post left knee replacement Hx of colonoscopy Hx of tonsillectomy History of nephrectomy, right History of surgical removal of skin lesion Hx of bursectomy Hx of total shoulder replacement Social History (Updated 04/11/24 @ 13:54 by Bela Washington) Smoking Status: Never smoker ROS Constitutional Constitutional: Reports fatigue and weakness; Denies chills or fever(s) Eyes Eyes: Denies change in vision Cardiovascular Cardiovascular: Denies chest pain, dyspnea on exertion or edema Respiratory/Chest Respiratory/Chest: Reports productive cough; Denies shortness of breath at rest or wheezing Gastrointestinal Gastrointestinal: Reports constipation; Denies abdominal pain, diarrhea, nausea or vomiting Genitourinary Genitourinary: Denies difficulty urinating, dysuria, urinary frequency or urinary urgency Musculoskeletal Musculoskeletal: Denies arthralgias or myalgias Neurologic Neurologic: Denies dizziness, focal weakness or headache(s) Vital Signs Vital Signs Vital Signs: 04/11/24 09:28 04/11/24 09:43 04/11/24 10:31 Temperature 95.9 F L 97.7 F L Temperature Source Temporal Oral Pulse Rate 86 78 Respiratory Rate 18 18 Respiratory Pattern Normal Blood Pressure 119/61 121/58 H Blood Pressure Mean 80 79 Pulse Ox 93 93 Oxygen Delivery Method Room Air Room Air 04/11/24 11:00 Temperature 97.7 F L Temperature Source Oral Pulse Rate 71 Respiratory Rate 18 Respiratory Pattern Blood Pressure 110/55 L Blood Pressure Mean 73 Pulse Ox 94 Oxygen Delivery Method Room Air Weight Weight: 115.3 kg Body Mass Index (BMI) 39.8 Physical Exam Const alert, oriented x3 and no apparent distress Constitutional Narrative: Pleasant elderly male, obese, mildly fatigued appearing, otherwise sitting up comfortably in bed, conversing normally, in no acute distress. General Appearance: cooperative and comfortable HEENT normocephalic, head/scalp atraumatic, hearing grossly normal bilaterally and nasal mucous membranes and turbinates normal HEENT Narrative: Dry mucous membranes. Eyes PERRL, EOMs intact bilaterally and conjunctivae normal Neck full ROM Chest inspection of chest normal Resp normal respiratory effort and no use of accessory muscles Resp Narrative: Diminished breath sounds in bilateral lung bases, otherwise good air movement throughout. No wheezing or crackles noted. Breathing comfortably on room air at rest. Cardio regular rate, regular rhythm, no murmurs and peripheral pulses 2+ throughout GI GI Narrative: Abdomen mildly distended on palpation. Otherwise soft and nontender with normal bowel sounds. Back/Spine normal ROM Extremity normal to inspection, full ROM and no pedal edema Neuro moves all extremities and no focal motor deficits Speech: speech normal Psych mental status grossly normal Results Lab / Micro Data 04/11/24 10:17 04/11/24 10:17 Labs: Laboratory Results - last 24 hr 04/11/24 10:17: WBC 10.3, RBC 3.57 L, Hgb 10.9 L, Hct 33.6 L, MCV 94.1 H, MCH 30.5, MCHC 32.4, RDW Std Deviation 51.2 H, RDW Coeff of Joe 14.8 H, Plt Count 181, MPV 9.2, Immature Gran % (Auto) 0.300, Neut % (Auto) 35.5 L, Lymph % (Auto) 37.7, Sandoval % (Auto) 7.8, Eos % (Auto) 17.8 H, Baso % (Auto) 0.9, Absolute Neuts (auto) 3.7, Absolute Lymphs (auto) 3.88, Nucleated RBC % 0, Sodium 128 L, Potassium 5.1, Chloride 102, Carbon Dioxide 19.0 L, Anion Gap 7, BUN 33 H, C reatinine 2.74 H, Estim Creat Clear Calc 24.78, Est GFR (MDRD) Af Amer 29 L, Est GFR (MDRD) Non-Af 24 L, BUN/Creatinine Ratio 12.0, Glucose 145 H, Calcium 9.6, Total Bilirubin 0.50, AST 78 H, ALT 27, Alkaline Phosphatase 111, Troponin I High Sens 14, Total Protein 7.1, Albumin 2.9 L, Globulin 4.2, Albumin/Globulin Ratio 0.7 L 04/11/24 10:21: Urine Color Yellow, Urine Clarity Clear, Urine pH 6.0, Ur Specific Eugene 1.010, Urine Protein 100 H, Urine Glucose (UA) 1000 H, Urine Ketones Negative, Urine Occult Blood 25 H, Urine Nitrite Negative, Urine Bilirubin Negative, Urine Urobilinogen Normal, Ur Leukocyte Esterase Negative, Urine RBC 0 SEEN, Urine WBC 0 SEEN, Ur Squamous Epith Cells 0 SEEN, Urine Bacteria 1+, Urine Mucus 0 SEEN Micro: Microbiology 04/11/24 10:21 Mucosa - Nasopharyngeal SARS-CoV-2, Influenza & RSV (PCR) - Final Imaging Radiology Impression Chest X-Ray 04/11/24 09:58 IMPRESSION: Bibasilar pulmonary densities suggestive of atelectasis. Underlying pneumonia to BE excluded. Electronically Signed: Getachew Gurrola MD at 11:07 EDT , Assessment & Plan Assessment/Plan (1) Metastatic renal cell carcinoma: (2) Generalized weakness: (3) Hyponatremia: (4) Pneumonia: (5) CARLOS (acute kidney injury): PLAN: Plan Patient is an 84-year-old male who presented [facility] ED on 04/11/2024 with worsening weakness and productive cough. 1. History of renal cell carcinoma with concern for worsening metastatic disease ? Admit under inpatient status to PCU. History of renal cell carcinoma s/p right nephrectomy in 2011 with reported recurrence in 2021. Follows with Dr. Feliciano with [facility]. Currently on immunotherapy with Opdivo, patient and family declined chemotherapy when cancer recurred. CT chest abdomen pelvis without contrast on admit showed large space-occupying liver lesions, peritoneal carcinomatosis involving the greater omentum with small volume ascites, 5 mm left upper lobe pulmonary nodule, and subcutaneous right lateral abdominal wall muscle lesion all concerning for worsening metastatic disease. Suspect reported constipation and mild abdominal distention are due to metastatic disease, otherwise unclear how much these findings are playing a role in current presentation. No current inpatient oncology needs but will discuss findings with patient and family and ensure patient has appropriate plan of care on discharge. 2. CARLOS on CKD3 ? Creatinine 2.74 on admit. Baseline creatinine appears to be around 1.4-1.7 but notably last values were in 2020. Suspect mild prerenal CARLOS due to dehydration and possible pneumonia. Has history of BPH but renal/bladder ultrasound showed no hydronephrosis or acute urinary retention and patient no issues with urination recently. Given 1 L normal saline in the ED. Will hold on further IV fluids for now, follow-up a.m. BMP and monitor urine output. 3. Hyponatremia ? Sodium 128 on admit, baseline appears to be normal. Suspect due to recent poor p.o. intake and dehydration along with possible pneumonia. Given IV fluid resuscitation in the ED as noted above. Follow-up a.m. sodium level. Serum osmolality, urine osmolality and urine sodium ordered. 4. Concern for community-acquired pneumonia ? Presented with productive cough for the past several days. Chest x-ray on admit with bibasilar infiltrates concerning for pneumonia. CT chest showed minimal pleural effusion bilaterally with mild bibasilar atelectasis. Afebrile, no leukocytosis and hemodynamically stable since admission. COVID/flu/RSV negative. Sputum culture and urine antigens ordered. Will empirically treat with IV ceftriaxone and azithromycin for now but low threshold to discontinue antibiotics if infectious workup is unremarkable. 5. Acute on chronic debility ? PT/OT/case management consulted. Worsening weakness from baseline likely multifactorial from poor p.o. intake, possible pneumonia and cancer with worsening metastatic disease. Lives at home with , will likely need either home health care on discharge versus SNF placement. Chronic medical conditions: ? Obesity: BMI 38 on admit. Complicates hospital course, care and prognosis. ? Type 2 diabetes mellitus: Home regimen of glimepiride and empagliflozin. Hold home meds, will treat with sliding scale insulin with meals while inpatient. ? Hypertension: Holding home lisinopril given CARLOS as noted above. ? Hyperlipidemia: Continue home Zetia. ? BPH with obstructive symptoms: Continue home Flomax. ? History of gout: Continue home allopurinol at reduced dose given CARLOS. DVT prophylaxis: Heparin subcu CODE STATUS: Full code, verified Expected disposition: TBD Total clinical time spent by myself addressing the patient's medical issues, reviewing all the data, and collaborating with patient's care team: 75 minutes. Charges/Coding Visit Charges Inpatient E&M: 80528 Init Hosp L3
[2024-04-11] MEDS: Azithromycin 500 MG in Dextrose 5%-Water (250mL Bag) 250 ML 250 MG IV (12:22)
[2024-04-11 12:49] LABS: Hemoglobin A1c 6.2 % (3.8-5.6)
[2024-04-11 13:00] VITALS: BP 130/60; PULSE 76; RESP 21; TEMP 35.8; O2SAT 93
[2024-04-11 13:39] LABS: Ferritin 340 ng/mL (26-388); Iron 45 ug/dL (65-175); Iron Binding Capacity,Total 265 ug/dL (250-450)
[2024-04-11 13:51] VITALS: BMI 38.2
[2024-04-11 14:00] VITALS: BP 118/52; PULSE 76; RESP 18; TEMP 36.6; O2SAT 96; O2SAT 97
[2024-04-11 14:48] LABS: Osmolality, Serum 281 mOsm/KG (280-301)
[2024-04-11] MEDS: Senna/Docusate Sodium 1 Tablet 2 TABLET PO ×2 (15:04→22:15)
[2024-04-11 17:44] LABS: Bedside Glucose 129 mg/dL (74-106)
[2024-04-11 20:22] VITALS: BP 139/51; PULSE 79; RESP 16; TEMP 36.7; O2SAT 94
[2024-04-11] MEDS: Tamsulosin HCl 0.4 MG Capsule PO (22:15)
[2024-04-11 22:35] LABS: Bedside Glucose 102 mg/dL (74-106)
[2024-04-12 02:00] VITALS: BP 124/54; PULSE 79; RESP 16; TEMP 36.7; O2SAT 92
[2024-04-12 05:51] LABS: Hematocrit 34.3 % (40-54); Mean Corp Hgb Conc 32.1 g/dL (32-36); Mean Corpuscular Volume 93.5 fL (80-94); Mean Platelet Vol. 9.3 fl (6.2-12.0); Platelet Count 202 K/mm3 (150-450); RBC Distribution Width CV 14.9 % (11.6-14.6); RBC Distribution Width SD 50.9 fl (35.1-43.9); Red Blood Count 3.67 M/mm3 (4.6-6.2); White Blood Count 11.3 K/mm3 (4.4-11.0)
[2024-04-12 06:18] LABS: ALB/GLOB Ratio 0.7 RATIO (0.9-2.4); AST(SGOT) 76 U/L (15-37); Alanine Aminotransfer ALT/SGPT 29 U/L (16-61); Albumin, Serum 2.9 g/dL (3.2-5.0); Alkaline Phosphatase 116 U/L (45-117); Anion Gap 9 (5-15); BUN 30 mg/dL (7-18); BUN/Creat Ratio 11.2 RATIO (10-20); Calcium,Total 9.4 mg/dL (8.5-10.1); Chloride 101 mmol/L (98-107); Creatinine, Serum 2.69 mg/dL (0.70-1.30); EST Glomerular Filtration Rate 24 mL/min (>60); Est Glom Filt Rate - Afr Amer 29 mL/min (>60); Estimated Creatinine Clearance 24.72 ml/min; Globulin 4.1 g/dL (2.2-4.2); Glucose 98 mg/dL (74-106); Potassium 5.5 mmol/L (3.5-5.1); Sodium Level 129 mmol/L (136-145)
[2024-04-12 07:00] VITALS: O2SAT 94
[2024-04-12 07:06] LABS: Bedside Glucose 95 mg/dL (74-106)
[2024-04-12 07:55] VITALS: BP 131/50; PULSE 83; RESP 18; TEMP 37; O2SAT 95
[2024-04-12] MEDS: Loratadine 10 MG Tablet PO (08:16)
[2024-04-12] MEDS: Ezetimibe 10 MG Tablet PO (08:16)
[2024-04-12] MEDS: Pyridoxine HCl 100 MG Tablet PO (08:17)
[2024-04-12] MEDS: Cholecalciferol (VIT D3) 25 MCG TABLET (1,000 UNITS) PO (08:17)
[2024-04-12] MEDS: Aspirin 81 MG TAB.CHEW PO (08:17)
[2024-04-12 08:33] LABS: Urine Sodium 48 mmol/L (Not Establ.)
[2024-04-12 09:41] LABS: Osmolality, Urine 277 mOsm/KG
[2024-04-12] MEDS: Ceftriaxone 1 GM/50 ML BAG IV (10:39)
[2024-04-12] MEDS: 0.9% Saline Lock 10 ML Syringe IV ×2 (10:39→13:48)
[2024-04-12] MEDS: Azithromycin 500 MG in Dextrose 5%-Water (250mL Bag) 250 ML 250 MG IV (11:28)
--- NOTE | 2024-04-12 11:47 | PN.HOSP_ITS ---
Reason for Visit Reason for Visit: Diagnoses Malignant neoplasm of unspecified kidney, except renal pelvis (04/11/24) Hypo-osmolality and hyponatremia (04/11/24) Pneumonia, unspecified organism (04/11/24) Acute kidney failure, unspecified (04/11/24) Weakness (04/11/24) Subjective Subjective No acute events overnight. Saw patient at bedside this morning, several family members present. Patient appeared similar today to yesterday, was sitting up comfortably in bed and in no acute distress but remained moderately fatigued appearing. Patient states that he continues to feel fatigued and weak, similar to on admission. Continues to have reduced appetite. Abdominal continues to feel somewhat full but he denies any abdominal pain. No other new concerns today. Discussed with patient and family my concern that his cancer is progressing given his CT findings on admission. Noted to them given his peritoneal carcinomatosis and small volume ascites, suspect patient has abdominal fullness and has decreased appetite because of this, and his CARLOS and hyponatremia on admission were due to decreased p.o. intake recently. Unfortunately, it seems that his immunotherapy does not seem to be keeping his cancer controlled. Will plan to discuss over the phone w/ patient's [facility] oncologist tomorrow to determine if any further immunotherapy or other treatments would be available to the patient. If not, patient and family are agreeable to considering hospice care. Patient notably has borderline therapy scores and family is concerned about being able to take care of him at home, but they do not love the idea of rehab placement either. They would prefer to set up hospice care at home prior to discharge if this was the decision that is made after discussion with his oncologist. Objective Data Objective Data Vital Signs: Vital Signs Temp Pulse Resp BP Pulse Ox O2 Del Method 98.6 F 83 18 131/50 H 95 Room Air 04/12/24 07:55 04/12/24 07:55 04/12/24 07:55 04/12/24 07:55 04/12/24 07:55 04/12/24 07:55 Oxygen Delivery Method Room Air Weight: 110.8 kg Body Mass Index (BMI) 38.2 Intake & Output: Intake and Output for Last 24 Hours 04/10/24 04/11/24 04/12/24 23:59 23:59 23:59 Intake Total 1545 / 1845 1030 / 1030 Output Total 600 / 900 975 / 975 Balance 945 / 945 55 / 55 Lab / Micro Data 04/12/24 05:37 04/12/24 05:37 Labs: Laboratory Results - last 24 hr 04/11/24 10:17: Hemoglobin A1c 6.2 H, Iron 45 L, TIBC 265, Iron Saturation 17.0, Ferritin 340, Folate 38.20 04/11/24 12:14: Serum Osmolality 281 04/11/24 17:26: POC Glucose 129 H 04/11/24 22:11: POC Glucose 102 04/12/24 05:37: WBC 11.3 H, RBC 3.67 L, Hgb 11.0 L, Hct 34.3 L, MCV 93.5, MCH 30.0, MCHC 32.1, RDW Std Deviation 50.9 H, RDW Coeff of Joe 14.9 H, Plt Count 202, MPV 9.3, Sodium 129 L, Potassium 5.5 H, Chloride 101, Carbon Dioxide 19.0 L , Anion Gap 9, BUN 30 H, Creatinine 2.69 H, Estim Creat Clear Calc 24.72, Est GFR (MDRD) Af Amer 29 L, Est GFR (MDRD) Non-Af 24 L, BUN/Creatinine Ratio 11.2, Glucose 98, Calcium 9.4, Total Bilirubin 0.60, AST 76 H, ALT 29, Alkaline Phosphatase 116, Total Protein 7.0, Albumin 2.9 L, Globulin 4.1, A lbumin/Globulin Ratio 0.7 L 04/12/24 06:47: POC Glucose 95 04/12/24 08:05: Urine Osmolality 277, Ur Random Sodium 48, Urine Creatinine 71.40 Micro: Microbiology 04/11/24 17:36 Sputum, Expectorated/Coughed Respiratory Culture - Preliminary Appears to be normal respiratory celeste. Further studies to follow. 04/11/24 10:21 Urine, Clean Catch Urine Culture - Preliminary Culture exhibits no growth. 04/11/24 10:21 Urine, Clean Catch Legionella Antigen - Final 04/11/24 10:21 Urine, Clean Catch Streptococcus pneumoniae Antigen (M - Final 04/11/24 10:21 Mucosa - Nasopharyngeal SARS-CoV-2, Influenza & RSV (PCR) - Final Radiography Diagnostic Testing: Radiology Impression Renal Ultrasound 04/11/24 12:14 IMPRESSION: Trabeculated urinary bladder wall. Right nephrectomy. Normal size left kidney. Electronically Signed: Getachew Gurrola MD at 14:17 EDT Reading Location ID and State: [id number] [facility] Tel , Service support , Chest/Abdomen/Pelvis CT 04/11/24 12:15 IMPRESSION: 1. Large space-occupying lesions within hepatic segments 5 and 8 suggestive of metastatic disease. 2. Peritoneal carcinomatosis involving the greater omentum associated with small volume ascites. 3. 5 mm left upper lobe pulmonary nodule may also represent metastasis. 4. Subcutaneous right lateral abdominal wall muscle lesion also suggestive of metastasis. Electronically Signed: Getachew Gurrola MD at 14:53 EDT , Physical Exam Const alert, oriented x3 and no apparent distress Constitutional Narrative: Pleasant elderly male, obese, fatigued appearing, otherwise sitting up comfortably in bed, conversing normally, in no acute distress. Stable. General Appearance: cooperative and comfortable HEENT normocephalic, head/scalp atraumatic, hearing grossly normal bilaterally and nasal mucous membranes and turbinates normal HEENT Narrative: Dry mucous membranes. Eyes PERRL, EOMs intact bilaterally and conjunctivae normal Neck full ROM Chest inspection of chest normal Resp normal respiratory effort and no use of accessory muscles Resp Narrative: Diminished breath sounds in bilateral lung bases, otherwise good air movement throughout. No wheezing or crackles noted. Breathing comfortably on room air at rest. Stable. Cardio regular rate, regular rhythm, no murmurs and peripheral pulses 2+ throughout GI GI Narrative: Abdomen mildly distended on palpation. Otherwise soft and nontender with normal bowel sounds. Stable. Back/Spine normal ROM Extremity normal to inspection, full ROM and no pedal edema Neuro moves all extremities and no focal motor deficits Speech: speech normal Psych mental status grossly normal Assessment & Plan Assessment/Plan (1) Metastatic renal cell carcinoma: (2) Generalized weakness: (3) Hyponatremia: (4) Pneumonia: (5) CARLOS (acute kidney injury): PLAN: Plan Patient is an 84-year-old male who presented [facility] ED on 04/11/2024 with worsening weakness and productive cough. 1. History of renal cell carcinoma with concern for worsening metastatic disease ? History of renal cell carcinoma s/p right nephrectomy in 2011 with reported recurrence in 2021. Follows with Dr. Feliciano with [facility]. Currently on immunotherapy with Opdivo, patient and family declined chemotherapy when cancer recurred. CT chest abdomen pelvis without contrast on admit showed large space-occupying liver lesions, peritoneal carcinomatosis involving the greater omentum with small volume ascites, 5 mm left upper lobe pulmonary nodule, and subcutaneous right lateral abdominal wall muscle lesion all concerning for worsening metastatic disease. Discussed with family on 04/12, see subjective above. Will plan to talk with patient's oncologist over the phone tomorrow to determine next steps. 2. CARLOS on CKD3 ? Creatinine 2.74 on admit. Baseline creatinine appears to be around 1.4-1.7 but notably last values were in 2020. Suspect mild prerenal CARLOS due to dehydration and possible pneumonia. Has history of BPH but renal/bladder ultrasound showed no hydronephrosis or acute urinary retention and patient no issues with urination recently. Given 1 L normal saline in the ED. Creatinine 2.69 on 04/12. Given patient's poor p.o. intake, will give additional IV fluids on 04/12. Continue to monitor daily BMP and urine output. 3. Hyponatremia ? Sodium 128 on admit, baseline appears to be normal. Suspect due to recent poor p.o. intake and dehydration along with possible pneumonia. Given IV fluid resuscitation in the ED as noted above. Sodium 129 on hospital day 2. Will give additional IV fluids as noted above. Monitor daily BMP. 4. Concern for community-acquired pneumonia ? Presented with productive cough for the past several days. Chest x-ray on admit with bibasilar infiltrates concerning for pneumonia. CT chest showed minimal pleural effusion bilaterally with mild bibasilar atelectasis. Afebrile, no leukocytosis and hemodynamically stable since admission. COVID/flu/RSV negative. Urine antigens negative. Sputum culture pending. Will empirically treat with IV ceftriaxone and azithromycin for now but low threshold to discontinue antibiotics if infectious workup is unremarkable. 5. Acute on chronic debility ? PT/OT/case management following. Worsening weakness from baseline likely multifactorial from poor p.o. intake, possible pneumonia and cancer with worsening metastatic disease. Lives at home with . Further discharge plans will be determined based on conversation with oncology tomorrow. Chronic medical conditions: ? Obesity: BMI 38 on admit. Complicates hospital course, care and prognosis. ? Type 2 diabetes mellitus: Home regimen of glimepiride and empagliflozin. Hold home meds, will treat with sliding scale insulin with meals while inpatient. ? Hypertension: Holding home lisinopril given CARLOS as noted above. ? Hyperlipidemia: Continue home Zetia. ? BPH with obstructive symptoms: Continue home Flomax. ? History of gout: Continue home allopurinol at reduced dose given CARLOS. DVT prophylaxis: Heparin subcu CODE STATUS: Full code, verified Expected disposition: TBD Total clinical time spent by myself addressing the patient's medical issues, reviewing all the data, and collaborating with patient's care team: 35 minutes. Charges/Coding Visit Charges Inpatient E&M: 91340 Subs Hosp L2
[2024-04-12 14:08] LABS: Bedside Glucose 109 mg/dL (74-106)
[2024-04-12 14:52] VITALS: BP 118/53; PULSE 84; RESP 17; TEMP 36.9; O2SAT 95
[2024-04-12] MEDS: 0.9% Normal Saline (1000mL) 1,000 ML 250 ML IV (14:57)
[2024-04-12 18:14] LABS: Bedside Glucose 130 mg/dL (74-106)
[2024-04-12 20:40] VITALS: BP 113/46; PULSE 76; RESP 17; TEMP 36.2; O2SAT 93
[2024-04-12] MEDS: Tamsulosin HCl 0.4 MG Capsule PO (20:45)
[2024-04-12] MEDS: Senna/Docusate Sodium 1 Tablet 2 TABLET PO (20:45)
[2024-04-12] MEDS: MELATONIN 3 MG TABLET PO (20:48)
[2024-04-13] VITALS (7 sets, daily range): BP systolic 111–122; BP diastolic 43–54; PULSE 75–78; RESP 15–18; TEMP 36.2–37.4; O2SAT 91–94
[2024-04-13 00:26] LABS: Bedside Glucose 159 mg/dL (74-106)
[2024-04-13 05:00] LABS: Anion Gap 7 (5-15); BUN 29 mg/dL (7-18); BUN/Creat Ratio 10.8 RATIO (10-20); Chloride 101 mmol/L (98-107); Creatinine, Serum 2.68 mg/dL (0.70-1.30); EST Glomerular Filtration Rate 24 mL/min (>60); Est Glom Filt Rate - Afr Amer 29 mL/min (>60); Estimated Creatinine Clearance 24.81 ml/min; Glucose 106 mg/dL (74-106); Potassium 5.2 mmol/L (3.5-5.1); Sodium Level 127 mmol/L (136-145)
[2024-04-13] MEDS: 0.9% Saline Lock 10 ML Syringe IV (06:06)
[2024-04-13 06:34] LABS: Bedside Glucose 107 mg/dL (74-106)
[2024-04-13] MEDS: Loratadine 10 MG Tablet PO (07:53)
[2024-04-13] MEDS: Ezetimibe 10 MG Tablet PO (07:53)
[2024-04-13] MEDS: Pyridoxine HCl 100 MG Tablet PO (07:53)
[2024-04-13] MEDS: Aspirin 81 MG TAB.CHEW PO (07:53)
[2024-04-13] MEDS: Cholecalciferol (VIT D3) 25 MCG TABLET (1,000 UNITS) PO (07:53)
[2024-04-13 08:09] LABS: Vitamin B12 1609 pg/mL (211-911)
[2024-04-13] MEDS: Azithromycin 500 MG in Dextrose 5%-Water (250mL Bag) 250 ML 250 MG IV (09:15)
[2024-04-13] MEDS: Ceftriaxone 1 GM/50 ML BAG IV (10:27)
--- NOTE | 2024-04-13 10:46 | CASEMGMT ---
Discharge Planning A list of SNF providers including quality and resource use data and consistent with the patient's preferred geographic region, medical needs, and insurance network was created in [employer] Guide.? This list was provided to the Jodi Jacobs Discharge Planning Asst.
[2024-04-13 11:59] LABS: Bedside Glucose 173 mg/dL (74-106)
--- NOTE | 2024-04-13 12:19 | PCM.CONS.R ---
Assessment & Plan Assessment/Plan (1) CARLOS (acute kidney injury): (2) CKD (chronic kidney disease) stage 4, GFR 15-29 ml/min: (3) Metastatic renal cell carcinoma: PLAN: Plan This is a pleasant 84-year-old male with past medical history significant for metastatic renal cell carcinoma status post right nephrectomy (patient declined chemotherapy but is receiving immunotherapy, Opdivo; last dose received around first week of March), CKD stage IV, hypertension who presented to the emergency room with complaints of poor oral intake, weakness and cough. Admitted for CARLOS and probable pneumonia. Nephrology consulted in view of elevated creatinine. Reviewing past creatinine trends from [facility] possible baseline creatinine ranging around 2.1 mg/dL. Patient's creatinine was 2.7 on admission and today creatinine is 2.6. Possible CARLOS from recent infection, hypotension and poor oral intake. Will give patient another liter of gentle IV fluids today. Urinalysis negative for leukocyte esterase or blood. Encouraged patient to try and increase solute intake. Check labs in AM. Blood pressures are low normal, he is not on any antihypertensives. Continue off lisinopril for now. Potassium was 5.5 yesterday and improved to 5.2 today. Patient tries to follow a low potassium diet even at home and he will continue that while in hospital. No acute indication for [employer]. Further orders forthcoming as hospitalization evolves, thank you for allowing us to participate in the care of Mr. Nunez. HPI Consult Data Date of Consult: 04/13/24 HPI Narrative HPI Narrative: KIYA NUNEZ, is a 84 M with past medical history significant for renal cell carcinoma status post right nephrectomy in 2011 followed by [facility], history of CKD (followed by [facility] nephrology main campus), hypertension, BPH who presented to [place] emergency room with complaints of generalized weakness, poor appetite and productive cough. COVID/flu/RSV were negative. Chest x-ray concerning for pneumonia, patient started on IV antibiotics. Serum creatinine noted to be 2.7. Patient was admitted for further evaluation and treatment. Nephrology consulted in view of elevated creatinine. Patient along with his and daughter who are at bedside report patient was just seen by his nephrology team on Saturday, April 10. His blood pressure was noted to be low in office therefore lisinopril dose was decreased. In reviewing his past creatinine trends: February 19, 2024 serum creatinine 2.36, March 11, 2024 serum creatinine 2.10 and April 01, 2024 creatinine 2.10. On April 11 patient's creatinine was 2.74 and today his creatinine is 2.68. Patient does endorse poor appetite for the last few weeks. No nausea or vomiting. No recent NSAIDs. No urinary habitus changes. No worsening edema. [facility] Medical History Obesity due to excess calories Loss of hearing Wears glasses Wears dentures Cancer Diabetes Arthritis Prostate disease High cholesterol Back pain Dietary restriction History of diverticulitis Heartburn Non-smoker Shortness of breath on exertion Leg cramps History of edema History of pain when walking History of stress test Cardiology follow-up encounter Hypertension BRBPR (bright red blood per rectum) GI bleed Home Medications ?Medication ?Instructions ?Recorded ?Last Taken ?Type allopurinol 100 mg tablet 100 mg PO DAILYCM Gout 03/18/15 Unknown History ezetimibe 10 mg tablet 10 mg PO DAILY Cholesterol 03/18/15 Unknown History vojtqwvv-bvs-boojk acid 0.4 1 ea PO DAILY Supplement 03/18/15 Unknown History mg-lycopene 300 mcg-lutein 250 mcg tablet (Centrum Silver) pyridoxine (vitamin B6) 100 mg 100 mg PO DAILY Supplement 03/18/15 Unknown History tablet tamsulosin 0.4 mg capsule 0.8 mg PO QHS Urinary Retention 03/18/15 Unknown History cholecalciferol (vitamin D3) 25 1,000 unit PO DAILY Supplement 08/25/20 Unknown History mcg (1,000 unit) tablet lisinopril 10 mg tablet 10 mg PO QHS BP 04/10/21 Unknown History loratadine 10 mg tablet (Claritin) 10 mg PO DAILY Allergies 04/10/21 Unknown History aspirin 81 mg chewable tablet 1 tab PO DAILY prevention 04/11/24 Unknown History empagliflozin 25 mg tablet 25 mg PO DAILY diabetes 04/11/24 Unknown History (Jardiance) glimepiride 2 mg tablet 2 mg PO DAILY diabetes 04/11/24 Unknown History Allergy/AdvReac Type Severity Reaction Status Date / Time aspirin Allergy Rash Verified 04/10/21 09:10 atorvastatin calcium (From Allergy Other Verified 04/10/21 09:10 Lipitor) finasteride Allergy Rash Verified 04/10/21 09:10 ibuprofen (From Motrin) Allergy Swelling Verified 04/10/21 09:10 simvastatin (From Zocor) Allergy Other Verified 04/10/21 09:10 sulfamethoxazole (From Allergy Unknown Verified 04/10/21 09:10 Bactrim) trimethoprim (From Bactrim) Allergy Unknown Verified 04/10/21 09:10 Surgical History Status post left knee replacement Hx of colonoscopy Hx of tonsillectomy History of nephrectomy, right History of surgical removal of skin lesion Hx of bursectomy Hx of total shoulder replacement Social History (Updated 04/11/24 @ 13:54 by Bela Washington) Smoking Status: Never smoker ROS ROS Narrative As in HPI past medical history Physical Exam Narrative Alert and orient x 3, no apparent distress S1, S2, RRR Lung sounds clear anteriorly and posteriorly Abdomen soft, nontender Nonpitting edema bilateral lower legs and feet Lab / Micro Data 04/12/24 05:37 04/13/24 04:31 Labs: Laboratory Results - last 24 hr 04/11/24 12:14: Vitamin B12 1609 H 04/12/24 11:36: POC Glucose 109 H 04/12/24 17:53: POC Glucose 130 H 04/12/24 20:50: POC Glucose 159 H 04/13/24 04:31: Sodium 127 L, Potassium 5.2 H, Chloride 101, Carbon Dioxide 19.0 L, Anion Gap 7, BUN 29 H, Creatinine 2.68 H, Estim Creat Clear Calc 24.81, Est GFR (MDRD) Af Amer 29 L, Est GFR (MDRD) Non-Af 24 L, BUN/Creatinine Ratio 10.8, Glucose 106, Calcium 9.0 04/13/24 06:04: POC Glucose 107 H 04/13/24 11:39: POC Glucose 173 H Micro: Microbiology 04/11/24 17:36 Sputum, Expectorated/Coughed Gram Stain - Final 04/11/24 17:36 Sputum, Expectorated/Coughed Respiratory Culture - Preliminary Appears to be normal respiratory celeste. Further studies to follow. 04/11/24 10:21 Urine, Clean Catch Urine Culture - Preliminary Culture exhibits no growth.
--- NOTE | 2024-04-13 12:30 | PCM.PN.HOSP ---
Reason for Visit Reason for Visit: Diagnoses Malignant neoplasm of unspecified kidney, except renal pelvis (04/11/24) Hypo-osmolality and hyponatremia (04/11/24) Pneumonia, unspecified organism (04/11/24) Acute kidney failure, unspecified (04/11/24) Weakness (04/11/24) Subjective Subjective Saw patient at bedside this morning, and daughter present. Patient appeared similar today to previous days. Continued to appear fatigued but was otherwise sitting up comfortably in bed and in no acute distress. They reported that patient continues to have fairly poor p.o. intake yesterday and this morning. However, he was able to get out of bed with assistance and walk around the room and then sit in the chair without significant issue. No other new concerns. Had a good conversation with Dr. Escobar with Oncology over the phone this afternoon. Patient sees Dr. Feliciano but he is Dr. Escobar's partner, and Dr. Feliciano was not in the office today. Dr. Escobar was able to look at patient's chart and provide some guidance for management. He suspected that patient could have some adrenal disease and/or kidney disease related to his immunotherapy, given his continued low sodium and mildly elevated potassium. He recommended obtaining cortisol and aldosterone levels and then started the patient on low-dose IV steroids to see if this improves his functional status and appetite over the next few days. Recommended working with patient and family on discharging him to a skilled nurse facility once medically ready, with plan for close outpatient follow-up with Dr. Feliciano after discharge from SNF. Discussed this further with patient and family at the bedside this afternoon and they were agreeable with this plan. Objective Data Objective Data Vital Signs: Vital Signs Temp Pulse Resp BP Pulse Ox O2 Del Method 98.4 F 76 18 112/54 L 94 Room Air 04/13/24 10:21 04/13/24 10:21 04/13/24 10:21 04/13/24 10:21 04/13/24 10:21 04/13/24 10:21 Oxygen Delivery Method Room Air Weight: 110.8 kg Body Mass Index (BMI) 38.2 Intake & Output: Intake and Output for Last 24 Hours 04/11/24 04/12/24 04/13/24 23:59 23:59 23:59 Intake Total 1545 / 1845 2835 / 2835 780 / 780 Output Total 600 / 900 1650 / 1950 430 / 430 Balance 945 / 945 1185 / 885 350 / 350 Lab / Micro Data 04/12/24 05:37 04/13/24 04:31 Labs: Laboratory Results - last 24 hr 04/11/24 12:14: Vitamin B12 1609 H 04/12/24 11:36: POC Glucose 109 H 04/12/24 17:53: POC Glucose 130 H 04/12/24 20:50: POC Glucose 159 H 04/13/24 04:31: Sodium 127 L, Potassium 5.2 H, Chloride 101, Carbon Dioxide 19.0 L, Anion Gap 7, BUN 29 H, Creatinine 2.68 H, Estim Creat Clear Calc 24.81, Est GFR (MDRD) Af Amer 29 L, Est GFR (MDRD) Non-Af 24 L, BUN/Creatinine Ratio 10.8, Glucose 106, Calcium 9.0 04/13/24 06:04: POC Glucose 107 H 04/13/24 11:39: POC Glucose 173 H Micro: Microbiology 04/11/24 17:36 Sputum, Expectorated/Coughed Gram Stain - Final 04/11/24 17:36 Sputum, Expectorated/Coughed Respiratory Culture - Preliminary Appears to be normal respiratory celeste. Further studies to follow. 04/11/24 10:21 Urine, Clean Catch Urine Culture - Preliminary Culture exhibits no growth. 04/11/24 10:21 Urine, Clean Catch Legionella Antigen - Final 04/11/24 10:21 Urine, Clean Catch Streptococcus pneumoniae Antigen (M - Final 04/11/24 10:21 Mucosa - Nasopharyngeal SARS-CoV-2, Influenza & RSV (PCR) - Final Physical Exam Const alert, oriented x3 and no apparent distress Constitutional Narrative: Pleasant elderly male, obese, fatigued appearing, otherwise sitting up comfortably in bed, conversing normally, in no acute distress. Stable. General Appearance: cooperative and comfortable HEENT normocephalic, head/scalp atraumatic, hearing grossly normal bilaterally and nasal mucous membranes and turbinates normal Eyes PERRL, EOMs intact bilaterally and conjunctivae normal Neck full ROM Chest inspection of chest normal Resp normal respiratory effort and no use of accessory muscles Resp Narrative: Diminished breath sounds in bilateral lung bases, otherwise good air movement throughout. No wheezing or crackles noted. Breathing comfortably on room air at rest. Stable. Cardio regular rate, regular rhythm, no murmurs and peripheral pulses 2+ throughout GI GI Narrative: Abdomen mildly distended on palpation. Otherwise soft and nontender with normal bowel sounds. Stable. Back/Spine normal ROM Extremity normal to inspection, full ROM and no pedal edema Neuro moves all extremities and no focal motor deficits Speech: speech normal Psych mental status grossly normal Assessment & Plan Assessment/Plan (1) Metastatic renal cell carcinoma: (2) Generalized weakness: (3) Hyponatremia: (4) Pneumonia: (5) CARLOS (acute kidney injury): PLAN: Plan Patient is an 84-year-old male who presented [facility] ED on 04/11/2024 with worsening weakness and productive cough. 1. History of renal cell carcinoma with concern for worsening metastatic disease ? History of renal cell carcinoma s/p right nephrectomy in 2011 with reported recurrence in 2021. Follows with Dr. Feliciano with [facility]. Currently on immunotherapy with Opdivo, patient and family declined chemotherapy when cancer recurred. CT chest abdomen pelvis without contrast on admit showed large space-occupying liver lesions, peritoneal carcinomatosis involving the greater omentum with small volume ascites, 5 mm left upper lobe pulmonary nodule, and subcutaneous right lateral abdominal wall muscle lesion all concerning for worsening metastatic disease. Discussed over the phone with oncology on 04/13; high concern that patient could have adrenal and/or kidney injury due to immunotherapy. Recommended obtaining cortisol and aldosterone levels and starting low-dose IV steroids. Labs ordered and will start IV Decadron 2 mg twice daily on 04/14. Will plan for SNF on discharge with outpatient follow-up with oncology shortly thereafter and further discussion regarding cancer treatment options versus goals of care at that time. 2. CARLOS on CKD4 ? Nephrology following. Creatinine 2.74 on admit. Baseline creatinine appears to be around 2.1-2.2 per most recent [facility] notes. Renal/bladder ultrasound on admit with no hydronephrosis or acute urinary retention. Suspected that CARLOS is multifactorial from hypotension, poor p.o. intake and possible infection. Received IV fluids in the ED and additional fluids on 04/12, creatinine remaining stable around 2.7. Per nephrology, giving further gentle IV fluids on 04/13. Continue to monitor BMP and urine output daily. Holding home lisinopril. 3. Hyponatremia ? Sodium 128 on admit, baseline appears to be normal. Suspect due to recent poor p.o. intake and dehydration along with possible pneumonia. However, oncology also had concerns for a possible type IV RTA secondary to immunotherapy given low sodium and high potassium. Cortisol and aldosterone ordered on 04/13, pending. Nephrology following as above. Continue to monitor sodium daily. 4. Hyperkalemia ? Potassium 5.1 on admit, peaked at 5.5 on 04/12. Most recent potassium 5.2 on 04/13. Presumed secondary to CARLOS. No specific hyperkalemia treatment indicated, continue to monitor potassium daily. 5. Concern for community-acquired pneumonia ? Presented with productive cough for several days prior to admission. Chest x-ray on admit with bibasilar infiltrates concerning for pneumonia. CT chest showed minimal pleural effusion bilaterally with mild bibasilar atelectasis. Afebrile, no leukocytosis and hemodynamically stable since admission. COVID/flu/RSV negative. Urine antigens negative. Sputum culture negative. Empirically treated with IV ceftriaxone and azithromycin on admission but given negative workup, discontinued on 04/13. 6. Acute on chronic debility ? PT/OT/case management following. Worsening weakness from baseline likely multifactorial from poor p.o. intake, possible pneumonia and cancer with worsening metastatic disease. Lives at home with . Planning for SNF on discharge as noted above. Chronic medical conditions: ? Obesity: BMI 38 on admit. Complicates hospital course, care and prognosis. ? Type 2 diabetes mellitus: Home regimen of glimepiride and empagliflozin. Hold home meds, will treat with sliding scale insulin with meals while inpatient. ? Hypertension: Holding home lisinopril given CARLOS as noted above. ? Hyperlipidemia: Continue home Zetia. ? BPH with obstructive symptoms: Continue home Flomax. ? History of gout: Continue home allopurinol at reduced dose given CARLOS. DVT prophylaxis: Heparin subcu CODE STATUS: Full code, verified Expected disposition: SNF, 2 to 3 days Total clinical time spent by myself addressing the patient's medical issues, reviewing all the data, and collaborating with patient's care team: 35 minutes. Charges/Coding Visit Charges Inpatient E&M: 58414 Subs Hosp L2
[2024-04-13] MEDS: 0.9% Normal Saline (1000mL) 1,000 ML 50 ML IV (13:16)
--- NOTE | 2024-04-13 15:45 | CASEMGMT ---
ENOCH POOL Face to Face with patient for initial transition planning/care coordination assessment. ENOCH POOL introduced self and role at [facility]. Patient lying in bed, alert and confused, and daughter at bedside. willing to participate in assessment and is able to answer all questions appropriately. Care providers, pharmacy, and demographics verified. Lace: 10 Strata: 3 PCP: Slava Specialists: Braden, oncologist; [facility]erred [facility]acy: [facility] Insurance: MCR, [employer] Prescription Benefit: yes Living Will/HPOA: yes, Breanne LNOK: , daughters Living Arrangements: Patient lives with in a single story home with 2 steps to enter. Patient was independent at home, assisted with bathing. Transportation: , daughter DME/HHC: Patient has shower chair, raised toilet, cane, rollator. No previous HHC or SNF. wishes for patient to discharge to TCU. ENOCH POOL provided SNF list for additional preferences. states she has no further needs or concerns at this time. ENOCH POOL updated SW regarding request for TCU. CM to follow for discharge planning needs that may arise. Disposition Plan: SNF pending acceptance and when medically ready. Jasmyne AVILES, RN, CM
--- NOTE | 2024-04-13 16:04 | CASEMGMT ---
Per RN CM patient and family would like patient to go to [facility] TCU. SW made a referral to TCU. Viviana SNOW
[2024-04-13 18:26] LABS: Bedside Glucose 102 mg/dL (74-106)
[2024-04-13] MEDS: Tamsulosin HCl 0.4 MG Capsule PO (20:28)
[2024-04-13 20:49] LABS: Bedside Glucose 131 mg/dL (74-106)
[2024-04-14] VITALS (7 sets, daily range): BP systolic 116–131; BP diastolic 52–66; PULSE 72–97; RESP 18–20; TEMP 36.3–37.4; O2SAT 92–95
[2024-04-14 06:53] LABS: Bedside Glucose 107 mg/dL (74-106)
[2024-04-14] MEDS: 0.9% Normal Saline (1000mL) 1,000 ML 50 ML IV (06:57)
[2024-04-14] MEDS: Ezetimibe 10 MG Tablet PO (09:42)
[2024-04-14] MEDS: Cholecalciferol (VIT D3) 25 MCG TABLET (1,000 UNITS) PO (09:42)
[2024-04-14] MEDS: Aspirin 81 MG TAB.CHEW PO (09:42)
[2024-04-14] MEDS: Loratadine 10 MG Tablet PO (09:43)
[2024-04-14] MEDS: Pyridoxine HCl 100 MG Tablet PO (09:43)
[2024-04-14] MEDS: Ceftriaxone 1 GM/50 ML BAG IV (09:43)
[2024-04-14] MEDS: dexAMETHasone 4 MG/ML Vial 2 MG IV ×2 (09:43→17:20)
[2024-04-14] MEDS: Acetaminophen 325 MG Tablet 650 MG PO (09:46)
--- NOTE | 2024-04-14 10:56 | PCM.PN.HOSP ---
Reason for Visit Reason for Visit: Diagnoses Malignant neoplasm of unspecified kidney, except renal pelvis (04/11/24) Hypo-osmolality and hyponatremia (04/11/24) Pneumonia, unspecified organism (04/11/24) Acute kidney failure, unspecified (04/11/24) Weakness (04/11/24) Subjective Subjective No acute events overnight. Saw patient at bedside this morning, and daughter present. Patient appeared similar this morning to previous days. Was sitting up comfortably in bed and in no acute distress but was very fatigued appearing. Per family, he continued to have fairly minimal appetite, similar to previous days. Patient denied any acute pain or discomfort. No other new concerns today. Objective Data Objective Data Vital Signs: Vital Signs Temp Pulse Resp BP Pulse Ox O2 Del Method 99.1 F 85 18 131/52 H 92 Room Air 04/14/24 09:39 04/14/24 09:39 04/14/24 09:39 04/14/24 09:39 04/14/24 09:39 04/14/24 09:39 Oxygen Delivery Method Room Air Weight: 110.8 kg Body Mass Index (BMI) 38.2 Intake & Output: Intake and Output for Last 24 Hours 04/12/24 04/13/24 04/14/24 23:59 23:59 23:59 Intake Total 2835 / 2835 1200 / 1350 1134.17 / 1134.17 Output Total 1650 / 1950 430 / 730 600 / 600 Balance 1185 / 885 770 / 620 534.17 / 534.17 Lab / Micro Data 04/12/24 05:37 04/13/24 04:31 Labs: Laboratory Results - last 24 hr 04/13/24 11:39: POC Glucose 173 H 04/13/24 15:45: Cortisol 2.40 L 04/13/24 16:36: POC Glucose 102 04/13/24 20:26: POC Glucose 131 H 04/14/24 06:36: POC Glucose 107 H Micro: Microbiology 04/11/24 17:36 Sputum, Expectorated/Coughed Gram Stain - Final 04/11/24 17:36 Sputum, Expectorated/Coughed Respiratory Culture - Final Mixed normal respiratory celeste. No Streptococcus pneumoniae, beta-hemolytic Streptococcus or Staphylococcus aureus isolated. 04/11/24 10:21 Urine, Clean Catch Urine Culture - Final Culture exhibits no growth. 04/11/24 10:21 Urine, Clean Catch Legionella Antigen - Final 04/11/24 10:21 Urine, Clean Catch Streptococcus pneumoniae Antigen (M - Final 04/11/24 10:21 Mucosa - Nasopharyngeal SARS-CoV-2, Influenza & RSV (PCR) - Final Physical Exam Const alert, oriented x3 and no apparent distress Constitutional Narrative: Pleasant elderly male, obese, very fatigued appearing, otherwise sitting up comfortably in bed, conversing normally, in no acute distress. Stable. General Appearance: cooperative and comfortable HEENT normocephalic, head/scalp atraumatic, hearing grossly normal bilaterally and nasal mucous membranes and turbinates normal Eyes PERRL, EOMs intact bilaterally and conjunctivae normal Neck full ROM Chest inspection of chest normal Resp normal respiratory effort and no use of accessory muscles Resp Narrative: Diminished breath sounds in bilateral lung bases, otherwise good air movement throughout. No wheezing or crackles noted. Breathing comfortably on room air at rest. Stable. Cardio regular rate, regular rhythm, no murmurs and peripheral pulses 2+ throughout GI GI Narrative: Abdomen mildly distended on palpation. Otherwise soft and nontender with normal bowel sounds. Stable. Back/Spine normal ROM Extremity normal to inspection, full ROM and no pedal edema Neuro moves all extremities and no focal motor deficits Speech: speech normal Psych mental status grossly normal Assessment & Plan Assessment/Plan (1) Metastatic renal cell carcinoma: (2) Generalized weakness: (3) Hyponatremia: (4) Pneumonia: (5) CARLOS (acute kidney injury): PLAN: Plan Patient is an 84-year-old male who presented [facility] ED on 04/11/2024 with worsening weakness and productive cough. 1. History of renal cell carcinoma with concern for worsening metastatic disease ? History of renal cell carcinoma s/p right nephrectomy in 2011 with reported recurrence in 2021. Follows with Dr. Feliciano with [facility]. Currently on immunotherapy with Opdivo, patient and family declined chemotherapy when cancer recurred. CT chest abdomen pelvis without contrast on admit showed large space-occupying liver lesions, peritoneal carcinomatosis involving the greater omentum with small volume ascites, 5 mm left upper lobe pulmonary nodule, and subcutaneous right lateral abdominal wall muscle lesion all concerning for worsening metastatic disease. Discussed over the phone with oncology on 04/13; high concern that patient could have adrenal and/or kidney injury due to immunotherapy. Random cortisol level was low at 2. Aldosterone level pending. Started on IV Decadron 2 mg twice daily on 04/14, will monitor closely for signs of improvement. Planning for SNF on discharge with outpatient oncology follow-up shortly thereafter for further discussion regarding cancer treatment options versus goals of care. 2. CARLOS on CKD4 ? Nephrology following. Creatinine 2.74 on admit. Baseline creatinine appears to be around 2.1-2.2 per most recent [facility] notes. Renal/bladder ultrasound on admit with no hydronephrosis or acute urinary retention. Suspected that CARLOS is multifactorial from hypotension, poor p.o. intake and possible infection. Received IV fluids in the ED and additional fluids on 04/12-, creatinine remaining stable but not improving much. Continue to monitor BMP and urine output daily. Holding home lisinopril. 3. Hyponatremia ? Sodium 128 on admit, baseline appears to be normal. Suspect due to recent poor p.o. intake and dehydration along with possible pneumonia. However, oncology also had concerns for a possible type IV RTA secondary to immunotherapy given low sodium and high potassium. Cortisol low, aldosterone pending as above. Sodium remaining stable ~127-130. Nephrology following as above. Continue to monitor sodium daily. 4. Hyperkalemia ? Potassium 5.1 on admit, peaked at 5.5 on 04/12, now improving. Presumed secondary to CARLOS. No specific hyperkalemia treatment indicated, continue to monitor potassium daily. 5. Concern for community-acquired pneumonia ? Presented with productive cough for several days prior to admission. Chest x-ray on admit with bibasilar infiltrates concerning for pneumonia. CT chest showed minimal pleural effusion bilaterally with mild bibasilar atelectasis. Afebrile, no leukocytosis and hemodynamically stable since admission. COVID/flu/RSV negative. Urine antigens negative. Sputum culture negative. Empirically treated with IV ceftriaxone and azithromycin on admission but given negative workup, discontinued on 04/13. 6. Acute on chronic debility ? PT/OT/case management following. Worsening weakness from baseline likely multifactorial from poor p.o. intake, possible pneumonia and cancer with worsening metastatic disease. Lives at home with . Planning for SNF on discharge as noted above. Chronic medical conditions: ? Obesity: BMI 38 on admit. Complicates hospital course, care and prognosis. ? Type 2 diabetes mellitus: Home regimen of glimepiride and empagliflozin. Hold home meds, will treat with sliding scale insulin with meals while inpatient. ? Hypertension: Holding home lisinopril given CARLOS as noted above. ? Hyperlipidemia: Continue home Zetia. ? BPH with obstructive symptoms: Continue home Flomax. ? History of gout: Continue home allopurinol at reduced dose given CARLOS. DVT prophylaxis: Heparin subcu CODE STATUS: Full code, verified Expected disposition: SNF, 2 to 3 days Total clinical time spent by myself addressing the patient's medical issues, reviewing all the data, and collaborating with patient's care team: 35 minutes. Charges/Coding Visit Charges Inpatient E&M: 90026 Subs Hosp L2
--- NOTE | 2024-04-14 11:00 | CASEMGMT ---
TCU has declined patient. SW went to patient's room. Patient's was present. SW introduced self and role at [facility]. SW let patient and his know TCU is unable to take patient. They confirmed they have a list of other facilities. MARY wrote down SW's name and number for them to call with additional choices. Viviana SNOW
[2024-04-14] MEDS: Azithromycin 500 MG in Dextrose 5%-Water (250mL Bag) 250 ML 250 MG IV (11:02)
[2024-04-14] MEDS: Insulin Lispro 100 UNIT/ML INSULN.PEN SC ×3 (11:42→21:21)
[2024-04-14 11:56] LABS: Bedside Glucose 211 mg/dL (74-106)
[2024-04-14 14:48] LABS: Hematocrit 32.8 % (40-54); Hemoglobin 10.7 g/dL (13.0-16.5); Mean Corp Hgb Conc 32.6 g/dL (32-36); Mean Corpuscular Hgb 30.2 pg (27.0-32.0); Mean Corpuscular Volume 92.7 fL (80-94); Mean Platelet Vol. 9.2 fl (6.2-12.0); Platelet Count 201 K/mm3 (150-450); RBC Distribution Width CV 14.6 % (11.6-14.6); RBC Distribution Width SD 49.9 fl (35.1-43.9); Red Blood Count 3.54 M/mm3 (4.6-6.2); White Blood Count 10.2 K/mm3 (4.4-11.0)
[2024-04-14 15:12] LABS: Anion Gap 9 (5-15); BUN 24 mg/dL (7-18); BUN/Creat Ratio 8.7 RATIO (10-20); Calcium,Total 8.5 mg/dL (8.5-10.1); Chloride 99 mmol/L (98-107); Creatinine, Serum 2.75 mg/dL (0.70-1.30); EST Glomerular Filtration Rate 24 mL/min (>60); Est Glom Filt Rate - Afr Amer 29 mL/min (>60); Estimated Creatinine Clearance 24.18 ml/min; Glucose 227 mg/dL (74-106); Potassium 5.7 mmol/L (3.5-5.1); Sodium Level 126 mmol/L (136-145)
[2024-04-14] MEDS: Ipratropium/Albuterol Sulfate 3 ML AMPUL.NEB INHALATION ×2 (15:51→19:45)
[2024-04-14 18:29] LABS: Bedside Glucose 253 mg/dL (74-106)
[2024-04-14] MEDS: Tamsulosin HCl 0.4 MG Capsule PO (21:16)
[2024-04-14] MEDS: MELATONIN 3 MG TABLET PO (21:16)
[2024-04-14 21:48] LABS: Bedside Glucose 276 mg/dL (74-106)
[2024-04-15] VITALS (8 sets, daily range): BP systolic 114–135; BP diastolic 60–100; PULSE 79–90; RESP 18–20; TEMP 35.9–36.6; O2SAT 93–97
[2024-04-15 05:08] LABS: Anion Gap 8 (5-15); BUN 26 mg/dL (7-18); BUN/Creat Ratio 10.6 RATIO (10-20); Calcium,Total 9.1 mg/dL (8.5-10.1); Chloride 103 mmol/L (98-107); Creatinine, Serum 2.45 mg/dL (0.70-1.30); EST Glomerular Filtration Rate 27 mL/min (>60); Est Glom Filt Rate - Afr Amer 33 mL/min (>60); Estimated Creatinine Clearance 27.14 ml/min; Glucose 230 mg/dL (74-106); Potassium 5.3 mmol/L (3.5-5.1); Sodium Level 130 mmol/L (136-145)
[2024-04-15] MEDS: 0.9% Normal Saline (1000mL) 1,000 ML 50 ML IV (06:18)
[2024-04-15] MEDS: Insulin Lispro 100 UNIT/ML INSULN.PEN SC ×4 (06:34→22:14)
[2024-04-15 06:56] LABS: Bedside Glucose 192 mg/dL (74-106)
[2024-04-15] MEDS: Ipratropium/Albuterol Sulfate 3 ML AMPUL.NEB INHALATION ×3 (07:04→19:42)
[2024-04-15] MEDS: Aspirin 81 MG TAB.CHEW PO (09:43)
[2024-04-15] MEDS: Ezetimibe 10 MG Tablet PO (09:43)
[2024-04-15] MEDS: Ceftriaxone 1 GM/50 ML BAG IV (09:43)
[2024-04-15] MEDS: Pyridoxine HCl 100 MG Tablet PO (09:43)
[2024-04-15] MEDS: dexAMETHasone 4 MG/ML Vial 2 MG IV ×2 (09:43→16:43)
[2024-04-15] MEDS: Senna/Docusate Sodium 1 Tablet 2 TABLET PO ×2 (09:43→22:11)
[2024-04-15] MEDS: Loratadine 10 MG Tablet PO (09:43)
[2024-04-15] MEDS: Cholecalciferol (VIT D3) 25 MCG TABLET (1,000 UNITS) PO (09:43)
[2024-04-15] MEDS: Azithromycin 500 MG in Dextrose 5%-Water (250mL Bag) 250 ML 250 MG IV (11:27)
[2024-04-15 11:56] LABS: Bedside Glucose 246 mg/dL (74-106)
--- NOTE | 2024-04-15 12:32 | PCM.PN.HOSP ---
Reason for Visit Reason for Visit: Diagnoses Malignant neoplasm of unspecified kidney, except renal pelvis (04/11/24) Hypo-osmolality and hyponatremia (04/11/24) Pneumonia, unspecified organism (04/11/24) Acute kidney failure, unspecified (04/11/24) Weakness (04/11/24) Subjective Subjective Saw patient at bedside this morning, and daughter present. Patient appears much improved today from previous days. Sitting up in bedside chair and energy is significantly improved. Per patient and family, appetite has been much improved since yesterday afternoon. Patient had improved exercise capacity with therapy shortly before I saw him. He and family were very encouraged by these developments. No other new concerns today. Objective Data Objective Data Vital Signs: Vital Signs Temp Pulse Resp BP Pulse Ox O2 Del Method 97.6 F L 86 18 114/62 93 Room Air 04/15/24 09:40 04/15/24 09:40 04/15/24 09:40 04/15/24 09:40 04/15/24 09:40 04/15/24 09:40 Oxygen Delivery Method Room Air Weight: 110.8 kg Body Mass Index (BMI) 38.2 Intake & Output: Intake and Output for Last 24 Hours 04/13/24 04/14/24 04/15/24 23:59 23:59 23:59 Intake Total 1200 / 1350 2454.17 / 2554.17 1400 / 1400 Output Total 430 / 730 1800 / 2100 1400 / 1400 Balance 770 / 620 654.17 / 454.17 0 / 0 Lab / Micro Data 04/14/24 14:50 04/15/24 04:23 Labs: Laboratory Results - last 24 hr 04/14/24 14:30: Sodium 126 L, Potassium 5.7 H, Chloride 99, Carbon Dioxide 18.0 L, Anion Gap 9, BUN 24 H, Creatinine 2.75 H, Estim Creat Clear Calc 24.18, Est GFR (MDRD) Af Amer 29 L, Est GFR (MDRD) Non-Af 24 L, BUN/Creatinine Ratio 8.7 L, Glucose 227 H, Calcium 8.5 04/14/24 14:50: WBC 10.2, RBC 3.54 L, Hgb 10.7 L, Hct 32.8 L, MCV 92.7, MCH 30.2, MCHC 32.6, RDW Std Deviation 49.9 H, RDW Coeff of Joe 14.6, Plt Count 201, MPV 9.2 04/14/24 17:17: POC Glucose 253 H 04/14/24 21:20: POC Glucose 276 H 04/15/24 04:23: Sodium 130 L, Potassium 5.3 H, Chloride 103, Carbon Dioxide 19.0 L, Anion Gap 8, BUN 26 H, Creatinine 2.45 H, Estim Creat Clear Calc 27.14, Est GFR (MDRD) Af Amer 33 L, Est GFR (MDRD) Non-Af 27 L, BUN/Creatinine Ratio 10.6, Glucose 230 H, Calcium 9.1 04/15/24 06:32: POC Glucose 192 H 04/15/24 11:31: POC Glucose 246 H Micro: Microbiology 04/11/24 17:36 Sputum, Expectorated/Coughed Gram Stain - Final 04/11/24 17:36 Sputum, Expectorated/Coughed Respiratory Culture - Final Mixed normal respiratory celeste. No Streptococcus pneumoniae, beta-hemolytic Streptococcus or Staphylococcus aureus isolated. 04/11/24 10:21 Urine, Clean Catch Urine Culture - Final Culture exhibits no growth. 04/11/24 10:21 Urine, Clean Catch Legionella Antigen - Final 04/11/24 10:21 Urine, Clean Catch Streptococcus pneumoniae Antigen (M - Final 04/11/24 10:21 Mucosa - Nasopharyngeal SARS-CoV-2, Influenza & RSV (PCR) - Final Physical Exam Const alert, oriented x3 and no apparent distress Constitutional Narrative: Pleasant elderly male, obese, energy much improved today, sitting up comfortably in bedside chair, conversing normally, in no acute distress. Improving. General Appearance: cooperative and comfortable HEENT normocephalic, head/scalp atraumatic, hearing grossly normal bilaterally and nasal mucous membranes and turbinates normal Eyes PERRL, EOMs intact bilaterally and conjunctivae normal Neck full ROM Chest inspection of chest normal Resp normal respiratory effort and no use of accessory muscles Resp Narrative: Diminished breath sounds in bilateral lung bases, otherwise good air movement throughout. No wheezing or crackles noted. Breathing comfortably on room air at rest. Stable. Cardio regular rate, regular rhythm, no murmurs and peripheral pulses 2+ throughout GI GI Narrative: Abdomen mildly distended on palpation. Otherwise soft and nontender with normal bowel sounds. Stable. Back/Spine normal ROM Extremity normal to inspection, full ROM and no pedal edema Neuro moves all extremities and no focal motor deficits Speech: speech normal Psych mental status grossly normal Assessment & Plan Assessment/Plan (1) Metastatic renal cell carcinoma: (2) Generalized weakness: (3) Hyponatremia: (4) Pneumonia: (5) CARLOS (acute kidney injury): PLAN: Plan Patient is an 84-year-old male who presented [facility] ED on 04/11/2024 with worsening weakness and productive cough. 1. History of renal cell carcinoma with concern for worsening metastatic disease ? History of renal cell carcinoma s/p right nephrectomy in 2011 with reported recurrence in 2021. Follows with Dr. Feliciano with [facility]. Currently on immunotherapy with Opdivo, patient and family declined chemotherapy when cancer recurred. CT chest abdomen pelvis without contrast on admit showed large space-occupying liver lesions, peritoneal carcinomatosis involving the greater omentum with small volume ascites, 5 mm left upper lobe pulmonary nodule, and subcutaneous right lateral abdominal wall muscle lesion all concerning for worsening metastatic disease. Discussed over the phone with oncology on 04/13; high concern that patient could have adrenal and/or kidney injury due to immunotherapy. Random cortisol level was low at 2. Aldosterone level pending. Started on IV Decadron 2 mg twice daily on 04/14 and patient has had significant improvement in energy level and appetite since then. Will finish 4 doses of IV Decadron on 04/15 and de-escalate to p.o. Decadron 2 mg daily on 04/16. Planning for SNF on discharge with outpatient oncology follow-up shortly thereafter for further discussion regarding cancer treatment options. Will likely be medically ready for discharge to SNF on 04/16-04/17. 2. CARLOS on CKD4 ? Nephrology following. Creatinine 2.74 on admit. Baseline creatinine appears to be around 2.1-2.2 per most recent [facility] notes. Renal/bladder ultrasound on admit with no hydronephrosis or acute urinary retention. Suspected that CARLOS is multifactorial from hypotension, poor p.o. intake and possible infection. Unfortunately, creatinine remained stable with significant IV fluid resuscitation. Now with slight improvement after starting IV steroids, most recent creatinine 2.45 on 04/15. Continue to monitor BMP and urine output daily. Holding home lisinopril. 3. Hyponatremia ? Sodium 128 on admit, baseline appears to be normal. Suspect due to recent poor p.o. intake and dehydration along with possible pneumonia. However, oncology also had concerns for a possible type IV RTA secondary to immunotherapy given low sodium and high potassium. Cortisol low, aldosterone pending as above. Sodium remaining stable ~127-130. Nephrology following as above. Continue to monitor sodium daily. 4. Hyperkalemia ? Potassium 5.1 on admit, has remained stable around 5.1-5.7. Most recent potassium 5.3 on 04/15. Presumed secondary to CARLOS. No specific hyperkalemia treatment indicated, continue steroids as above. Continue to monitor potassium daily. 5. Concern for community-acquired pneumonia ? Presented with productive cough for several days prior to admission. Chest x-ray on admit with bibasilar infiltrates concerning for pneumonia. CT chest showed minimal pleural effusion bilaterally with mild bibasilar atelectasis. Afebrile, no leukocytosis and hemodynamically stable since admission. COVID/flu/RSV negative. Urine antigens negative. Sputum culture negative. Empirically treated with IV ceftriaxone and azithromycin on admission but given negative workup, discontinued on 04/13. 6. Acute on chronic debility ? PT/OT/case management following. Worsening weakness from baseline likely multifactorial from poor p.o. intake, possible pneumonia and cancer with worsening metastatic disease. Lives at home with . Planning for SNF on discharge as noted above. Chronic medical conditions: ? Obesity: BMI 38 on admit. Complicates hospital course, care and prognosis. ? Type 2 diabetes mellitus: Home regimen of glimepiride and empagliflozin. Hold home meds, will treat with sliding scale insulin with meals while inpatient. ? Hypertension: Holding home lisinopril given CARLOS as noted above. ? Hyperlipidemia: Continue home Zetia. ? BPH with obstructive symptoms: Continue home Flomax. ? History of gout: Continue home allopurinol at reduced dose given CARLOS. DVT prophylaxis: Heparin subcu CODE STATUS: Full code, verified Expected disposition: SNF, 1 to 2 days Total clinical time spent by myself addressing the patient's medical issues, reviewing all the data, and collaborating with patient's care team: 35 minutes. Charges/Coding Visit Charges Inpatient E&M: 16552 Subs Hosp L2
--- NOTE | 2024-04-15 12:49 | CASEMGMT ---
MARY met with patient and his family. Their next 3 choices are: [facility], [facility], and [facility]. MARY asked Jodi to please send a referral to [facility]. Viviana SNOW
--- NOTE | 2024-04-15 12:57 | CASEMGMT ---
Addendum entered by Jodi Jacobs 04/15/24 16:07: [place] has accepted patient. Covid test requested day of discharge. Jodi Jacobs DC Planning Asst. Addendum entered by Jodi Jacobs 04/15/24 14:06: Requested admission order sent to [place] via [facility]. Jodi Jacobs DC Planning Asst. Original Note: Discharge Planning Referral sent to [place] via [facility]. Jodi Jacobs DC Planning Asst.
--- NOTE | 2024-04-15 15:38 | PN.RENAL_ITS ---
Subjective Subjective Follow-up on acute kidney injury on CKD 3B to 4. He is doing better overall, and the daughter at bedside. Patient feels good, hoping for discharge on Saturday. Started to eat. Objective Data Objective Data Vital Signs: Vital Signs Temp Pulse Resp BP Pulse Ox O2 Del Method 97.6 F L 84 18 114/62 93 Room Air 04/15/24 09:40 04/15/24 14:26 04/15/24 14:26 04/15/24 09:40 04/15/24 09:40 04/15/24 14:00 Oxygen Delivery Method Room Air Weight: 110.8 kg Body Mass Index (BMI) 38.2 Intake & Output: Intake and Output for Last 24 Hours 04/13/24 04/14/24 04/15/24 23:59 23:59 23:59 Intake Total 1200 / 1350 2454.17 / 2554.17 2155 / 2155 Output Total 430 / 730 1800 / 2100 1400 / 1400 Balance 770 / 620 654.17 / 454.17 755 / 755 Lab / Micro Data Attestation: I reviewed the patient's lab results. 04/14/24 14:50 04/15/24 04:23 Labs: Laboratory Results - last 24 hr 04/14/24 17:17: POC Glucose 253 H 04/14/24 21:20: POC Glucose 276 H 04/15/24 04:23: Sodium 130 L, Potassium 5.3 H, Chloride 103, Carbon Dioxide 19.0 L, Anion Gap 8, BUN 26 H, Creatinine 2.45 H, Estim Creat Clear Calc 27.14, Est GFR (MDRD) Af Amer 33 L, Est GFR (MDRD) Non-Af 27 L, BUN/Creatinine Ratio 10.6, Glucose 230 H, Calcium 9.1 04/15/24 06:32: POC Glucose 192 H 04/15/24 11:31: POC Glucose 246 H Micro: Microbiology 04/11/24 17:36 Sputum, Expectorated/Coughed Gram Stain - Final 04/11/24 17:36 Sputum, Expectorated/Coughed Respiratory Culture - Final Mixed normal respiratory celeste. No Streptococcus pneumoniae, beta-hemolytic Streptococcus or Staphylococcus aureus isolated. 04/11/24 10:21 Urine, Clean Catch Urine Culture - Final Culture exhibits no growth. 08/03/24 10:21 Urine, Clean Catch Legionella Antigen - Final 04/11/24 10:21 Urine, Clean Catch Streptococcus pneumoniae Antigen (M - Final 04/11/24 10:21 Mucosa - Nasopharyngeal SARS-CoV-2, Influenza & RSV (PCR) - Final Physical Exam Const alert, oriented x3 and no apparent distress General Appearance: well developed Orientation / Consciousness: oriented to person and oriented to place Nutritional Appearance: obese HEENT normocephalic Head and Scalp: atraumatic Neck no lymphadenopathy Resp no use of accessory muscles Cardio regular rate GI non-tender Auscultation: normoactive bowel sounds Palpation: soft Skin no rashes or lesions noted Neuro Sensorium / Orientation: awake and alert Psych cooperative Assessment & Plan Assessment/Plan (1) CARLOS (acute kidney injury): PLAN: Creatinine is a little bit better today with volume expansion, avoiding nephrotoxins. He is not acidotic, he is normokalemic, and he does not appear to be fluid overloaded. 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
[2024-04-15 18:06] LABS: Bedside Glucose 257 mg/dL (74-106)
[2024-04-15] MEDS: Tamsulosin HCl 0.4 MG Capsule PO (22:11)
[2024-04-15] MEDS: MELATONIN 3 MG TABLET PO (22:18)
[2024-04-15 23:25] LABS: Bedside Glucose 224 mg/dL (74-106)
[2024-04-16] VITALS (8 sets, daily range): BP systolic 121–160; BP diastolic 64–79; PULSE 65–85; RESP 16–19; TEMP 35.6–36.6; O2SAT 92–98
[2024-04-16] MEDS: 0.9% Normal Saline (1000mL) 1,000 ML 50 ML IV ×2 (04:47→22:14)
[2024-04-16 06:44] LABS: Hematocrit 30.6 % (40-54); Hemoglobin 10.1 g/dL (13.0-16.5); Mean Corpuscular Hgb 30.3 pg (27.0-32.0); Mean Corpuscular Volume 91.9 fL (80-94); Mean Platelet Vol. 9.2 fl (6.2-12.0); Platelet Count 237 K/mm3 (150-450); RBC Distribution Width CV 14.8 % (11.6-14.6); RBC Distribution Width SD 49.6 fl (35.1-43.9); Red Blood Count 3.33 M/mm3 (4.6-6.2); White Blood Count 16.8 K/mm3 (4.4-11.0)
[2024-04-16] MEDS: Insulin Lispro 100 UNIT/ML INSULN.PEN SC ×4 (06:49→22:13)
[2024-04-16 07:12] LABS: Bedside Glucose 174 mg/dL (74-106)
[2024-04-16 07:14] LABS: Anion Gap 7 (5-15); BUN 36 mg/dL (7-18); BUN/Creat Ratio 16.5 RATIO (10-20); Calcium,Total 8.7 mg/dL (8.5-10.1); Chloride 105 mmol/L (98-107); Creatinine, Serum 2.18 mg/dL (0.70-1.30); EST Glomerular Filtration Rate 31 mL/min (>60); Est Glom Filt Rate - Afr Amer 37 mL/min (>60); Glucose 181 mg/dL (74-106); Potassium 5.4 mmol/L (3.5-5.1); Sodium Level 131 mmol/L (136-145)
[2024-04-16] MEDS: Ipratropium/Albuterol Sulfate 3 ML AMPUL.NEB INHALATION ×2 (08:00→19:57)
[2024-04-16] MEDS: Pyridoxine HCl 100 MG Tablet PO (09:30)
[2024-04-16] MEDS: Cholecalciferol (VIT D3) 25 MCG TABLET (1,000 UNITS) PO (09:30)
[2024-04-16] MEDS: Aspirin 81 MG TAB.CHEW PO (09:30)
[2024-04-16] MEDS: Loratadine 10 MG Tablet PO (09:30)
[2024-04-16] MEDS: Senna/Docusate Sodium 1 Tablet 2 TABLET PO ×2 (09:30→22:13)
[2024-04-16] MEDS: Ezetimibe 10 MG Tablet PO (09:30)
--- NOTE | 2024-04-16 10:49 | CASEMGMT ---
MARY met with patient and his family. MARY let them know [place] accepted patient. They were aware and thanked MARY for updating them. Viviana SNOW
[2024-04-16 12:15] LABS: Bedside Glucose 259 mg/dL (74-106)
--- NOTE | 2024-04-16 12:43 | PN.HOSP_ITS ---
Subjective Subjective Feels better today, no issues overnight. Leukocytosis is due to Decadron Objective Data Objective Data Vital Signs: Vital Signs Temp Pulse Resp BP Pulse Ox O2 Del Method 97.5 F L 85 18 121/64 H 93 Room Air 04/16/24 09:27 04/16/24 09:27 04/16/24 09:27 04/16/24 09:27 04/16/24 09:27 04/16/24 09:27 Oxygen Delivery Method Room Air Weight: 244 lb 4.355 oz Body Mass Index (BMI) 38.2 Intake & Output: Intake and Output for Last 24 Hours 04/15/24 04/16/24 04/17/24 03:59 03:59 03:59 Intake Total 3404.17 / 3404.17 3155 / 3155 1050 / 1050 Output Total 1800 / 1800 2500 / 2500 1000 / 1000 Balance 1604.17 / 1604.17 655 / 655 50 / 50 Lab / Micro Data 04/16/24 06:30 04/16/24 06:30 Labs: Laboratory Results - last 24 hr 04/15/24 16:42: POC Glucose 257 H 04/15/24 22:14: POC Glucose 224 H 04/16/24 06:30: WBC 16.8 H, RBC 3.33 L, Hgb 10.1 L, Hct 30.6 L, MCV 91.9, MCH 30.3, MCHC 33.0, RDW Std Deviation 49.6 H, RDW Coeff of Joe 14.8 H, Plt Count 237, MPV 9.2, Sodium 131 L, Potassium 5.4 H, Chloride 105, Carbon Dioxide 19.0 L , Anion Gap 7, BUN 36 H, Creatinine 2.18 H, Estim Creat Clear Calc 30.50, Est GFR (MDRD) Af Amer 37 L, Est GFR (MDRD) Non-Af 31 L, BUN/Creatinine Ratio 16.5, Glucose 181 H, Calcium 8.7 04/16/24 06:47: POC Glucose 174 H 04/16/24 11:25: POC Glucose 259 H Micro: Microbiology 04/11/24 17:36 Sputum, Expectorated/Coughed Gram Stain - Final 04/11/24 17:36 Sputum, Expectorated/Coughed Respiratory Culture - Final Mixed normal respiratory celeste. No Streptococcus pneumoniae, beta-hemolytic Streptococcus or Staphylococcus aureus isolated. 04/11/24 10:21 Urine, Clean Catch Urine Culture - Final Culture exhibits no growth. 04/11/24 10:21 Urine, Clean Catch Legionella Antigen - Final 04/11/24 10:21 Urine, Clean Catch Streptococcus pneumoniae Antigen (M - Final 04/11/24 10:21 Mucosa - Nasopharyngeal SARS-CoV-2, Influenza & RSV (PCR) - Final Physical Exam Narrative General: Alert, Oriented x3, Cooperative, No apparent distress HEENT: Atraumatic, PERRLA, EOMI, Normocephalic Oral: Moist Mucosa Neck: Supple, No JVD Lungs: Diminished, Normal air movement, No rhonchi, No wheeze, No rales Cardiovascular: Regular rate, Regular Rhythm, Normal S1, Normal S2, No murmurs Abdomen: Soft, Non Tender, Non-Distended, No Hepato-splenomegaly Extremities: No edema, Capillary Refill Less than 3 Seconds Skin: No rashes, No breakdown Musculoskeletal: No Tenderness to Palpation of Joints or Extremities Neurological: No focal neurological deficits, Motor Exam 5/5 strength throughout, Sensory exam intact to light touch and pain Psych/Mental Status: Normal Affect, Appropriate Assessment & Plan Assessment/Plan (1) Metastatic renal cell carcinoma: (2) Generalized weakness: (3) Hyponatremia: (4) Pneumonia: (5) CARLOS (acute kidney injury): PLAN: Plan 1. History of renal cell carcinoma with concern for worsening metastatic disease ? History of renal cell carcinoma s/p right nephrectomy in 2011 with reported recurrence in 2021. Follows with Dr. Feliciano with [facility]. Currently on immunotherapy with Opdivo, patient and family declined chemotherapy when cancer recurred. CT chest abdomen pelvis without contrast on admit showed large space-occupying liver lesions, peritoneal carcinomatosis involving the greater omentum with small volume ascites, 5 mm left upper lobe pulmonary nodule, and subcutaneous right lateral abdominal wall muscle lesion all concerning for worsening metastatic disease. Discussed over the phone with oncology on 04/13; high concern that patient could have adrenal and/or kidney injury due to immunotherapy. Random cortisol level was low at 2. Aldosterone level pending. Started on IV Decadron 2 mg twice daily on 04/14 and patient has had significant improvement in energy level and appetite since then. Will finish 4 doses of IV Decadron on 04/15 and de-escalate to p.o. Decadron 2 mg daily on 04/16. Planning for SNF on discharge with outpatient oncology follow-up shortly thereafter for further discussion regarding cancer treatment options. Will likely be medically ready for discharge to SNF on 04/16-04/17. 04/16/2024: Awaiting pre-CERT, there is some concern for possible adrenal insufficiency secondary to chemotherapy, he had significant improvement with Decadron which was converted to p.o. today, will continue 2. CARLOS on CKD4 ? Nephrology following. Creatinine 2.74 on admit. Baseline creatinine appears to be around 2.1-2.2 per most recent [facility] notes. Renal/bladder ultrasound on admit with no hydronephrosis or acute urinary retention. Suspected that CARLOS is multifactorial from hypotension, poor p.o. intake and possible infection. Unfortunately, creatinine remained stable with significant IV fluid resuscitation. Now with slight improvement after starting IV steroids, most recent creatinine 2.45 on 04/15. Continue to monitor BMP and urine output daily. Holding home lisinopril. 04/16/2024: Renal function is slightly improved today to 2.18 3. Hyponatremia?resolved ? Sodium 128 on admit, baseline appears to be normal. Suspect due to recent poor p.o. intake and dehydration along with possible pneumonia. However, oncology also had concerns for a possible type IV RTA secondary to immunotherapy given low sodium and high potassium. Cortisol low, aldosterone pending as above. Sodium remaining stable ~127-130. Nephrology following as above. Continue to monitor sodium daily. 4. Hyperkalemia ? Potassium 5.1 on admit, has remained stable around 5.1-5.7. Most recent potassium 5.3 on 04/15. Presumed secondary to CARLOS. No specific hyperkalemia treatment indicated, continue steroids as above. Continue to monitor potassium daily. 5. Concern for community-acquired pneumonia ? Presented with productive cough for several days prior to admission. Chest x- ray on admit with bibasilar infiltrates concerning for pneumonia. CT chest showed minimal pleural effusion bilaterally with mild bibasilar atelectasis. Afebrile, no leukocytosis and hemodynamically stable since admission. COVID/flu/RSV negative. Urine antigens negative. Sputum culture negative. Empirically treated with IV ceftriaxone and azithromycin on admission but given negative workup, discontinued on 04/13. 6. Acute on chronic debility ? PT/OT/case management following. Worsening weakness from baseline likely multifactorial from poor p.o. intake, possible pneumonia and cancer with worsening metastatic disease. Lives at home with . Planning for SNF on discharge as noted above. Chronic medical conditions: ? Obesity: BMI 38 on admit. Complicates hospital course, care and prognosis. ? Type 2 diabetes mellitus: Home regimen of glimepiride and empagliflozin. Hold home meds, will treat with sliding scale insulin with meals while inpatient. ? Hypertension: Holding home lisinopril given CARLOS as noted above. ? Hyperlipidemia: Continue home Zetia. ? BPH with obstructive symptoms: Continue home Flomax. ? History of gout: Continue home allopurinol at reduced dose given CARLOS. DVT: Heparin Charges/Coding Visit Charges Inpatient E&M: 14650 Subs Hosp L2
--- NOTE | 2024-04-16 13:53 | PN.RENAL_ITS ---
Subjective Subjective Sitting in chair. No overnight events. Family at bedside. Objective Data Objective Data Vital Signs: Vital Signs Temp Pulse Resp BP Pulse Ox O2 Del Method 97.5 F L 85 18 121/64 H 93 Room Air 04/16/24 09:27 04/16/24 09:27 04/16/24 09:27 04/16/24 09:27 04/16/24 09:27 04/16/24 09:27 Oxygen Delivery Method Room Air Weight: 110.8 kg Body Mass Index (BMI) 38.2 Intake & Output: Intake and Output for Last 24 Hours 04/14/24 04/15/24 04/16/24 23:59 23:59 23:59 Intake Total 2454.17 / 2554.17 2655 / 3255 2650 / 2650 Output Total 1800 / 2100 2200 / 2800 1600 / 1600 Balance 654.17 / 454.17 455 / 455 1050 / 1050 Lab / Micro Data 04/16/24 06:30 04/16/24 06:30 Labs: Laboratory Results - last 24 hr 04/15/24 16:42: POC Glucose 257 H 04/15/24 22:14: POC Glucose 224 H 04/16/24 06:30: WBC 16.8 H, RBC 3.33 L, Hgb 10.1 L, Hct 30.6 L, MCV 91.9, MCH 30.3, MCHC 33.0, RDW Std Deviation 49.6 H, RDW Coeff of Joe 14.8 H, Plt Count 237, MPV 9.2, Sodium 131 L, Potassium 5.4 H, Chloride 105, Carbon Dioxide 19.0 L , Anion Gap 7, BUN 36 H, Creatinine 2.18 H, Estim Creat Clear Calc 30.50, Est GFR (MDRD) Af Amer 37 L, Est GFR (MDRD) Non-Af 31 L, BUN/Creatinine Ratio 16.5, Glucose 181 H, Calcium 8.7 04/16/24 06:47: POC Glucose 174 H 04/16/24 11:25: POC Glucose 259 H Micro: Microbiology 04/11/24 17:36 Sputum, Expectorated/Coughed Gram Stain - Final 04/11/24 17:36 Sputum, Expectorated/Coughed Respiratory Culture - Final Mixed normal respiratory celeste. No Streptococcus pneumoniae, beta-hemolytic Streptococcus or Staphylococcus aureus isolated. 04/11/24 10:21 Urine, Clean Catch Urine Culture - Final Culture exhibits no growth. 04/11/24 10:21 Urine, Clean Catch Legionella Antigen - Final 04/11/24 10:21 Urine, Clean Catch Streptococcus pneumoniae Antigen (M - Final 04/11/24 10:21 Mucosa - Nasopharyngeal SARS-CoV-2, Influenza & RSV (PCR) - Final Physical Exam Narrative Alert and oriented x 3, no apparent distress S1, S2, RRR Lung sounds clear anteriorly and posteriorly Abdomen soft, nontender Nonpitting edema bilateral lower legs and feet Assessment & Plan Assessment/Plan (1) CARLOS (acute kidney injury): PLAN: - CARLOS superimposed on CKD stage IV; baseline creatinine ranging around 2.1 mg/dL. Overall renal function is stable and has improved. Creatinine peaked 2.7 and today creatinine is 2.18. Patient is nonoliguric. Volume status appears near euvolemic. Continue off lisinopril until seen by his [facility] nephrology team. Potassium mildly elevated at 5.4. Reviewed with patient and his family importance of following low potassium diet. Okay for discharge per renal when cleared by primary team. (2) CKD (chronic kidney disease) stage 4, GFR 15-29 ml/min:
[2024-04-16 16:48] LABS: Bedside Glucose 173 mg/dL (74-106)
[2024-04-16] MEDS: Tamsulosin HCl 0.4 MG Capsule PO (22:13)
[2024-04-16 23:37] LABS: Bedside Glucose 238 mg/dL (74-106)
[2024-04-17 04:18] VITALS: BP 156/71; PULSE 70; RESP 18; TEMP 36.2; O2SAT 94
[2024-04-17 07:08] LABS: Bedside Glucose 123 mg/dL (74-106)
[2024-04-17] MEDS: Ipratropium/Albuterol Sulfate 3 ML AMPUL.NEB INHALATION (07:58)
[2024-04-17 09:20] VITALS: BP 158/62; PULSE 83; RESP 18; TEMP 36.6; O2SAT 94
[2024-04-17] MEDS: Loratadine 10 MG Tablet PO (09:21)
[2024-04-17] MEDS: Ezetimibe 10 MG Tablet PO (09:21)
[2024-04-17] MEDS: Pyridoxine HCl 100 MG Tablet PO (09:21)
[2024-04-17] MEDS: Cholecalciferol (VIT D3) 25 MCG TABLET (1,000 UNITS) PO (09:21)
[2024-04-17] MEDS: Aspirin 81 MG TAB.CHEW PO (09:21)
--- NOTE | 2024-04-17 09:40 | PCM.TXEXTCAR ---
Diet Diet Order/Speech Therapy: 04/14/24 11:32 Diet: Sodium Restricted (MOD) Food consistency:: Regular Liquid Consistency:: Regular/Thin Dietary Modifications:: Consistent Carbohydrate Potassium Restricted Type of Dietary Supplement:: Nepro Diet Comments: 240mL nepro w/ breakfast and dinner tray Routine Orders/Code Status Routine Lab Work: CBC and BMP Code Status: Full Code Therapies Physical Therapy: Eval and Treat Occupational Therapy: Eval and Treat Problem/Diagnosis (1) CARLOS (acute kidney injury): Status: Acute Code(s): N17.9 - Acute kidney failure, unspecified (2) CKD (chronic kidney disease) stage 4, GFR 15-29 ml/min: Status: Chronic Code(s): N18.4 - Chronic kidney disease, stage 4 (severe) Plan 1. History of renal cell carcinoma with concern for worsening metastatic disease ? History of renal cell carcinoma s/p right nephrectomy in 2011 with reported recurrence in 2021. Follows with Dr. Feliciano with [facility]. Currently on immunotherapy with Opdivo, patient and family declined chemotherapy when cancer recurred. CT chest abdomen pelvis without contrast on admit showed large space-occupying liver lesions, peritoneal carcinomatosis involving the greater omentum with small volume ascites, 5 mm left upper lobe pulmonary nodule, and subcutaneous right lateral abdominal wall muscle lesion all concerning for worsening metastatic disease. Discussed over the phone with oncology on 04/13; high concern that patient could have adrenal and/or kidney injury due to immunotherapy. Random cortisol level was low at 2. Aldosterone level pending. Started on IV Decadron 2 mg twice daily on 04/14 and patient has had significant improvement in energy level and appetite since then. Will finish 4 doses of IV Decadron on 04/15 and de-escalate to p.o. Decadron 2 mg daily on 04/16. Planning for SNF on discharge with outpatient oncology follow-up shortly thereafter for further discussion regarding cancer treatment options. Will likely be medically ready for discharge to SNF on 04/16-04/17. 04/16/2024: Awaiting pre-CERT, there is some concern for possible adrenal insufficiency secondary to chemotherapy, he had significant improvement with Decadron which was converted to p.o. today, will continue 2. CARLOS on CKD4 ? Nephrology following. Creatinine 2.74 on admit. Baseline creatinine appears to be around 2.1-2.2 per most recent [facility] notes. Renal/bladder ultrasound on admit with no hydronephrosis or acute urinary retention. Suspected that CARLOS is multifactorial from hypotension, poor p.o. intake and possible infection. Unfortunately, creatinine remained stable with significant IV fluid resuscitation. Now with slight improvement after starting IV steroids, most recent creatinine 2.45 on 04/15. Continue to monitor BMP and urine output daily. Holding home lisinopril. 04/16/2024: Renal function is slightly improved today to 2.18 3. Hyponatremia?resolved ? Sodium 128 on admit, baseline appears to be normal. Suspect due to recent poor p.o. intake and dehydration along with possible pneumonia. However, oncology also had concerns for a possible type IV RTA secondary to immunotherapy given low sodium and high potassium. Cortisol low, aldosterone pending as above. Sodium remaining stable ~127-130. Nephrology following as above. Continue to monitor sodium daily. 4. Hyperkalemia ? Potassium 5.1 on admit, has remained stable around 5.1-5.7. Most recent potassium 5.3 on 04/15. Presumed secondary to CARLOS. No specific hyperkalemia treatment indicated, continue steroids as above. Continue to monitor potassium daily. 5. Concern for community-acquired pneumonia ? Presented with productive cough for several days prior to admission. Chest x-ray on admit with bibasilar infiltrates concerning for pneumonia. CT chest showed minimal pleural effusion bilaterally with mild bibasilar atelectasis. Afebrile, no leukocytosis and hemodynamically stable since admission. COVID/flu/RSV negative. Urine antigens negative. Sputum culture negative. Empirically treated with IV ceftriaxone and azithromycin on admission but given negative workup, discontinued on 04/13. 6. Acute on chronic debility ? PT/OT/case management following. Worsening weakness from baseline likely multifactorial from poor p.o. intake, possible pneumonia and cancer with worsening metastatic disease. Lives at home with . Planning for SNF on discharge as noted above. Chronic medical conditions: ? Obesity: BMI 38 on admit. Complicates hospital course, care and prognosis. ? Type 2 diabetes mellitus: Home regimen of glimepiride and empagliflozin. Hold home meds, will treat with sliding scale insulin with meals while inpatient. ? Hypertension: Holding home lisinopril given CARLOS as noted above. ? Hyperlipidemia: Continue home Zetia. ? BPH with obstructive symptoms: Continue home Flomax. ? History of gout: Continue home allopurinol at reduced dose given CARLOS. DVT: Heparin Allergies/Procedures Done in Hospital Allergies aspirin Allergy (Verified 04/10/21 09:10) Rash atorvastatin calcium (From Lipitor) Allergy (Verified 04/10/21 09:10) Other finasteride Allergy (Verified 04/10/21 09:10) Rash ibuprofen (From Motrin) Allergy (Verified 04/10/21 09:10) Swelling simvastatin (From Zocor) Allergy (Verified 04/10/21 09:10) Other sulfamethoxazole (From Bactrim) Allergy (Verified 04/10/21 09:10) Unknown trimethoprim (From Bactrim) Allergy (Verified 04/10/21 09:10) Unknown Type of Care/Length of Stay Estimated LOS: Convalescent Care Less Than 30 days Type of Care Needed: Skilled Rehab Potential: Fair Prognosis: Fair Additional Orders/Day of Discharge Day of Discharge: 04/17/24 Dietary and Speech Recommendations Dietitian Recommendations/Changes: Will adjust diet to consistent carbohydrate (no caloric restriction)/sodium-restricted due to CKD. Will add 240mL PO Nepro carb steady w/ breakfast and dinner as tolerated. Monitor need for further renal diet restrictions as indicated. Discharge Plan Admission Admit Date/Time: 04/11/24 12:05 Attending Provider: Galo Hernandez Primary Care Provider: Isai Pedersen Consulting Providers: Leonardo Seymour; Akbar Disla Discharge Orders/Prescriptions Prescriptions: New dexamethasone 0.5 mg Tablet 2 mg PO BREAKFAST Qty: 0 0RF Continued allopurinol 100 MG tablet 100 mg PO DAILYCM tamsulosin 0.4 MG capsule 0.8 mg PO QHS pyridoxine (vitamin B6) 100 MG tablet 100 mg PO DAILY ezetimibe 10 MG tablet 10 mg PO DAILY Centrum Silver 1 EACH tablet 1 ea PO DAILY cholecalciferol (vitamin D3) 1,000 UNIT tablet 1,000 unit PO DAILY loratadine [Claritin] 10 mg Tablet 10 mg PO DAILY Jardiance 25 mg tablet 25 mg PO DAILY glimepiride 2 mg tablet 2 mg PO DAILY aspirin 81 mg tablet,chewable 1 tab PO DAILY Held lisinopril 10 mg Tablet 10 mg PO QHS Hold Instructions: Resume on 04/24/24. Referrals / Follow Up: Isai Pedersen MD [Primary Care Provider] - Disposition Disposition (needs filled in before D/C Order can be placed): Assisted Facility
[2024-04-17 09:41] LABS: Absolute Lymphocyte Count 5.73 X10^3/uL (0.83-4.51); Absolute Neutrophil Count 10.1 X10^3/uL (2.0-7.7); Basophil# 0.03 X10^3/uL; Basophil% 0.2 % (0-1); Eosinophil# 0.04 X10^3/uL; Eosinophils% 0.2 % (0-5); Hematocrit 33.8 % (40-54); Hemoglobin 11.1 g/dL (13.0-16.5); Lymphocyte # 5.73 X10^3/ul (0.83-4.51); Mean Corp Hgb Conc 32.8 g/dL (32-36); Mean Corpuscular Hgb 30.3 pg (27.0-32.0); Mean Corpuscular Volume 92.3 fL (80-94); Mean Platelet Vol. 8.7 fl (6.2-12.0); Monocyte# 0.81 X10^3/uL; Monocyte% 4.8 % (0-10); NRBC Flagged by Analyzer 0 % (0-5); Neutrophil # 10.14 X10^3/uL (2.7-7.7); Neutrophil % 60.1 % (47-70); POSITIVE DIFFERENTIAL YES; POSITIVE MORPHOLOGY YES; Platelet Count 259 K/mm3 (150-450); RBC Distribution Width CV 15.4 % (11.6-14.6); RBC Distribution Width SD 51.7 fl (35.1-43.9); Red Blood Count 3.66 M/mm3 (4.6-6.2); White Blood Count 16.9 K/mm3 (4.4-11.0)
[2024-04-17 09:42] LABS: Differential Indicated SCAN CRITERIA MET
[2024-04-17 10:29] LABS: Anion Gap 8 (5-15); BUN 43 mg/dL (7-18); BUN/Creat Ratio 22.2 RATIO (10-20); Calcium,Total 8.9 mg/dL (8.5-10.1); Chloride 112 mmol/L (98-107); Creatinine, Serum 1.94 mg/dL (0.70-1.30); EST Glomerular Filtration Rate 35 mL/min (>60); Est Glom Filt Rate - Afr Amer 43 mL/min (>60); Estimated Creatinine Clearance 34.27 ml/min; Glucose 133 mg/dL (74-106); Potassium 4.8 mmol/L (3.5-5.1); Sodium Level 137 mmol/L (136-145)
--- NOTE | 2024-04-17 10:30 | CASEMGMT ---
Patient is ready for discharge to [place] today. SW completed a 7000 in Takes system. Plan: d/c to [facility] under skilled level of care on a convalescent stay. Physicians will transport patient. Viviana SNOW
[2024-04-17 10:46] VITALS: BP 158/62; PULSE 83; RESP 18; TEMP 36.6; O2SAT 94
--- NOTE | 2024-04-17 10:49 | CASEMGMT ---
MARY met with patient and his family. They were aware patient will be discharged today. MARY explained that transport can be arranged, but it will not be covered by insurance. Family has elected to transport patient themselves. MARY notified RN and will notify d/c logistics and planning manager Lori. Viviana Juarez [employer] EDY
--- NOTE | 2024-04-17 11:28 | CASEMGMT ---
Discharge Planning Discharge orders, signed med list, Covid results, and transport time sent to [facility] via [facility]. Patients family will tranport patient after lunch. Nursing and SW updated. Jodi Jacobs DC Planning Asst.
[2024-04-17] MEDS: Insulin Lispro 100 UNIT/ML INSULN.PEN SC (11:35)
[2024-04-17] MEDS: 0.9% Saline Lock 10 ML Syringe IV (11:52)
[2024-04-17 11:56] LABS: Bedside Glucose 166 mg/dL (74-106)
--- NOTE | 2024-04-17 12:10 | NURSING ---
Report called to nurse Yan for pt to be d/c to [place].
--- NOTE | 2024-04-17 15:40 | DS.PCM_ITS ---
Providers Date of Admission: 04/11/24 Primary Care Physician: Dr. Isai Pedersen MD Consultations 04/13/24 07:36 Consult: Nephrology Routine Consulting Provider: Leonardo Seymour Reason for Consult: CARLOS on CKD EMERGENT Consult: No MD Notified: Yes Date Notified: 04/13/24 Time Notified: 07:36 Method of Notification: Answering Service Reason For Visit: CAP, CARLOS W/ DEHYDRATION, WEAKNESS Diagnosis Discharge Diagnosis (1) CARLOS (acute kidney injury): Status: Acute Code(s): N17.9 - Acute kidney failure, unspecified (2) CKD (chronic kidney disease) stage 4, GFR 15-29 ml/min: Status: Chronic Code(s): N18.4 - Chronic kidney disease, stage 4 (severe) Medications at Discharge Home Medications allopurinol 100 mg tablet 100 mg PO DAILYCM Gout 03/18/15 ezetimibe 10 mg tablet 10 mg PO DAILY Cholesterol 03/18/15 pcioavpp-hqh-zytio acid 0.4 mg-lycopene 300 mcg-lutein 250 mcg tablet (Centrum Silver) 1 ea PO DAILY Supplement 03/18/15 pyridoxine (vitamin B6) 100 mg tablet 100 mg PO DAILY Supplement 03/18/15 tamsulosin 0.4 mg capsule 0.8 mg PO QHS Urinary Retention 03/18/15 cholecalciferol (vitamin D3) 25 mcg (1,000 unit) tablet 1,000 unit PO DAILY Supplement 08/25/20 lisinopril 10 mg tablet 10 mg PO QHS BP 04/10/21 loratadine 10 mg tablet (Claritin) 10 mg PO DAILY Allergies 04/10/21 aspirin 81 mg chewable tablet 1 tab PO DAILY prevention 04/11/24 empagliflozin 25 mg tablet (Jardiance) 25 mg PO DAILY diabetes 04/11/24 glimepiride 2 mg tablet 2 mg PO DAILY diabetes 04/11/24 dexamethasone 0.5 mg tablet 2 mg (4 x 0.5 mg) PO BREAKFAST #0 tabs 04/17/24 Hospital Course Operations None Procedures None Summary of Care Provided Minutes Spent on Discharge: 33 Hospital Course: Per HPI: KIYA NUNEZ, is a 84 M who presented to [facility] ED on 04/11/2024 with worsening generalized weakness and productive cough. Patient has history of renal cell carcinoma s/p right nephrectomy in 2011 with cancer recurrence in 2021, follows with Dr. Feliciano with the [facility]. Patient family declined chemotherapy when cancer recurred and he instead was started on immunotherapy. He was on Keytruda for about 4 doses but had side effects, so he was then switched to Opdivo (nivolumab). Unclear how long he has been on this but has been tolerating this without issue until recently. Receives injections every 3 weeks but skipped his last dose that was due on 04/02 due to not feeling well. Patient follows with [facility] nephrology as well and saw them in the office yesterday. They noted there that his blood pressure was low and recommended that he cut his lisinopril dosing in half. They also damien labs but patient was not aware of the results prior to coming in today. In the ED, patient was found to have worsening kidney function with creatinine 2.74, up from baseline around 1.4-1.7. Also found to have a low sodium of 128. Chest x-ray showed bibasilar pulmonary densities concerning for atelectasis versus pneumonia. COVID/flu/RSV were negative. Given CARLOS, hyponatremia and concern for pneumonia with worsening weakness, hospitalist was contacted for admission. I saw the patient at bedside in the ED, and daughter present. Patient was somewhat fatigued appearing but otherwise sitting up comfortably in bed, conversing normally, in no acute distress. Patient lives at home with his and typically has good functional status at baseline. However, he has had more difficulty doing things for himself around the house over the past several days due to fatigue and worsening weakness. He has had a mild cough with greenish sputum production over the past several days. Has had minimal appetite over that time and oral intake has been decreased. Patient also notes that his abdomen has felt more full recently. Has history of constipation and bowel movements have been less frequent recently so he attributes the abdominal fullness to this. He denies any fevers or chills. Denies any chest pain. Denies any shortness of breath at rest. No other acute concerns at this time. Hospital Course: 1. History of renal cell carcinoma with concern for worsening metastatic disease ? History of renal cell carcinoma s/p right nephrectomy in 2011 with reported recurrence in 2021. Follows with Dr. Feliciano with [facility] Oncology. Currently on immunotherapy with Opdivo, patient and family declined chemotherapy when cancer recurred. CT chest abdomen pelvis without contrast on admit showed large space-occupying liver lesions, peritoneal carcinomatosis involving the greater omentum with small volume ascites, 5 mm left upper lobe pulmonary nodule, and subcutaneous right lateral abdominal wall muscle lesion all concerning for worsening metastatic disease. Discussed over the phone with oncology on 04/13; high concern that patient could have adrenal and/or kidney injury due to immunotherapy. Random cortisol level was low at 2. Aldosterone level pending. Started on IV Decadron 2 mg twice daily on 04/14 and patient has had significant improvement in energy level and appetite since then. Will finish 4 doses of IV Decadron on 04/15 and de-escalate to p.o. Decadron 2 mg daily on 04/16. Planning for SNF on discharge with outpatient oncology follow-up shortly thereafter for further discussion regarding cancer treatment options. Will likely be medically ready for discharge to SNF on 04/16-04/17. 04/16/2024: Awaiting pre-CERT, there is some concern for possible adrenal insufficiency secondary to chemotherapy, he had significant improvement with Decadron which was converted to p.o. today, will continue 04/17/2024: Even more alert today than he was yesterday. Feels much better. Renal function is almost back to baseline and potassium is normal at 4.8. I discussed with him the plan for discharge today he expressed understanding of his medicines going to the longterm and would like to go today to start his physical therapy. Will continue with his Decadron at 2 mg daily and will need follow-up with oncology and nephrology determine when to discontinue, there is concern that he has adrenal insufficiency due to the chemotherapy as his cortisol was low however aldosterone is still pending 2. CARLOS on CKD4 ? Nephrology following. Creatinine 2.74 on admit. Baseline creatinine appears to be around 2.1-2.2 per most recent [facility] notes. Renal/bladder ultrasound on admit with no hydronephrosis or acute urinary retention. Suspected that CARLOS is multifactorial from hypotension, poor p.o. intake and possible infection. Unfortunately, creatinine remained stable with significant IV fluid resuscitation. Now with slight improvement after starting IV steroids, most recent creatinine 2.45 on 04/15. Continue to monitor BMP and urine output daily. Holding home lisinopril. 04/16/2024: Renal function is slightly improved today to 2.18 ED 24: Renal function today on the day of discharge is down to 1.94 which is close to his baseline creatinine. Recommend follow-up with [facility] and hold his lisinopril until that follow-up 3. Hyponatremia?resolved ? Sodium 128 on admit, baseline appears to be normal. Suspect due to recent poor p.o. intake and dehydration along with possible pneumonia. However, oncology also had concerns for a possible type IV RTA secondary to immunotherapy given low sodium and high potassium. Cortisol low, aldosterone pending as above. Sodium remaining stable ~127-130. Nephrology following as above. Continue to monitor sodium daily. 4. Hyperkalemia-resolved ? Potassium 5.1 on admit, has remained stable around 5.1-5.7. Most recent potassium 5.3 on 04/15. Presumed secondary to CARLOS. No specific hyperkalemia treatment indicated, continue steroids as above. Continue to monitor potassium daily. 5. Concern for community-acquired pneumonia ? Presented with productive cough for several days prior to admission. Chest x- ray on admit with bibasilar infiltrates concerning for pneumonia. CT chest showed minimal pleural effusion bilaterally with mild bibasilar atelectasis. Afebrile, no leukocytosis and hemodynamically stable since admission. COVID/flu/RSV negative. Urine antigens negative. Sputum culture negative. Empirically treated with IV ceftriaxone and azithromycin on admission but given negative workup, discontinued on 04/13. 6. Acute on chronic debility ? PT/OT/case management following. Worsening weakness from baseline likely multifactorial from poor p.o. intake, possible pneumonia and cancer with worsening metastatic disease. Lives at home with . Planning for SNF on discharge as noted above. Chronic medical conditions: ? Obesity: BMI 38 on admit. Complicates hospital course, care and prognosis. ? Type 2 diabetes mellitus: Home regimen of glimepiride and empagliflozin. Hold home meds, will treat with sliding scale insulin with meals while inpatient. ? Hypertension: Holding home lisinopril given CARLOS as noted above. ? Hyperlipidemia: Continue home Zetia. ? BPH with obstructive symptoms: Continue home Flomax. ? History of gout: Continue home allopurinol Physical Exam Narrative General: Alert, Oriented x3, Cooperative, No apparent distress HEENT: Atraumatic, PERRLA, EOMI, Normocephalic Oral: Moist Mucosa Neck: Supple, No JVD Lungs: Diminished, Normal air movement, No rhonchi, No wheeze, No rales Cardiovascular: Regular rate, Regular Rhythm, Normal S1, Normal S2, No murmurs Abdomen: Soft, Non Tender, Non-Distended, No Hepato-splenomegaly Extremities: No edema, Capillary Refill Less than 3 Seconds Skin: No rashes, No breakdown Musculoskeletal: No Tenderness to Palpation of Joints or Extremities Neurological: No focal neurological deficits, Motor Exam 5/5 strength throughout, Sensory exam intact to light touch and pain Psych/Mental Status: Normal Affect, Appropriate Weight / BMI Weight Weight: 244 lb 4.355 oz Body Mass Index (BMI) 38.2 ABG / Lab / Microbiology Data 04/17/24 09:30 04/17/24 09:30 Laboratory: Laboratory Results - last 24 hr 04/16/24 16:25: POC Glucose 173 H 04/16/24 22:12: POC Glucose 238 H 04/17/24 06:36: POC Glucose 123 H 04/17/24 09:30: WBC 16.9 H, RBC 3.66 L, Hgb 11.1 L, Hct 33.8 L, MCV 92.3, MCH 30.3, MCHC 32.8, RDW Std Deviation 51.7 H, RDW Coeff of Joe 15.4 H, Plt Count 259, MPV 8.7, Immature Gran % (Auto) 0.700, Neut % (Auto) 60.1, Lymph % (Auto) 34.0, Scott % (Auto) 4.8, Eos % (Auto) 0.2, Baso % (Auto) 0.2, Absolute Neuts (auto) 10.1 H, Absolute Lymphs (auto) 5.73 H, Nucleated RBC % 0, Differential Comment COMMENT, Sodium 137, Potassium 4.8, Chloride 112 H, Carbon Dioxide 17.0 L, Anion Gap 8, BUN 43 H, Creatinine 1.94 H, Estim Creat Clear Calc 34.27, Est GFR (MDRD) Af Amer 43 L, Est GFR (MDRD) Non-Af 35 L, BUN/Creatinine Ratio 22.2 H , Glucose 133 H, Calcium 8.9 04/17/24 11:34: POC Glucose 166 H Microbiology: Microbiology 04/17/24 10:35 Nasal Secretion SARS-CoV-2 Antigen (Rapid) - Final 04/11/24 17:36 Sputum, Expectorated/Coughed Gram Stain - Final 04/11/24 17:36 Sputum, Expectorated/Coughed Respiratory Culture - Final Mixed normal respiratory celeste. No Streptococcus pneumoniae, beta-hemolytic Streptococcus or Staphylococcus aureus isolated. 04/11/24 10:21 Urine, Clean Catch Urine Culture - Final Culture exhibits no growth. 04/11/24 10:21 Urine, Clean Catch Legionella Antigen - Final 04/11/24 10:21 Urine, Clean Catch Streptococcus pneumoniae Antigen (M - Final 04/11/24 10:21 Mucosa - Nasopharyngeal SARS-CoV-2, Influenza & RSV (PCR) - Final Meaningful Use Info Meaningful Use Meaningful Use Diagnoses (Choose all that apply): None applicable Ischemic Stroke Statin Dosing Therapy Reference: STATIN DOSE THERAPY REFERENCE: * Patients > 75 years receive moderate or high dose statin therapy. * Patients 75 years or YOUNGER should receive HIGH intensity statin dose unless contraindicated. You will be required to document reason for non-treatment if statin daily dose does not meet guidelines. HIGH DOSE STATIN THERAPY DAILY Atorvastatin > than or = to 40 mg Rosuvastatin > than or = to 20 mg Amlodipine + Atorvastatin > than or = to 2.5/40 mg Ezetimibe + Simvastatin 10/80 mg Simvastatin 80mg Discharge Plan Admission Admit Date/Time: 04/11/24 12:05 Attending Provider: Galo Hernandez Primary Care Provider: Isai Pedersen Consulting Providers: Leonardo Seymour; Akbar Disla Discharge Orders/Prescriptions Prescriptions: New dexamethasone 0.5 mg Tablet 2 mg PO BREAKFAST Qty: 0 0RF Continued allopurinol 100 MG tablet 100 mg PO DAILYCM tamsulosin 0.4 MG capsule 0.8 mg PO QHS pyridoxine (vitamin B6) 100 MG tablet 100 mg PO DAILY ezetimibe 10 MG tablet 10 mg PO DAILY Centrum Silver 1 EACH tablet 1 ea PO DAILY cholecalciferol (vitamin D3) 1,000 UNIT tablet 1,000 unit PO DAILY loratadine [Claritin] 10 mg Tablet 10 mg PO DAILY Jardiance 25 mg tablet 25 mg PO DAILY glimepiride 2 mg tablet 2 mg PO DAILY aspirin 81 mg tablet,chewable 1 tab PO DAILY Held lisinopril 10 mg Tablet 10 mg PO QHS Hold Instructions: Resume on 04/24/24. Referrals / Follow Up: Isai Pedersen MD [Primary Care Provider] - Disposition Disposition (needs filled in before D/C Order can be placed): [facility] Facility Charges/Coding Visit Charges Inpatient E&M: 96639 Disch Hosp >30min
[2024-04-18 10:42] LABS: Aldosterone, Serum 1.8 ng/dL (0.0-30.0)
== END 2024-04-17 13:26 | disposition skilled nursing facility (03) | DRG 683 ==
LOC: ED 12:08 → PCU 12:35
PROVIDERS: Admitting Provider Hospitalist; Emergency Provider Emergency Medicine; PCP Family Medicine; Visit Provider Family Medicine
DX: N17.9 Acute kidney failure, unspecified (principal); E87.1 Hypo-osmolality and hyponatremia; N13.8 Other obstructive and reflux uropathy; C78.6 Secondary malignant neoplasm of retroperitoneum and peritoneum; C64.9 Malignant neoplasm of unspecified kidney, except renal pelvis; E86.0 Dehydration; E11.22 Type 2 diabetes mellitus with diabetic chronic kidney disease; N18.4 Chronic kidney disease, stage 4 (severe); K76.9 Liver disease, unspecified; I12.9 Hypertensive chronic kidney disease with stage 1 through stage 4 chronic kidney disease, or unspecified chronic kidney disease; Z68.38 Body mass index [BMI] 38.0-38.9, adult; E78.5 Hyperlipidemia, unspecified; E87.5 Hyperkalemia; M10.9 Gout, unspecified; R91.1 Solitary pulmonary nodule; Z79.1 Long term (current) use of non-steroidal anti-inflammatories (NSAID); Z79.84 Long term (current) use of oral hypoglycemic drugs; N40.1 Benign prostatic hyperplasia with lower urinary tract symptoms; E66.9 Obesity, unspecified
CPT/HCPCS: 36415; 36591; 71045; 71250; 74176; 76770; 80048; 80053; 81001; 82088; 82533; 82570; 82607; 82728; 82746; 82962; 83036; 83540; 83550; 83930; 83935; 84300; 84484; 85025; 85027; 87070; 87086; 87205; 87426; 87449; 87631; 93005; 94640; 94668; 97162; 97166; 97530; 97535; 99252; 99283; J7030; J7040; J7050; A4216; G0463

== ENCOUNTER 2024-05-14 11:18 | Inpatient (IN) | payer MEDICARE, OTHER, SELFPAY ==
[2024-05-14] VITALS (8 sets, daily range): BP systolic 106–126; BP diastolic 52–65; PULSE 70–78; RESP 14–21; TEMP 36.5–36.9; O2SAT 91–96; BMI 37.0; BMI 37.9
--- NOTE | 2024-05-14 11:48 | EKG12_ITS ---
Test Reason : CHEST PAIN Blood Pressure : / mmHG Vent. Rate : 077 BPM Atrial Rate : 077 BPM P-R Int : 246 ms QRS Dur : 162 ms QT Int : 418 ms P-R-T Axes : 062 -55 045 degrees QTc Int : 473 ms Sinus rhythm with 1st degree A-V block Right bundle branch block Left anterior fascicular block Bifascicular block Confirmed by DEBORA ZAMORA, LISA ([id number]), editor news NAVEED PEARL ([id number]) on 05/18/2024 8:19:51 AM Referred By: Leanne Brown Confirmed By:LISA CAZARES MD
--- NOTE | 2024-05-14 11:50 | EX.ED.DYSGE1 ---
HPI <ZAYNAB Mejia - Last Filed: 05/14/24 13:40> History of Present Illness Chief Complaint: Abn Labs Narrative Narrative: Patient is an 84-year-old male with history of chronic kidney disease, history of renal cell carcinoma that has some metastasis to the lung and liver, hyperlipidemia, hypertension diabetes who has been home from a SNF since April 29, 2024. Per the , the patient is acting similar for when he was first admitted to the hospital. Patient was told to come here secondary to some abnormal laboratory values. There was some concerns for hyponatremia, elevated creatinine. Patient denies any pain, denies any fever chills nausea or vomiting. Patient states he just feels generalized weakness. PFS <ZAYNAB Mejia - Last Filed: 05/14/24 13:40> [facility] Medical History (Updated 05/14/24 @ 14:51 by Debi Arango) Depression GERD (gastroesophageal reflux disease) Kidney stones Kidney disease Obesity due to excess calories Loss of hearing Wears glasses Wears dentures Cancer Diabetes Arthritis Prostate disease High cholesterol Back pain Dietary restriction History of diverticulitis Heartburn Non-smoker Shortness of breath on exertion Leg cramps History of edema History of pain when walking History of stress test Cardiology follow-up encounter Hypertension BRBPR (bright red blood per rectum) GI bleed Home Medications ?Medication ?Instructions ?Recorded ?Last Taken ?Type allopurinol 100 mg tablet 100 mg PO DAILYCM Gout 03/18/15 Unknown History ezetimibe 10 mg tablet 10 mg PO DAILY Cholesterol 03/18/15 Unknown History xzvleyvt-rpd-[id number] acid 0.4 1 ea PO DAILY Supplement 03/18/15 Unknown History mg-lycopene 300 mcg-lutein 250 mcg tablet (Centrum Silver) pyridoxine (vitamin B6) 100 mg 100 mg PO DAILY Supplement 03/18/15 Unknown History tablet tamsulosin 0.4 mg capsule 0.8 mg PO QHS Urinary Retention 03/18/15 Unknown History cholecalciferol (vitamin D3) 25 1,000 unit PO DAILY Supplement 08/25/20 Unknown History mcg (1,000 unit) tablet loratadine 10 mg tablet (Claritin) 10 mg PO DAILY Allergies 04/10/21 Unknown History aspirin 81 mg chewable tablet 1 tab PO DAILY prevention 04/11/24 Unknown History empagliflozin 25 mg tablet 25 mg PO DAILY diabetes 04/11/24 Unknown History (Jardiance) glimepiride 2 mg tablet 2 mg PO DAILY diabetes 04/11/24 Unknown History nut.tx.imp.renal fxn,lac-reduc ml PO TID supplement 05/14/24 Unknown History 0.08 gram-1.8 kcal/mL oral liquid (Nepro Carb Steady) sodium bicarbonate 650 mg tablet mg PO BID 05/14/24 Unknown History hydrocortisone 10 mg tablet 10 mg PO BIDCM #0 tabs 05/17/24 Unknown Rx insulin lispro 100 unit/mL See Protocol subcut TIDAC #0 mL 05/17/24 Unknown Rx subcutaneous pen (Humalog KwikPen (U-100) Insulin) Allergy/AdvReac Type Severity Reaction Status Date / Time aspirin Allergy Rash Verified 05/14/24 11:19 atorvastatin calcium (From Allergy Other Verified 05/14/24 11:19 Lipitor) finasteride Allergy Rash Verified 05/14/24 11:19 ibuprofen (From Motrin) Allergy Swelling Verified 05/14/24 11:19 simvastatin (From Zocor) Allergy Other Verified 05/14/24 11:19 sulfamethoxazole (From Allergy Unknown Verified 05/14/24 11:19 Bactrim) trimethoprim (From Bactrim) Allergy Unknown Verified 05/14/24 11:19 Family History no significant family his Surgical History (Updated 05/14/24 @ 14:50 by Debi Arango) Hx of CABG Status post left knee replacement Hx of colonoscopy Hx of tonsillectomy History of nephrectomy, right History of surgical removal of skin lesion Hx of bursectomy Hx of total shoulder replacement Social History Smoking Status: Never smoker ROS <ZAYNAB Mejia - Last Filed: 05/14/24 13:40> ROS ED ROS Narrative Constitutional: Negative for fever, chills, weight loss. Positive for weakness Eyes: Negative for vision loss, vision change, double vision ENT: Negative for any sore throat, ear pain, congestion Cardiovascular: Negative for any chest pain, tightness, palpitations Respiratory: Negative for any cough, sputum production, hemoptysis, dyspnea, dyspnea on exertion, orthopnea Gastrointestinal: Negative for any abdominal pain, vomiting, diarrhea, constipation, blood in stool, blood in vomit. Positive for nausea : Negative for any urinary frequency, dysuria, retention, blood in urine Muscle skeletal: Negative for any neck pain, back pain Neurological: Negative for any headache, syncope, dizziness Skin: Negative for any rashes, itching, abrasions, lacerations Psychiatric: Negative for any depression, anxiety, stress, suicidal ideation, homicidal ideation Hematologic: Negative for any excessive bruising, easy bleeding EXAM <ZAYNAB Mejia - Last Filed: 05/14/24 13:40> Physical Exam Narrative Exam Narrative: Vital signs reviewed. Patient is alert and orient x 4. I spoke with the patient the patient's . HEET: Head normocephalic atraumatic, TMs clear bilaterally. Posterior pharynx is clear, dry mucous membranes. Nares clear bilaterally. Neck: Supple with no lymphadenopathy or tenderness. No signs of meningismus. Cardiac: Regular rate and rhythm no murmurs gallops or rubs, equal peripheral pulses bilaterally. Respiratory: Lungs clear to auscultation bilaterally. No chest tenderness. Abdomen: Soft, nontender, nondistended. No abdominal bruit or pulsatile masses. No hepatosplenomegaly Extremities: No peripheral edema, no signs of gross trauma or deformity. Active full range of motion of all extremities. Neuro: Cranial nerves II through XII intact, no focal neurological deficits. Skin: Clean dry and intact with no rash, purpura, petechiae, vesicles or pustules. Backs/flank: No CVA tenderness, no midline spinal tenderness, no deformity. Psych: Normal mood and affect. No SI, HI or acute psychosis. Const Vital Signs: 05/14/24 11:18 05/14/24 11:18 05/14/24 13:18 Temperature 98 F Temperature Source Temporal Pulse Rate 78 74 Respiratory Rate 14 21 H Respiratory Effort Short of Breath Respiratory Pattern Normal Blood Pressure 108/64 126/55 H Blood Pressure Mean 78 78 Pulse Ox 96 94 Oxygen Delivery Method Room Air Room Air <Dr. Leanne Brown DO - Last Filed: 05/17/24 22:53> Physical Exam Const Vital Signs: 05/14/24 11:18 05/14/24 11:18 05/14/24 13:18 Temperature 98 F Temperature Source Temporal Pulse Rate 78 74 Respiratory Rate 14 21 H Respiratory Effort Short of Breath Respiratory Pattern Normal Blood Pressure 108/64 126/55 H Blood Pressure Mean 78 78 Pulse Ox 96 94 Oxygen Delivery Method Room Air Room Air [facility] <Jj RamZAYNAB - Last Filed: 05/14/24 13:40> [facility] Lab Data Labs: Laboratory Results - last 24 hr 05/14/24 05/14/24 12:18 12:30 WBC 8.6 RBC 3.64 L Hgb 10.9 L Hct 32.8 L MCV 90.1 MCH 29.9 MCHC 33.2 RDW Std Deviation 48.1 H RDW Coeff of Joe 14.6 Plt Count 185 MPV 9.5 Immature Gran % (Auto) 0.200 Neut % (Auto) 28.5 L Lymph % (Auto) 42.4 H Fountain % (Auto) 8.6 Eos % (Auto) 19.7 H Baso % (Auto) 0.6 Absolute Neuts (auto) 2.5 Absolute Lymphs (auto) 3.65 Nucleated RBC % 0 Sodium 121 L Potassium 4.4 Chloride 90 L Carbon Dioxide 22.0 Anion Gap 9 BUN 22 H Creatinine 2.07 H Estim Creat Clear Calc 31.61 Est GFR (MDRD) Af Amer 40 L Est GFR (MDRD) Non-Af 33 L BUN/Creatinine Ratio 10.6 Glucose 133 H Calcium 9.4 Phosphorus 2.6 Magnesium 2.5 Total Bilirubin 0.70 AST 60 H ALT 38 Alkaline Phosphatase 130 H Troponin I High Sens 11 Total Protein 6.4 Albumin 2.7 L Globulin 3.7 Albumin/Globulin Ratio 0.7 L Lipase 78 H Urine Color Yellow Urine Clarity Clear Urine pH 6.0 Ur Specific Snyder 1.015 Urine Protein 100 H Urine Glucose (UA) 1000 H Urine Ketones Negative Urine Occult Blood 10 H Urine Nitrite Negative Urine Bilirubin Negative Urine Urobilinogen Normal Ur Leukocyte Esterase Negative Urine RBC 0 SEEN Urine WBC 0 SEEN Ur Squamous Epith Cells 0-5 SEEN Urine Bacteria 0 SEEN Urine Mucus 0 SEEN Radiography Diagnostic Testing: Clinical Impression(s) from Imaging Studies Chest X-Ray 05/14/24 12:45 IMPRESSION: Stable mild increased linear markings at the lung bases suggestive of atelectasis. Cardiomegaly. Electronically Signed: Darien Strong MD at 13:01 EDT , EKG EKG shows sinus rhythm with first-degree AV block: Attestation: I personally reviewed and interpreted this EKG as follows: Comments: Sinus rhythm with first-degree AV block, rate 77 bpm, IN interval 246 ms, QRS duration 162 ms, no acute ST elevation, no acute infarct noted. Treatment and Re-Evaluation :: Differential diagnosis includes however is not limited to: Hyponatremia, electrolyte abnormality, dehydration, COVID-19, community-acquired pneumonia, UTI, worsening metastasis Patient is alert and orient x 4, patient does appear dry however vital signs are stable, nontoxic-appearing. Presenting to the emergency department with complaints of weakness, nausea as well as some abnormal lab values. Patient will receive a full electrolyte panel including CMP, CBC, lipase, phosphorus, magnesium. Urinalysis. EKG will be ordered. Two-view chest x-ray as well as COVID-19 test. I will reevaluate the patient's lab values, last lab values in our system was April 17, 2024. All radiologic examinations were read, reviewed by the emergency department attending. From these reads, a plan of care will be put in place. Patient CBC shows no leukocytosis, stable anemia with a hemoglobin of 10.9, patient's sodium was 121, on April 17, 2024 the sodium was 137, this is a significant drop. This could be explaining the patient's weakness, fatigue. Patient's creatinine shows chronic kidney disease with a creatinine of 2.0 which is baseline for the patient. AST was slightly elevated at 60, this is chronic. Lipase was 78. Patient COVID, flu, RSV was negative. Patient will need to be admitted to the hospital. Spoke with Dr. Shan whitfield for admission. <Dr. Leanne Brown, DO - Last Filed: 05/17/24 22:53> [facility] Lab Data Attestation: I reviewed the patient's lab results. Labs: Laboratory Results - last 24 hr 05/14/24 05/14/24 12:18 12:30 WBC 8.6 RBC 3.64 L Hgb 10.9 L Hct 32.8 L MCV 90.1 MCH 29.9 MCHC 33.2 RDW Std Deviation 48.1 H RDW Coeff of Joe 14.6 Plt Count 185 MPV 9.5 Immature Gran % (Auto) 0.200 Neut % (Auto) 28.5 L Lymph % (Auto) 42.4 H Fountain % (Auto) 8.6 Eos % (Auto) 19.7 H Baso % (Auto) 0.6 Absolute Neuts (auto) 2.5 Absolute Lymphs (auto) 3.65 Nucleated RBC % 0 Sodium 121 L Potassium 4.4 Chloride 90 L Carbon Dioxide 22.0 Anion Gap 9 BUN 22 H Creatinine 2.07 H Estim Creat Clear Calc 31.61 Est GFR (MDRD) Af Amer 40 L Est GFR (MDRD) Non-Af 33 L BUN/Creatinine Ratio 10.6 Glucose 133 H Calcium 9.4 Phosphorus 2.6 Magnesium 2.5 Total Bilirubin 0.70 AST 60 H ALT 38 Alkaline Phosphatase 130 H Troponin I High Sens 11 Total Protein 6.4 Albumin 2.7 L Globulin 3.7 Albumin/Globulin Ratio 0.7 L Lipase 78 H Urine Color Yellow Urine Clarity Clear Urine pH 6.0 Ur Specific Snyder 1.015 Urine Protein 100 H Urine Glucose (UA) 1000 H Urine Ketones Negative Urine Occult Blood 10 H Urine Nitrite Negative Urine Bilirubin Negative Urine Urobilinogen Normal Ur Leukocyte Esterase Negative Urine RBC 0 SEEN Urine WBC 0 SEEN Ur Squamous Epith Cells 0-5 SEEN Urine Bacteria 0 SEEN Urine Mucus 0 SEEN Radiography Diagnostic Testing: Clinical Impression(s) from Imaging Studies Chest X-Ray 05/14/24 12:45 IMPRESSION: Stable mild increased linear markings at the lung bases suggestive of atelectasis. Cardiomegaly. Electronically Signed: Darien Strong MD at 13:01 EDT , Treatment and Re-Evaluation :: Differential diagnosis includes however is not limited to: Hyponatremia, electrolyte abnormality, dehydration, COVID-19, community-acquired pneumonia, UTI, worsening metastasis Patient is alert and orient x 4, patient does appear dry however vital signs are stable, nontoxic-appearing. Presenting to the emergency department with complaints of weakness, nausea as well as some abnormal lab values. Patient will receive a full electrolyte panel including CMP, CBC, lipase, phosphorus, magnesium. Urinalysis. EKG will be ordered. Two-view chest x-ray as well as COVID-19 test. I will reevaluate the patient's lab values, last lab values in our system was April 17, 2024. All radiologic examinations were read, reviewed by the emergency department attending. From these reads, a plan of care will be put in place. Patient CBC shows no leukocytosis, stable anemia with a hemoglobin of 10.9, patient's sodium was 121, on April 17, 2024 the sodium was 137, this is a significant drop. This could be explaining the patient's weakness, fatigue. Patient's creatinine shows chronic kidney disease with a creatinine of 2.0 which is baseline for the patient. AST was slightly elevated at 60, this is chronic. Lipase was 78. Patient COVID, flu, RSV was negative. Patient will need to be admitted to the hospital. Spoke with Dr. Darwin whitfield for admission. I have personally performed a face to face assessment of the patient and have reviewed the LELAND Note. I performed a substantive portion of the visit including all aspects of the following. My saldana findings include: History is patient presents to the emergency room for worsening outpatient hyponatremia and increased weakness. Patient does have a history of hyponatremia requiring admission. He was recently discharged from nursing facility and is back home now. Sound like he is drinking a decent amount of free water. Physical exam is unremarkable. Heart regular rate and rhythm, lungs clear to auscultation bilaterally. No significant edema. Is generally weak. Vital signs stable in the emergency room. Sodium is significantly low at 121. This is consistent with his presentation and symptoms. No other significant laboratory values at this time. Patient will be admitted for further treatment of his hyponatremia. Given that he does not have a seizure-like activity and otherwise is stable in the emergency room with no mental status change at this time will defer hypertonic saline. Other additions or changes: [None] Discharge Plan Dx/Rx/DC Orders Clinical Impression: Weakness, Acute hyponatremia, Chronic kidney disease Disposition Disposition: [facility] Discharge Date/Time: 05/14/24 17:15
[2024-05-14] MEDS: 0.9% Normal Saline (500mL Bag) 500 ML 999 ML IV (12:27)
[2024-05-14] MEDS: Ondansetron 4 MG/2 ML Vial IV (12:27)
[2024-05-14 12:35] LABS: Absolute Lymphocyte Count 3.65 X10^3/uL (0.83-4.51); Absolute Neutrophil Count 2.5 X10^3/uL (2.0-7.7); Basophil# 0.05 X10^3/uL; Basophil% 0.6 % (0-1); Eosinophils% 19.7 % (0-5); Hematocrit 32.8 % (40-54); Hemoglobin 10.9 g/dL (13.0-16.5); Lymphocyte # 3.65 X10^3/ul (0.83-4.51); Lymphocyte % 42.4 % (19-41); Mean Corp Hgb Conc 33.2 g/dL (32-36); Mean Corpuscular Hgb 29.9 pg (27.0-32.0); Mean Corpuscular Volume 90.1 fL (80-94); Mean Platelet Vol. 9.5 fl (6.2-12.0); Monocyte# 0.74 X10^3/uL; Monocyte% 8.6 % (0-10); NRBC Flagged by Analyzer 0 % (0-5); Neutrophil # 2.45 X10^3/uL (2.7-7.7); Neutrophil % 28.5 % (47-70); Platelet Count 185 K/mm3 (150-450); RBC Distribution Width CV 14.6 % (11.6-14.6); RBC Distribution Width SD 48.1 fl (35.1-43.9); Red Blood Count 3.64 M/mm3 (4.6-6.2); White Blood Count 8.6 K/mm3 (4.4-11.0)
[2024-05-14 12:42] LABS: Bacteria 0 SEEN /hpf (None Seen); Mucous, Urine 0 SEEN /hpf (<or=2+); Red Blood Cells-Urine 0 SEEN /hpf (0-5); White Blood Cells 0 SEEN /hpf (0-5)
[2024-05-14 12:44] LABS: Color, Urine Yellow (Yellow); Glucose, Dipstick 1000 mg/dl (Normal); Ketone-Dipstick Negative (Negative); Leukocyte Esterase-Dipstick Negative /ul (Negative); Nitrite-Dipstick Negative (Negative); Occult Blood-Urine 10 /ul (Negative); Protein-Dipstick 100 mg/dl (Negative); Specific Gravity, Urine 1.015 (1.002-1.030); Urine Bilirubin Dipstick Negative (Negative); Urine Clarity Clear (Clear); Urine Urobilinogen Normal (Normal)
--- NOTE | 2024-05-14 12:45 | RAD_ITS ---
STUDY: X-RAY CHEST REASON FOR EXAM: Male, 84 years old. Cough. Fatigue. TECHNIQUE: Single AP portable view of the chest. COMPARISON: Comparison is made with prior study dated April 11, 2024. FINDINGS: A right-sided Port-A-Cath is seen with the tip in the right atrium. EKG electrodes are seen. Stable mild increased markings at the lung bases suggestive of atelectasis. There is no demonstrated pleural abnormality. There is moderate cardiac enlargement. Status post aortic valve replacement. Normal mediastinum and abbey. Normal visualized pulmonary arteries. There is atherosclerotic tortuosity of the aortic arch and descending thoracic aorta. There are diffuse degenerative changes of the visualized thoracic spine. Status post right reverse shoulder replacement. There is no demonstrated abnormality of the visualized soft tissue structures of the upper abdomen. RAD/Chest 1 View (Portable) IMPRESSION: Stable mild increased linear markings at the lung bases suggestive of atelectasis. Cardiomegaly. Electronically Signed: Darien Strong MD at 13:01 EDT ,
[2024-05-14 12:48] LABS: Magnesium 2.5 mg/dL (1.6-2.6); Phosphorus 2.6 mg/dL (2.5-4.9)
[2024-05-14 12:49] LABS: ALB/GLOB Ratio 0.7 RATIO (0.9-2.4); AST(SGOT) 60 U/L (15-37); Alanine Aminotransfer ALT/SGPT 38 U/L (16-61); Albumin, Serum 2.7 g/dL (3.2-5.0); Alkaline Phosphatase 130 U/L (45-117); Anion Gap 9 (5-15); BUN 22 mg/dL (7-18); BUN/Creat Ratio 10.6 RATIO (10-20); Calcium,Total 9.4 mg/dL (8.5-10.1); Chloride 90 mmol/L (98-107); Creatinine, Serum 2.07 mg/dL (0.70-1.30); EST Glomerular Filtration Rate 33 mL/min (>60); Est Glom Filt Rate - Afr Amer 40 mL/min (>60); Estimated Creatinine Clearance 31.61 ml/min; Globulin 3.7 g/dL (2.2-4.2); Glucose 133 mg/dL (74-106); Lipase 78 U/L (13-75); Potassium 4.4 mmol/L (3.5-5.1); Protein, Total 6.4 g/dL (6.4-8.2); Sodium Level 121 mmol/L (136-145); Troponin-I HS 11 pg/mL (3.0-78.0)
[2024-05-14 12:51] LABS: Squamous Epithelial Cells - UA 0-5 SEEN /hpf (0-5)
--- NOTE | 2024-05-14 13:11 | HP.PCM.HOS_ITS ---
HPI - General General Date of Admission: 05/14/24 Date of Service: 05/14/24 Chief Complaint: abnormal labs, generalised weakness HPI Narrative KIYA NUNEZ, is a 84 M with an extensive PMH as outlined who was admitted via the ED On 05/14/2024 with a complaint of abnormal labs. He has a history of metastatic renal cancer on immunotherapy and follows with [facility]. HE was recently in the hospital for CARLOS and hyponatremia as well as generalised weakness. He was discharged to SNF from the hospital and recently discharged from SNF to home. HE had been feeling weak and tired and so went to see his concrete worker and labs were done which showed low sodium. Patient's states he is not been eating well though he has been drinking lots of free water and says he drinks up to about 2.5 L daily. He denied any nausea or vomiting, fever or chills but admitted to the generalized weakness which was worsening. He denied any urinary symptoms. His concrete worker called him today and asked him to come to the ED o/a of labs done showing low sodium. Vitals in the ED were BP of 108/64, NJ of 78, RR of 14 and temp of 98F. He was saturating at 96% on room air. CBC showed Hb of 10.9, wbc of 8.6 and platelets of 185. Chemistry showed sodium of 121, potassium of 4.4, chloride of 90 and Cr of 2.07. URinalysis showed no evidence of UTI. . He is being admitted to be managed for acute on chronic hyponatremia and CARLOS on CKD. [facility], LAT[facility] Medical History (Updated 05/14/24 @ 14:51 by Debi Arango) Depression GERD (gastroesophageal reflux disease) Kidney stones Kidney disease Obesity due to excess calories Loss of hearing Wears glasses Wears dentures Cancer Diabetes Arthritis Prostate disease High cholesterol Back pain Dietary restriction History of diverticulitis Heartburn Non-smoker Shortness of breath on exertion Leg cramps History of edema History of pain when walking History of stress test Cardiology follow-up encounter Hypertension BRBPR (bright red blood per rectum) GI bleed Home Medications ?Medication ?Instructions ?Recorded ?Last Taken ?Type allopurinol 100 mg tablet 100 mg PO DAILYCM Gout 03/18/15 Unknown History ezetimibe 10 mg tablet 10 mg PO DAILY Cholesterol 03/18/15 Unknown History vrmwokcq-sdn-rjlzw acid 0.4 1 ea PO DAILY Supplement 03/18/15 Unknown History mg-lycopene 300 mcg-lutein 250 mcg tablet (Centrum Silver) pyridoxine (vitamin B6) 100 mg 100 mg PO DAILY Supplement 03/18/15 Unknown History tablet tamsulosin 0.4 mg capsule 0.8 mg PO QHS Urinary Retention 03/18/15 Unknown History cholecalciferol (vitamin D3) 25 1,000 unit PO DAILY Supplement 08/25/20 Unknown History mcg (1,000 unit) tablet loratadine 10 mg tablet (Claritin) 10 mg PO DAILY Allergies 04/10/21 Unknown History aspirin 81 mg chewable tablet 1 tab PO DAILY prevention 04/11/24 Unknown History empagliflozin 25 mg tablet 25 mg PO DAILY diabetes 04/11/24 Unknown History (Jardiance) glimepiride 2 mg tablet 2 mg PO DAILY diabetes 04/11/24 Unknown History nut.tx.imp.renal fxn,lac-reduc ml PO TID supplement 05/14/24 Unknown History 0.08 gram-1.8 kcal/mL oral liquid (Nepro Carb Steady) sodium bicarbonate 650 mg tablet mg PO BID 05/14/24 Unknown History Allergy/AdvReac Type Severity Reaction Status Date / Time aspirin Allergy Rash Verified 05/14/24 11:19 atorvastatin calcium (From Allergy Other Verified 05/14/24 11:19 Lipitor) finasteride Allergy Rash Verified 05/14/24 11:19 ibuprofen (From Motrin) Allergy Swelling Verified 05/14/24 11:19 simvastatin (From Zocor) Allergy Other Verified 05/14/24 11:19 sulfamethoxazole (From Allergy Unknown Verified 05/14/24 11:19 Bactrim) trimethoprim (From Bactrim) Allergy Unknown Verified 05/14/24 11:19 Family History no significant family his Surgical History (Updated 05/14/24 @ 14:50 by Debi Arango) Hx of CABG Status post left knee replacement Hx of colonoscopy Hx of tonsillectomy History of nephrectomy, right History of surgical removal of skin lesion Hx of bursectomy Hx of total shoulder replacement Social History Smoking Status: Never smoker ROS Constitutional Constitutional: Reports anorexia, fatigue, malaise and weakness; Denies chills or fever(s) Eyes Eyes: Denies change in vision ENT HEENT: Denies dysphagia, headache(s) or sore throat Cardiovascular Cardiovascular: Denies chest pain, dyspnea on exertion, edema, lightheadedness, orthopnea, palpitations, rapid heart rate or syncope Respiratory/Chest Respiratory/Chest: Denies cough, dyspnea, shortness of breath at rest or shortness of breath with exertion Gastrointestinal Gastrointestinal: Denies abdominal pain, constipation, diarrhea, nausea or vomiting Genitourinary Genitourinary: Denies burning urination or dysuria Musculoskeletal Musculoskeletal: Denies arthralgias or joint pain Neurologic Neurologic: Denies confusion, dizziness, focal weakness, headache(s), numbness, paresthesias, seizures or syncope Psychiatric Psychiatric: Denies anxiety or depression Vital Signs Vital Signs Vital Signs: 05/14/24 11:18 05/14/24 11:18 Temperature 98 F Temperature Source Temporal Pulse Rate 78 Respiratory Rate 14 Respiratory Effort Short of Breath Respiratory Pattern Normal Blood Pressure 108/64 Blood Pressure Mean 78 Pulse Ox 96 Oxygen Delivery Method Room Air Weight Weight: 237 lb Body Mass Index (BMI) 37.0 Physical Exam Const alert, oriented x3, no apparent distress and average body habitus Constitutional Narrative: obese General Appearance: cooperative HEENT normocephalic, head/scalp atraumatic and hearing grossly normal bilaterally HEENT Narrative: dry oral mucosa Eyes PERRL, EOMs intact bilaterally and conjunctivae normal Neck no lymphadenopathy and supple Resp normal respiratory effort, no use of accessory muscles and clear to auscultation bilaterally Cardio regular rate, regular rhythm, S1 normal heart sound, S2 normal heart sound and no murmurs GI normal to inspection, nondistended, normoactive bowel sounds, soft to palpation, non-tender and non-distended Extremity normal to inspection, full ROM and no clubbing, cyanosis or edema Neuro oriented x3, CN's II-XII intact bilaterally, moves all extremities and no focal motor deficits Sensorium / Orientation: awake and alert Motor Exam: strength 5/5 throughout Psych affect normal Results Lab / Micro Data 05/14/24 12:18 05/14/24 12:18 Labs: Laboratory Results - last 24 hr 05/14/24 12:18: WBC 8.6, RBC 3.64 L, Hgb 10.9 L, Hct 32.8 L, MCV 90.1, MCH 29.9, MCHC 33.2, RDW Std Deviation 48.1 H, RDW Coeff of Joe 14.6, Plt Count 185, MPV 9.5, Immature Gran % (Auto) 0.200, Neut % (Auto) 28.5 L, Lymph % (Auto) 42.4 H, [place] % (Auto) 8.6, Eos % (Auto) 19.7 H, Baso % (Auto) 0.6, Absolute Neuts (auto) 2.5, Absolute Lymphs (auto) 3.65, Nucleated RBC % 0, Sodium 121 L, Potassium 4.4, Chloride 90 L, Carbon Dioxide 22.0, Anion Gap 9, BUN 22 H, Creatinine 2.07 H, Estim Creat Clear Calc 31.61, Est GFR (MDRD) Af Amer 40 L, Est GFR (MDRD) Non-Af 33 L, BUN/Creatinine Ratio 10.6, Glucose 133 H, Calcium 9.4, Phosphorus 2.6, Magnesium 2.5, Total Bilirubin 0.70, AST 60 H, ALT 38, Alkaline Phosphatase 130 H, Troponin I High Sens 11, Total Protein 6.4, Albumin 2.7 L, Globulin 3.7, Albumin/Globulin Ratio 0.7 L, Lipase 78 H 05/14/24 12:30: Urine Color Yellow, Urine Clarity Clear, Urine pH 6.0, Ur Specific Alexis 1.015, Urine Protein 100 H, Urine Glucose (UA) 1000 H, Urine Ketones Negative, Urine Occult Blood 10 H, Urine Nitrite Negative, Urine Bilirubin Negative, Urine Urobilinogen Normal, Ur Leukocyte Esterase Negative, Urine RBC 0 SEEN, Urine WBC 0 SEEN, Ur Squamous Epith Cells 0-5 SEEN, Urine Bacteria 0 SEEN, Urine Mucus 0 SEEN Imaging Radiology Impression Chest X-Ray 05/14/24 12:45 IMPRESSION: Stable mild increased linear markings at the lung bases suggestive of atelectasis. Cardiomegaly. Electronically Signed: Darien Strong MD at 13:01 EDT , Assessment & Plan Assessment/Plan (1) CARLOS (acute kidney injury): (2) Hyponatremia: PLAN: Plan #Acute on chronic hyponatremia * patient was recently admitted with hyponatremia and hydrated with IVF. * he says he has been drinking a lot of free water and eating a low salt diet. * admit to med surg * get urine osmolality, urine sodium and serum osmolality * start hydrating with IVF NS @ 125cc/hr pending further lab results * check BMP q6hrly with goal of correcting sodium by 6-8mmol/L over 24 hours. * consult nephrology * during his last admission, there was concern that he may be having an adrenal reaction from his immunotherapy, and so he was given dexamethasone. * #Carlos oN CKD IV * CR is 2.07, with a baseline Cr of ~1.94 at time of discharge on 04/17/2024. * Will trend Cr and expect it will improve with hydration. * #History of metastatic renal cancer * follows with [facility]. On immunotherapy treatment * #Type 2 diabetes mellitus * on jardiance and glimepiride. ISS. Accuchecks ACHS * DVT prophylaxis; heparin COde status: DNRCCA no intubaion * Patient and counseled extensively about different types of CODE STATUS including full code, DNR CCA and DNR CCA. * Patient elects to be DNRCCA no intubation. * Total kufg-ig-gzbl time 16 minutes. Charges/Coding Visit Charges Inpatient E&M: 16419 Init Hosp L3 Procedures Hospitalists Procedures: 36903 Advncd Care Plan 30 Min
[2024-05-14] MEDS: 0.9% Normal Saline (1000mL) 1,000 ML 125 ML IV (18:08)
[2024-05-14 18:22] LABS: Bedside Glucose 110 mg/dL (74-106)
[2024-05-14 19:18] LABS: Anion Gap 8 (5-15); BUN 20 mg/dL (7-18); BUN/Creat Ratio 9.8 RATIO (10-20); Calcium,Total 9.4 mg/dL (8.5-10.1); Chloride 91 mmol/L (98-107); Creatinine, Serum 2.05 mg/dL (0.70-1.30); EST Glomerular Filtration Rate 33 mL/min (>60); Est Glom Filt Rate - Afr Amer 40 mL/min (>60); Estimated Creatinine Clearance 32.29 ml/min; Glucose 113 mg/dL (74-106); Potassium 4.5 mmol/L (3.5-5.1); Sodium Level 121 mmol/L (136-145)
[2024-05-14] MEDS: Heparin Injection (Vial) 5,000 UNIT/ML VIAL 5000 UNIT SC (20:48)
[2024-05-14] MEDS: Tamsulosin HCl 0.4 MG Capsule 0.8 MG PO (20:48)
[2024-05-14 21:12] LABS: Bedside Glucose 143 mg/dL (74-106)
[2024-05-14 22:28] LABS: Anion Gap 9 (5-15); BUN 20 mg/dL (7-18); BUN/Creat Ratio 9.9 RATIO (10-20); Calcium,Total 8.8 mg/dL (8.5-10.1); Chloride 92 mmol/L (98-107); Creatinine, Serum 2.02 mg/dL (0.70-1.30); EST Glomerular Filtration Rate 34 mL/min (>60); Est Glom Filt Rate - Afr Amer 41 mL/min (>60); Estimated Creatinine Clearance 32.77 ml/min; Glucose 133 mg/dL (74-106); Potassium 4.5 mmol/L (3.5-5.1); Sodium Level 122 mmol/L (136-145)
[2024-05-15 01:58] LABS: Anion Gap 8 (5-15); BUN 20 mg/dL (7-18); BUN/Creat Ratio 9.8 RATIO (10-20); Chloride 94 mmol/L (98-107); Creatinine, Serum 2.05 mg/dL (0.70-1.30); EST Glomerular Filtration Rate 33 mL/min (>60); Est Glom Filt Rate - Afr Amer 40 mL/min (>60); Estimated Creatinine Clearance 32.29 ml/min; Glucose 105 mg/dL (74-106); Potassium 4.6 mmol/L (3.5-5.1); Sodium Level 124 mmol/L (136-145)
[2024-05-15] MEDS: 0.9% Normal Saline (1000mL) 1,000 ML 125 ML IV (02:06)
[2024-05-15 02:10] VITALS: BP 107/53; PULSE 74; RESP 20; TEMP 36.9; O2SAT 94
[2024-05-15] MEDS: Heparin Injection (Vial) 5,000 UNIT/ML VIAL 5000 UNIT SC ×3 (05:30→21:55)
--- NOTE | 2024-05-15 07:16 | PCM.PN.HOSP ---
Reason for Visit Reason for Visit: Generalized weakness/abnormal labs as an outpatient Subjective Subjective Mr. Maria Elena Green is an 84-year-old white male who presented to the emergency department at [facility] on 05/14/2020 for after being referred from his nephrology office due to abnormal labs showing hyponatremia. The patient has also been feeling weak as of late. He has a history of metastatic renal cell carcinoma and is on immunotherapy with Opdivo (nivolumab). He follows with Dr. Feliciano from [facility] hematology/oncology. He had an admission here in early April for CARLOS and hyponatremia. Upon presentation the patient's stated had not been eating well but had been drinking lots of water up to 2.5 L/day. He had not had any nausea or vomiting and he denied fevers or chills but did have generalized weakness which was worsening with time. He had no urinary symptoms. Per his his current presentation is very similar to the presentation he came to the hospital with in early April. Patient states he still fairly weak. Per his he would not be safe to go home based on his meds or status today with therapy. Has no acute complaints at this time. We did discuss his cancer and what his thought process was regarding this. He currently would like to talk further with Dr. Feliciano but is not quite ready to consider hospice yet. He previously was just discharged from [facility] about 2 weeks ago. Objective Data Objective Data Vital Signs: Vital Signs Temp Pulse Resp BP Pulse Ox O2 Del Method 98.4 F 74 20 H 107/53 L 94 Room Air 05/15/24 02:10 05/15/24 02:10 05/15/24 02:10 05/15/24 02:10 05/15/24 02:10 05/15/24 05:23 Oxygen Delivery Method Room Air Weight: 109.86 kg Body Mass Index (BMI) 37.9 Intake & Output: Intake and Output for Last 24 Hours 05/13/24 05/14/24 05/15/24 23:59 23:59 23:59 Intake Total 500 / 500 2612.83 / 2612.83 Output Total 150 / 150 400 / 400 Balance 350 / 350 2212.83 / 2212.83 Lab / Micro Data 05/15/24 08:20 05/15/24 08:20 Labs: Laboratory Results - last 24 hr 05/14/24 12:18: WBC 8.6, RBC 3.64 L, Hgb 10.9 L, Hct 32.8 L, MCV 90.1, MCH 29.9, MCHC 33.2, RDW Std Deviation 48.1 H, RDW Coeff of Joe 14.6, Plt Count 185, MPV 9.5, Immature Gran % (Auto) 0.200, Neut % (Auto) 28.5 L, Lymph % (Auto) 42.4 H, [place] % (Auto) 8.6, Eos % (Auto) 19.7 H, Baso % (Auto) 0.6, Absolute Neuts (auto) 2.5, Absolute Lymphs (auto) 3.65, Nucleated RBC % 0, Sodium 121 L, Potassium 4.4, Chloride 90 L, Carbon Dioxide 22.0, Anion Gap 9, BUN 22 H, Creatinine 2.07 H, Estim Creat Clear Calc 31.61, Est GFR (MDRD) Af Amer 40 L, Est GFR (MDRD) Non-Af 33 L, BUN/Creatinine Ratio 10.6, Glucose 133 H, Calcium 9.4, Phosphorus 2.6, Magnesium 2.5, Total Bilirubin 0.70, AST 60 H, ALT 38, Alkaline Phosphatase 130 H, Troponin I High Sens 11, Total Protein 6.4, Albumin 2.7 L, Globulin 3.7, Albumin/Globulin Ratio 0.7 L, Lipase 78 H 05/14/24 12:30: Urine Color Yellow, Urine Clarity Clear, Urine pH 6.0, Ur Specific [place] 1.015, Urine Protein 100 H, Urine Glucose (UA) 1000 H, Urine Ketones Negative, Urine Occult Blood 10 H, Urine Nitrite Negative, Urine Bilirubin Negative, Urine Urobilinogen Normal, Ur Leukocyte Esterase Negative, Urine RBC 0 SEEN, Urine WBC 0 SEEN, Ur Squamous Epith Cells 0-5 SEEN, Urine Bacteria 0 SEEN, Urine Mucus 0 SEEN 05/14/24 18:00: POC Glucose 110 H 05/14/24 18:42: Sodium 121 L, Potassium 4.5, Chloride 91 L, Carbon Dioxide 22.0, Anion Gap 8, BUN 20 H, Creatinine 2.05 H, Estim Creat Clear Calc 32.29, Est GFR (MDRD) Af Amer 40 L, Est GFR (MDRD) Non-Af 33 L, BUN/Creatinine Ratio 9.8 L, Glucose 113 H, Calcium 9.4 05/14/24 20:46: POC Glucose 143 H 05/14/24 22:04: Sodium 122 L, Potassium 4.5, Chloride 92 L, Carbon Dioxide 21.0, Anion Gap 9, BUN 20 H, Creatinine 2.02 H, Estim Creat Clear Calc 32.77, Est GFR (MDRD) Af Amer 41 L, Est GFR (MDRD) Non-Af 34 L, BUN/Creatinine Ratio 9.9 L, Glucose 133 H, Calcium 8.8 05/15/24 01:37: Sodium 124 L, Potassium 4.6, Chloride 94 L, Carbon Dioxide 22.0, Anion Gap 8, BUN 20 H, Creatinine 2.05 H, Estim Creat Clear Calc 32.29, Est GFR (MDRD) Af Amer 40 L, Est GFR (MDRD) Non-Af 33 L, BUN/Creatinine Ratio 9.8 L, Glucose 105, Calcium 9.0 Micro: Microbiology 05/14/24 12:34 Mucosa - Nose SARS-CoV-2, Influenza & RSV (PCR) - Final Radiography Diagnostic Testing: Radiology Impression Chest X-Ray 05/14/24 12:45 IMPRESSION: Stable mild increased linear markings at the lung bases suggestive of atelectasis. Cardiomegaly. Electronically Signed: Darien Strong MD at 13:01 EDT Reading Location ID and State: [facility] / [place] , Service support , Physical Exam Const alert, oriented x3, no apparent distress and well nourished; Negative for average body habitus or healthy appearing Constitutional Narrative: Debilitated, obese, elderly, white male, sitting up in a chair, at bedside, appears comfortable, does not appear toxic, very pleasant HEENT head/scalp atraumatic and moist oral mucous membranes HEENT Narrative: Mallampati is 3, dentition is poor, no thrush Resp normal respiratory effort, no retractions, no use of accessory muscles and clear to auscultation bilaterally Auscultation: Negative for rales, rhonchi or wheezes Cardio regular rate, regular rhythm, S1 normal heart sound, S2 normal heart sound, no murmurs, no rub, no gallops and no clicks GI normal to inspection, nondistended, normoactive bowel sounds, soft to palpation and non-tender GI Narrative: Large protuberant abdomen Extremity no clubbing, cyanosis or edema Extremity Narrative: 1+ pitting edema bilateral lower extremities, pedal pulses are 2+, no cyanosis or clubbing noted Neuro oriented x3, moves all extremities and no focal motor deficits Neuro Narrative: Significant generalized weakness noted-proximal greater than distal consistent with age-related sarcopenia Speech: speech normal Psych affect normal Psych Narrative: Very pleasant, interacts appropriately Assessment & Plan Assessment/Plan (1) Acute hyponatremia: (2) Weakness: PLAN: Plan Acute on chronic hyponatremia -Baseline sodium most recently has been running between 129 and 132 -Sodium 121 on presentation -It sounds as if patient's been getting a lot of free water at home--> discontinue IV fluids and fluid restrict to 1250 cc daily -Check urine sodium -Check uric acid -Check urine osmolality -Check serum osmolality -Continue every 6 hour sodiums with goal correction no more than 12 mill equivalents in a 24-hour period -Upon review of Opdivo side effects can include hyponatremia including SIADH -Nephrology consult is pending Generalized weakness/debility-multifactorial -Sounds like this is acute on chronic related to multiple chronic diseases/medications/acute metabolic abnormalities -PT/OT consultation -Case management CKD stage IV -Serum creatinine appears to be close to baseline -As of late has been running between 1.9 and 2. -Was definitely higher when he was hospitalized here last but had CARLOS at that time -Avoid nephrotoxins as able -Renally dose medications -Monitor renal function closely -Nephrology consultation is pending for hyponatremia Renal cell carcinoma -Status post right nephrectomy in 2011 -Recurrence diagnosed in 2021 -Currently on dual immunotherapy -both can cause sodium issues via thyroid and adrenal axis issues -Follows with Dr. Feliciano at [facility] hematology/oncology -CT chest abdomen pelvis without contrast on admit showed large space-occupying liver lesions, peritoneal carcinomatosis involving the greater omentum with small volume ascites, 5 mm left upper lobe pulmonary nodule, and subcutaneous right lateral abdominal wall muscle lesion all concerning for worsening metastatic disease BPH with obstruction -Continue home Flomax History of gout -Continue home allopurinol with renal dosing DM-2 -Hold home glimepiride -Continue Jardiance -SSI -Cardiac/carb controlled diet Essential HTN/HPL -Patient previously on lisinopril but discontinued with renal dysfunction -Will add as needed hydralazine for systolic pressure greater than 160 -Continue home Zetia Obesity -BMI 37.9 -Recommend weight loss -Complicates treatment, prognosis, outcomes DVT prophylaxis -Subcu heparin 3 times daily CODE STATUS -DNR CCA with no intubation Charges/Coding Visit Charges Inpatient E&M: 55458 Subs Hosp L2
[2024-05-15 07:40] VITALS: BP 125/56; PULSE 71; RESP 18; TEMP 36.7; O2SAT 94
[2024-05-15] MEDS: Ezetimibe 10 MG Tablet PO (07:42)
[2024-05-15] MEDS: Cholecalciferol (VIT D3) 25 MCG TABLET (1,000 UNITS) PO (07:42)
[2024-05-15] MEDS: Allopurinol 100 MG Tablet PO (07:43)
[2024-05-15] MEDS: Aspirin 81 MG TAB.CHEW PO (07:43)
[2024-05-15] MEDS: Multivitamins,Ther W-Minerals Tablet 1 TABLET PO (07:43)
[2024-05-15] MEDS: Loratadine 10 MG Tablet PO (07:43)
[2024-05-15] MEDS: Pyridoxine HCl 100 MG Tablet PO (07:43)
[2024-05-15 08:38] LABS: Absolute Lymphocyte Count 3.54 X10^3/uL (0.83-4.51); Absolute Neutrophil Count 2.3 X10^3/uL (2.0-7.7); Basophil# 0.04 X10^3/uL; Basophil% 0.5 % (0-1); Eosinophils% 16.5 % (0-5); Hematocrit 32.6 % (40-54); Hemoglobin 10.7 g/dL (13.0-16.5); Lymphocyte # 3.54 X10^3/ul (0.83-4.51); Lymphocyte % 44.9 % (19-41); Mean Corp Hgb Conc 32.8 g/dL (32-36); Mean Corpuscular Hgb 30.1 pg (27.0-32.0); Mean Corpuscular Volume 91.8 fL (80-94); Mean Platelet Vol. 9.2 fl (6.2-12.0); Monocyte# 0.66 X10^3/uL; Monocyte% 8.4 % (0-10); NRBC Flagged by Analyzer 0 % (0-5); Neutrophil # 2.32 X10^3/uL (2.7-7.7); Neutrophil % 29.4 % (47-70); Platelet Count 203 K/mm3 (150-450); RBC Distribution Width CV 14.8 % (11.6-14.6); RBC Distribution Width SD 50.5 fl (35.1-43.9); Red Blood Count 3.55 M/mm3 (4.6-6.2); White Blood Count 7.9 K/mm3 (4.4-11.0)
[2024-05-15 09:30] LABS: Osmolality, Urine 254 mOsm/KG
[2024-05-15 09:30] LABS: Osmolality, Serum 263 mOsm/KG (280-301)
[2024-05-15 09:32] LABS: Urine Sodium 31 mmol/L (Not Establ.)
[2024-05-15 10:22] LABS: Anion Gap 8 (5-15); BUN 18 mg/dL (7-18); BUN/Creat Ratio 8.7 RATIO (10-20); Calcium,Total 8.7 mg/dL (8.5-10.1); Chloride 96 mmol/L (98-107); Creatinine, Serum 2.08 mg/dL (0.70-1.30); EST Glomerular Filtration Rate 33 mL/min (>60); Est Glom Filt Rate - Afr Amer 39 mL/min (>60); Estimated Creatinine Clearance 31.82 ml/min; Glucose 100 mg/dL (74-106); Potassium 4.5 mmol/L (3.5-5.1); Sodium Level 124 mmol/L (136-145)
[2024-05-15 10:52] LABS: T4 Free Direct 0.52 ng/dL (0.76-1.46)
[2024-05-15 11:54] LABS: Bedside Glucose 135 mg/dL (74-106)
--- NOTE | 2024-05-15 12:22 | CASEMGMT ---
[facility] Readmission Note Previous Admission: 04/11/24-04/17/24 Diagnosis: CAP, CARLOS with dehydration, weakness DC Disposition:[facility] Current Admission: Admitted 05/14/24 Current Diagnosis: Hyponatremia Pt presented to ER after tamping machine operator recommended due to labs. [facility]NO[facility] POOL into pt room, pt sitting up in chair in no distress, pt and 2 dtrs at bedside. Pt states he was dc'd from [facility] on 04/29. He has been taking his medications as ordered and had a [employer] OFF[employer] appt 2 wks ago. Pt was supposed to have had [facility], PT and OT as well as an aide come out yesterday to start. Pt family had set this up on their own per report. Pt states he was on a SAUNDRA diet with no fluid restriction. Pt had his last immunotherapy in February and he does not think he is going to continue with this. Pt states she cannot handle pt in this state at home. Pt dtrs agree and state they cannot give much assistance as they still work. Pt is agreeable to go back to [facility] although he prefers to go home. Pt denies the need for a list of other options of facilities to go to. Pt is aware that should he gain strength and be able to go back home with HH then the SNF referral can be cancelled. Pt verbalized understanding. DC Plan: [facility] Updated SW.
--- NOTE | 2024-05-15 12:31 | CASEMGMT ---
Social Work- Per RNCM, pt family declined list and would like referral to [place], as pt was recently there. DCA advised to complete referral. SW remains available to follow. HENRY Mcbride
--- NOTE | 2024-05-15 13:12 | CASEMGMT ---
Addendum entered by Jodi Jacobs 05/15/24 15:57: [facility] has accepted. SW updated. Jodi Jacobs DC Planning Asst. Original Note: Discharge Planning Referral sent to [facility] via [facility]. Jodi Jacobs DC Planning Asst.
[2024-05-15 13:47] LABS: Sodium Level 123 mmol/L (136-145)
[2024-05-15 14:24] VITALS: BP 109/61; PULSE 77; RESP 18; TEMP 36.6; O2SAT 94
--- NOTE | 2024-05-15 15:10 | CHAPLAIN ---
Type of Pastoral Visit _x__ Initial Visit ___ Follow-up Visit ___ On-call Visit ___ General Patient Visit ___ Spiritual Assessment ___ Family Conference ___ Bereavement ___ Rapid Response ___ Code Blue ___ Other (describe below) Pastoral Care Referral From _x__ Patient _x__ Family ___ Nurse ___ Physician ___ Floor Scrubber ___ Manager Customer ___ Other (describe below) Sacrament/Intervention _x__ Active listening ___ Anointing ___ Sabianism ___ Bereavement ___ Communion ___ Ariana exploration ___ ___ Life review _x__ Prayer ___ Reconciliation ___ Sacrament of Sick _x__ Supportive presence ___ Wedding ___ Other (describe below) Pastoral Comments patient and spouse and daughter are in the room; pt answers questions; pt is slow to respond but also presents with little concern and thankfulness for support of family; prayer welcomed
--- NOTE | 2024-05-15 15:53 | CON.PCM.RE_ITS ---
Assessment & Plan Assessment/Plan (1) Acute hyponatremia: PLAN: Sodium 121 on admission, increased to 124 today. Urine sodium more than 20, urine osmolality more than 100. 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 Extremely low cortisol. 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 Discussed with primary service. He is not a candidate for aggressive steroid regimen to suppress the endocrinopathies/nephritis. Recommend at least replacement dose of cortisol to treat adrenal dysfunction. He will eventually need endocrinology consult for appropriate treatment of adrenal dysfunction. CKD stage IIIb. Baseline creatinine 2.0. Was around 2.7 last admission, current creatinine closer to baseline. Renal cell carcinoma with extensive mets. Family not wanting chemotherapy anymore. Probably not a candidate clinically. Goals of care discussion ongoing. Discussed with hospitalist, discussed with family at bedside (2) CKD (chronic kidney disease) stage 4, GFR 15-29 ml/min: HPI Consult Data Date of Consult: 05/15/24 HPI Narrative Reason for Consultation: [id number] HPI Narrative: KIYA NUNEZ, is a 84 M who presents To the hospital with generalized weakness. Nephrology on consultation in view of hyponatremia and CKD. He has no history of CKD stage IIIb, baseline creatinine around 2.0. Extensive history of renal cell carcinoma with mets. He was on chemotherapy with Opdivo, stopped in March due to adverse events. During recent hospitalization, he was found to have low cortisol, was discharged on Decadron. It seems this was tapered off at the senior care. Came back with generalized weakness. Currently alert, awake. No urinary complaints. Sodium was about 121 on admission, increased to 124 today. Urine sodium more than 20, urine osmolality more than 100. Appetite is fair. Discussed with family at bedside. [facility] Medical History (Updated 05/14/24 @ 14:51 by Dbei Arango) Depression GERD (gastroesophageal reflux disease) Kidney stones Kidney disease Obesity due to excess calories Loss of hearing Wears glasses Wears dentures Cancer Diabetes Arthritis Prostate disease High cholesterol Back pain Dietary restriction History of diverticulitis Heartburn Non-smoker Shortness of breath on exertion Leg cramps History of edema History of pain when walking History of stress test Cardiology follow-up encounter Hypertension BRBPR (bright red blood per rectum) GI bleed Home Medications ?Medication ?Instructions ?Recorded ?Last Taken ?Type allopurinol 100 mg tablet 100 mg PO DAILYCM Gout 03/18/15 Unknown History ezetimibe 10 mg tablet 10 mg PO DAILY Cholesterol 03/18/15 Unknown History [id number]-pathq acid 0.4 1 ea PO DAILY Supplement 03/18/15 Unknown History mg-lycopene 300 mcg-lutein 250 mcg tablet (Centrum Silver) pyridoxine (vitamin B6) 100 mg 100 mg PO DAILY Supplement 03/18/15 Unknown History tablet tamsulosin 0.4 mg capsule 0.8 mg PO QHS Urinary Retention 03/18/15 Unknown History cholecalciferol (vitamin D3) 25 1,000 unit PO DAILY Supplement 08/25/20 Unknown History mcg (1,000 unit) tablet loratadine 10 mg tablet (Claritin) 10 mg PO DAILY Allergies 04/10/21 Unknown History aspirin 81 mg chewable tablet 1 tab PO DAILY prevention 04/11/24 Unknown History empagliflozin 25 mg tablet 25 mg PO DAILY diabetes 04/11/24 Unknown History (Jardiance) glimepiride 2 mg tablet 2 mg PO DAILY diabetes 04/11/24 Unknown History nut.tx.imp.renal fxn,lac-reduc ml PO TID supplement 05/14/24 Unknown History 0.08 gram-1.8 kcal/mL oral liquid (Nepro Carb Steady) sodium bicarbonate 650 mg tablet mg PO BID 05/14/24 Unknown History Allergy/AdvReac Type Severity Reaction Status Date / Time aspirin Allergy Rash Verified 05/14/24 11:19 atorvastatin calcium (From Allergy Other Verified 05/14/24 11:19 Lipitor) finasteride Allergy Rash Verified 05/14/24 11:19 ibuprofen (From Motrin) Allergy Swelling Verified 05/14/24 11:19 simvastatin (From Zocor) Allergy Other Verified 05/14/24 11:19 sulfamethoxazole (From Allergy Unknown Verified 05/14/24 11:19 Bactrim) trimethoprim (From Bactrim) Allergy Unknown Verified 05/14/24 11:19 Family History no significant family his Surgical History (Updated 05/14/24 @ 14:50 by Debi Arango) Hx of CABG Status post left knee replacement Hx of colonoscopy Hx of tonsillectomy History of nephrectomy, right History of surgical removal of skin lesion Hx of bursectomy Hx of total shoulder replacement Social History Smoking Status: Never smoker ROS ROS Narrative negative except above Physical Exam Narrative Alert awake oriented x 3 no obvious distress no pallor no icterus no JVD s1s2 no murmurs lungs clear abdomen soft no organomegaly no edema no cyanosis Lab / Micro Data 05/15/24 08:20 05/15/24 13:12 Labs: Laboratory Results - last 24 hr 05/14/24 18:00: POC Glucose 110 H 05/14/24 18:42: Sodium 121 L, Potassium 4.5, Chloride 91 L, Carbon Dioxide 22.0, Anion Gap 8, BUN 20 H, Creatinine 2.05 H, Estim Creat Clear Calc 32.29, Est GFR (MDRD) Af Amer 40 L, Est GFR (MDRD) Non-Af 33 L, BUN/Creatinine Ratio 9.8 L, G lucose 113 H, Calcium 9.4 05/14/24 20:46: POC Glucose 143 H 05/14/24 22:04: Sodium 122 L, Potassium 4.5, Chloride 92 L, Carbon Dioxide 21.0, Anion Gap 9, BUN 20 H, Creatinine 2.02 H, Estim Creat Clear Calc 32.77, Est GFR (MDRD) Af Amer 41 L, Est GFR (MDRD) Non-Af 34 L, BUN/Creatinine Ratio 9.9 L, G lucose 133 H, Calcium 8.8 05/15/24 01:37: Sodium 124 L, Potassium 4.6, Chloride 94 L, Carbon Dioxide 22.0, Anion Gap 8, BUN 20 H, Creatinine 2.05 H, Estim Creat Clear Calc 32.29, Est GFR (MDRD) Af Amer 40 L, Est GFR (MDRD) Non-Af 33 L, BUN/Creatinine Ratio 9.8 L, Glucose 105, Calcium 9.0 05/15/24 08:00: Urine Osmolality 254, Ur Random Sodium 31 05/15/24 08:20: WBC 7.9, RBC 3.55 L, Hgb 10.7 L, Hct 32.6 L, MCV 91.8, MCH 30.1, MCHC 32.8, RDW Std Deviation 50.5 H, RDW Coeff of Joe 14.8 H, Plt Count 203, MPV 9.2, Immature Gran % (Auto) 0.300, Neut % (Auto) 29.4 L, Lymph % (Auto) 44.9 H, Noble % (Auto) 8.4, Eos % (Auto) 16.5 H, Baso % (Auto) 0.5, Absolute Neuts (auto) 2.3, Absolute Lymphs (auto) 3.54, Nucleated RBC % 0, Sodium 124 L, Potassium 4.5, Chloride 96 L, Carbon Dioxide 20.0 L, Anion Gap 8, BUN 18, Creatinine 2.08 H, Estim Creat Clear Calc 31.82, Est GFR (MDRD) Af Amer 39 L, Est GFR (MDRD) Non-Af 33 L, BUN/Creatinine Ratio 8.7 L, Glucose 100, Serum Osmolality 263 L, Uric Acid 5.0, Calcium 8.7, TSH 1.230, Free T4 0.52 L, Cortisol 1.40 L 05/15/24 11:36: POC Glucose 135 H 05/15/24 13:12: Sodium 123 L Micro: Microbiology 05/14/24 12:34 Mucosa - Nose SARS-CoV-2, Influenza & RSV (PCR) - Final
--- NOTE | 2024-05-15 16:07 | CASEMGMT ---
Social Work- MARY met with pt and pt to advise that [facility] accepted referral. Pt reports that she will transport. SW noted on green sheet. SW remains available to follow. Plan: [facility]; skilled level of care HENRY Mcbride
[2024-05-15] MEDS: Hydrocortisone 10 MG Tablet PO (16:24)
[2024-05-15 16:45] LABS: Bedside Glucose 125 mg/dL (74-106)
[2024-05-15 21:49] VITALS: BP 117/45; PULSE 77; RESP 16; TEMP 36.8; O2SAT 93
[2024-05-15] MEDS: Tamsulosin HCl 0.4 MG Capsule 0.8 MG PO (21:55)
[2024-05-15] MEDS: Insulin Lispro 100 UNIT/ML INSULN.PEN SC (22:00)
[2024-05-15 22:48] LABS: Bedside Glucose 199 mg/dL (74-106)
[2024-05-16 03:00] VITALS: O2SAT 91
[2024-05-16 04:30] VITALS: BP 110/47; PULSE 69; RESP 18; TEMP 36.6; O2SAT 93
[2024-05-16] MEDS: Heparin Injection (Vial) 5,000 UNIT/ML VIAL 5000 UNIT SC ×3 (04:34→23:48)
[2024-05-16 06:10] LABS: Anion Gap 7 (5-15); BUN 19 mg/dL (7-18); Calcium,Total 8.7 mg/dL (8.5-10.1); Chloride 96 mmol/L (98-107); EST Glomerular Filtration Rate 32 mL/min (>60); Est Glom Filt Rate - Afr Amer 39 mL/min (>60); Estimated Creatinine Clearance 31.52 ml/min; Glucose 92 mg/dL (74-106); Potassium 4.7 mmol/L (3.5-5.1); Sodium Level 124 mmol/L (136-145)
[2024-05-16 08:59] VITALS: BP 104/76; PULSE 74; RESP 18; TEMP 36.3; O2SAT 92
[2024-05-16] MEDS: Ezetimibe 10 MG Tablet PO (09:04)
[2024-05-16] MEDS: Pyridoxine HCl 100 MG Tablet PO (09:04)
[2024-05-16] MEDS: Loratadine 10 MG Tablet PO (09:04)
[2024-05-16] MEDS: Cholecalciferol (VIT D3) 25 MCG TABLET (1,000 UNITS) PO (09:04)
[2024-05-16] MEDS: Aspirin 81 MG TAB.CHEW PO (09:05)
[2024-05-16] MEDS: Hydrocortisone 10 MG Tablet 20 MG PO ×2 (09:05→16:42)
[2024-05-16] MEDS: Allopurinol 100 MG Tablet PO (09:05)
[2024-05-16] MEDS: Multivitamins,Ther W-Minerals Tablet 1 TABLET PO (09:05)
[2024-05-16 12:16] LABS: Bedside Glucose 127 mg/dL (74-106)
--- NOTE | 2024-05-16 14:29 | PN.HOSP_ITS ---
Reason for Visit Reason for Visit: Generalized weakness/abnormal outpatient labs Subjective Subjective Still feeling weak. We did discuss that his sodium is slowly trending up and that we think it is related to abnormalities in the adrenal axis related to his biologic chemotherapy. He was started on hydrocortisone which we will continue. Objective Data Objective Data Vital Signs: Vital Signs Temp Pulse Resp BP Pulse Ox O2 Del Method 97.4 F L 74 18 104/76 92 Room Air 05/16/24 08:59 05/16/24 08:59 05/16/24 08:59 05/16/24 08:59 05/16/24 08:59 05/16/24 08:59 Oxygen Delivery Method Room Air Weight: 109.86 kg Body Mass Index (BMI) 37.9 Intake & Output: Intake and Output for Last 24 Hours 05/14/24 05/15/24 05/16/24 23:59 23:59 23:59 Intake Total 500 / 500 3287.83 / 3587.83 1917 / 1917 Output Total 150 / 150 400 / 1000 1175 / 1175 Balance 350 / 350 2887.83 / 2587.83 742 / 742 Lab / Micro Data 05/15/24 08:20 05/16/24 05:32 Labs: Laboratory Results - last 24 hr 05/15/24 16:23: POC Glucose 125 H 05/15/24 21:54: POC Glucose 199 H 05/16/24 05:32: Sodium 124 L, Potassium 4.7, Chloride 96 L, Carbon Dioxide 21.0, Anion Gap 7, BUN 19 H, Creatinine 2.10 H, Estim Creat Clear Calc 31.52, Est GFR (MDRD) Af Amer 39 L, Est GFR (MDRD) Non-Af 32 L, BUN/Creatinine Ratio 9.0 L, Glucose 92, Calcium 8.7 05/16/24 11:58: POC Glucose 127 H Micro: Microbiology 05/14/24 12:34 Mucosa - Nose SARS-CoV-2, Influenza & RSV (PCR) - Final Physical Exam Const alert, oriented x3, no apparent distress and well nourished; Negative for average body habitus or healthy appearing Constitutional Narrative: Debilitated, obese, elderly, white male, sitting up in a chair, at bedside shaving his face, appears comfortable, does not appear toxic but does appear chronically ill, very pleasant General Appearance: cooperative HEENT normocephalic, head/scalp atraumatic, hearing grossly normal bilaterally and moist oral mucous membranes Resp Auscultation: Negative for rales, rhonchi or wheezes Cardio regular rate, regular rhythm, S1 normal heart sound, S2 normal heart sound, no murmurs, no rub, no gallops and no clicks GI normal to inspection, nondistended, normoactive bowel sounds, soft to palpation, non-tender and non-distended GI Narrative: Large protuberant abdomen Extremity Extremity Narrative: 1+ pitting edema bilateral lower extremities, pedal pulses are 2+, no cyanosis or clubbing noted Neuro oriented x3, CN's II-XII intact bilaterally, moves all extremities and no focal motor deficits Neuro Narrative: Significant generalized weakness noted-proximal greater than distal consistent with age-related sarcopenia Speech: speech normal Psych affect normal Psych Narrative: Very pleasant, interacts appropriately Assessment & Plan Assessment/Plan (1) Acute hyponatremia: (2) Weakness: PLAN: Plan 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 -Baseline sodium most recently has been running between 129 and 132 -Sodium 121 on presentation and up to 124 today -Continue fluid restrict to 1250 cc daily for now -Cortisol level was dramatically low and this is likely secondary to his biologic agents for his chemotherapy -Hydrocortisone 20 twice daily initiated -Will need endocrinology follow-up after discharge -Would like patient to be at around 130 prior to discharge -Upon review of Opdivo side effects can include hyponatremia including SIADH -Nephrology is following-appreciate input Generalized weakness/debility-multifactorial -Sounds like this is acute on chronic related to multiple chronic diseases/medications/acute metabolic abnormalities -PT/OT following and patient will need placement at discharge--> okay to go to [facility] tomorrow if medically ready -Case management CKD stage IV -Serum creatinine appears to be close to baseline -As of late has been running between 1.9 and 2. -Current serum creatinine is 2.1 and relatively stable -Avoid nephrotoxins as able -Renally dose medications -Monitor renal function closely -Nephrology is following-appreciate input Renal cell carcinoma -Status post right nephrectomy in 2011 -Recurrence diagnosed in 2021 -Currently on dual immunotherapy -both can cause sodium issues via thyroid and adrenal axis issues -Follows with Dr. Feliciano at [facility] hematology/oncology -CT chest abdomen pelvis without contrast on admit showed large space-occupying liver lesions, peritoneal carcinomatosis involving the greater omentum with small volume ascites, 5 mm left upper lobe pulmonary nodule, and subcutaneous right lateral abdominal wall muscle lesion all concerning for worsening metastatic disease BPH with obstruction -Continue home Flomax History of gout -Continue home allopurinol with renal dosing DM-2 -Hold home glimepiride -Continue Jardiance -SSI -Cardiac/carb controlled diet Essential HTN/HPL -Patient previously on lisinopril but discontinued with renal dysfunction -Will add as needed hydralazine for systolic pressure greater than 160 -Continue home Zetia Obesity -BMI 37.9 -Recommend weight loss -Complicates treatment, prognosis, outcomes DVT prophylaxis -Subcu heparin 3 times daily CODE STATUS -DNR CCA with no intubation Charges/Coding Visit Charges Inpatient E&M: 02073 Subs Hosp L2
[2024-05-16 15:50] VITALS: BP 130/54; PULSE 85; RESP 18; TEMP 37.1; O2SAT 94
[2024-05-16] MEDS: Insulin Lispro 100 UNIT/ML INSULN.PEN SC ×2 (16:41→23:47)
[2024-05-16 17:24] LABS: Bedside Glucose 232 mg/dL (74-106)
[2024-05-16 23:37] VITALS: BP 119/63; PULSE 92; RESP 16; TEMP 36.5; O2SAT 95
[2024-05-16] MEDS: Tamsulosin HCl 0.4 MG Capsule 0.8 MG PO (23:48)
[2024-05-17 02:30] LABS: Bedside Glucose 247 mg/dL (74-106)
[2024-05-17] MEDS: Heparin Injection (Vial) 5,000 UNIT/ML VIAL 5000 UNIT SC (05:47)
[2024-05-17 05:50] VITALS: BP 112/57; PULSE 79; RESP 16; TEMP 36.7; O2SAT 94
[2024-05-17 06:52] LABS: Hematocrit 32.9 % (40-54); Hemoglobin 10.7 g/dL (13.0-16.5); Mean Corp Hgb Conc 32.5 g/dL (32-36); Mean Corpuscular Hgb 30.2 pg (27.0-32.0); Mean Corpuscular Volume 92.9 fL (80-94); Platelet Count 251 K/mm3 (150-450); RBC Distribution Width CV 14.9 % (11.6-14.6); RBC Distribution Width SD 50.9 fl (35.1-43.9); Red Blood Count 3.54 M/mm3 (4.6-6.2); White Blood Count 7.9 K/mm3 (4.4-11.0)
[2024-05-17 07:18] LABS: Anion Gap 6 (5-15); BUN 24 mg/dL (7-18); BUN/Creat Ratio 10.8 RATIO (10-20); Chloride 105 mmol/L (98-107); Creatinine, Serum 2.23 mg/dL (0.70-1.30); EST Glomerular Filtration Rate 30 mL/min (>60); Est Glom Filt Rate - Afr Amer 36 mL/min (>60); Estimated Creatinine Clearance 29.68 ml/min; Glucose 155 mg/dL (74-106); Potassium 4.4 mmol/L (3.5-5.1); Sodium Level 132 mmol/L (136-145)
[2024-05-17 08:10] LABS: Bedside Glucose 127 mg/dL (74-106)
[2024-05-17 10:25] VITALS: BP 106/60; PULSE 78; RESP 18; TEMP 36.4; O2SAT 96
[2024-05-17] MEDS: Hydrocortisone 10 MG Tablet 20 MG PO (10:32)
[2024-05-17] MEDS: Ezetimibe 10 MG Tablet PO (10:32)
[2024-05-17] MEDS: Cholecalciferol (VIT D3) 25 MCG TABLET (1,000 UNITS) PO (10:32)
[2024-05-17] MEDS: Pyridoxine HCl 100 MG Tablet PO (10:33)
[2024-05-17] MEDS: Allopurinol 100 MG Tablet PO (10:33)
[2024-05-17] MEDS: Loratadine 10 MG Tablet PO (10:33)
[2024-05-17] MEDS: Multivitamins,Ther W-Minerals Tablet 1 TABLET PO (10:33)
[2024-05-17] MEDS: Aspirin 81 MG TAB.CHEW PO (10:33)
--- NOTE | 2024-05-17 11:16 | PCM.TXEXTCAR ---
Diet Diet Order/Speech Therapy: 05/14/24 17:44 Diet: Consistent Carb - Calorie Controlled Food consistency:: Regular Liquid Consistency:: Regular/Thin Type of Dietary Supplement:: 4 oz GS w/ meals tid Fluid restriction:: 1250 mL How many daily calories?: 1800 calorie Routine Orders/Code Status Suppository Frequency: Daily PRN O2 Frequency: PRN Keep PO Greater than or Equal to (%): 89 Routine Lab Work: CBC (As needed) and BMP (05/20/2024) Code Status: DNRCC-A (No intubation) Wound(s) BLE: Wound Type: scratches Suggestions for Active Care Change Position every (hours): 2 Hours to sit in a chair: 2 Times a day to sit in chair: 3 Therapies Weight Bearing: Full weight bearing Physical Therapy: Eval and Treat Occupational Therapy: Eval and Treat Problem/Diagnosis (1) Acute hyponatremia: Status: Acute Code(s): E87.1 - Hypo-osmolality and hyponatremia (2) Weakness: Status: Acute Code(s): R53.1 - Weakness Plan Patient is to stay on steroids until he is able to follow-up with an adaptive physical education specialist who can help us with his low cortisol levels in conjunction with his previous chemotherapy. I have made a referral to Dr. Norris and that he is to be scheduled to be seen as soon as possible after discharge. Allergies/Procedures Done in Hospital Allergies aspirin Allergy (Verified 05/14/24 11:19) Rash atorvastatin calcium (From Lipitor) Allergy (Verified 05/14/24 11:19) Other finasteride Allergy (Verified 05/14/24 11:19) Rash ibuprofen (From Motrin) Allergy (Verified 05/14/24 11:19) Swelling simvastatin (From Zocor) Allergy (Verified 05/14/24 11:19) Other sulfamethoxazole (From Bactrim) Allergy (Verified 05/14/24 11:19) Unknown trimethoprim (From Bactrim) Allergy (Verified 05/14/24 11:19) Unknown Procedures: EKG and - (Chest x-ray) Type of Care/Length of Stay Estimated LOS: Convalescent Care Less Than 30 days Type of Care Needed: Skilled Rehab Potential: Good Prognosis: Fair Additional Orders/Day of Discharge Day of Discharge: 05/17/24 Dietary and Speech Recommendations Dietitian Recommendations/Changes: Continue 1800 kenyatta Consistent CHO diet w/ FR as ordered - rec liberalize fluid restriction as medically able Will add 4 oz glucerna shake tid w/ meals for increased nutrition if consumed Discharge Plan Admission Admit Date/Time: 05/14/24 14:22 Attending Provider: Flor Cooley Primary Care Provider: Isai Pedersen Consulting Providers: Leonardo Seymour; Carol Granados Discharge Orders/Prescriptions Prescriptions: No Action allopurinol 100 MG tablet 100 mg PO DAILYCM tamsulosin 0.4 MG capsule 0.8 mg PO QHS pyridoxine (vitamin B6) 100 MG tablet 100 mg PO DAILY ezetimibe 10 MG tablet 10 mg PO DAILY Centrum Silver 1 EACH tablet 1 ea PO DAILY cholecalciferol (vitamin D3) 1,000 UNIT tablet 1,000 unit PO DAILY loratadine [Claritin] 10 mg Tablet 10 mg PO DAILY Jardiance 25 mg tablet 25 mg PO DAILY glimepiride 2 mg tablet 2 mg PO DAILY aspirin 81 mg tablet,chewable 1 tab PO DAILY sodium bicarbonate 650 mg tablet PO BID Nepro Carb Steady 0.08 gram-1.8 kcal/mL liquid PO TID Referrals / Follow Up: Isai Pedersen MD [Primary Care Provider] -
--- NOTE | 2024-05-17 11:18 | DS.PCM_ITS ---
Providers Date of Admission: 05/14/24 Primary Care Physician: Dr. Isai Pedersen MD Consultations 05/14/24 17:44 Consult: Nephrology Routine Consulting Provider: Leonardo Seymour Reason for Consult: hyponatremia EMERGENT Consult: No MD Notified: Yes Date Notified: 05/14/24 Time Notified: 14:30 Method of Notification: Text Reason For Visit: HYPONATREMIA Diagnosis Discharge Diagnosis (1) Acute hyponatremia: Status: Acute Code(s): E87.1 - Hypo-osmolality and hyponatremia (2) Weakness: Status: Acute Code(s): R53.1 - Weakness Medications at Discharge Home Medications allopurinol 100 mg tablet 100 mg PO DAILYCM Gout 03/18/15 ezetimibe 10 mg tablet 10 mg PO DAILY Cholesterol 03/18/15 mrrjoapy-bgb-ihcqh acid 0.4 mg-lycopene 300 mcg-lutein 250 mcg tablet (Centrum Silver) 1 ea PO DAILY Supplement 03/18/15 pyridoxine (vitamin B6) 100 mg tablet 100 mg PO DAILY Supplement 03/18/15 tamsulosin 0.4 mg capsule 0.8 mg PO QHS Urinary Retention 03/18/15 cholecalciferol (vitamin D3) 25 mcg (1,000 unit) tablet 1,000 unit PO DAILY Supplement 08/25/20 loratadine 10 mg tablet (Claritin) 10 mg PO DAILY Allergies 04/10/21 aspirin 81 mg chewable tablet 1 tab PO DAILY prevention 04/11/24 empagliflozin 25 mg tablet (Jardiance) 25 mg PO DAILY diabetes 04/11/24 glimepiride 2 mg tablet 2 mg PO DAILY diabetes 04/11/24 nut.tx.imp.renal fxn,lac-reduc 0.08 gram-1.8 kcal/mL oral liquid (Nepro Carb Steady) ml PO TID supplement 05/14/24 sodium bicarbonate 650 mg tablet mg PO BID 05/14/24 hydrocortisone 10 mg tablet 10 mg PO BIDCM #0 tabs 05/17/24 insulin lispro 100 unit/mL subcutaneous pen (Humalog KwikPen (U-100) Insulin) See Protocol subcut TIDAC #0 mL 05/17/24 Hospital Course Operations None Procedures EKG and - (Chest x-ray) Summary of Care Provided Minutes Spent on Discharge: 38 Hospital Course: Mr. Faust is an 84-year-old white male who presented to the emergency department at [facility] on 05/14/2020 for after being referred from his nephrology office due to abnormal labs showing hyponatremia. The patient has also been feeling weak as of late. He has a history of metastatic renal cell carcinoma and is on immunotherapy with Opdivo (nivolumab). He follows with Dr. Feliciano from [facility] hematology/oncology. He had an admission here in early April for CARLOS and hyponatremia. Upon presentation the patient's stated had not been eating well but had been drinking lots of water up to 2.5 L/day. He had not had any nausea or vomiting and he denied fevers or chills but did have generalized weakness which was worsening with time. He had no urinary symptoms. Per his his current presentation is very similar to the presentation he came to the hospital with in early April. Sodium at the time of presentation was 121 down from 129-132 at the time of discharge. I reviewed the data from that hospitalization and it seems that he had hypocortisolism at that time and was treated with Decadron however this was discontinued at some point during his stay at the nursing facility. After discharge from nursing facility, he had a slow decline in his functional status and that is when they brought him in for reassessment and his sodium was again found to be low. I am unclear at what time the Decadron was discontinued. I did review the mechanism of action for hypocortisolism with Dr. Escobar who is on-call for Dr. Feliciano. There is disruption in the adrenal axis with resultant hypocortisolism which in turn causes hyponatremia. I did repeat his cortisol level at this time and it is indeed lower than was previously. During his last hospitalization about a month ago his cortisol level was 2.4 and at this point is 1.4. He was placed back on steroids. We used hydrocortisone 10 mg p.o. twice daily and with time his sodium improved slowly to the point on the day of discharge it was back up to 132. He is not on any offending medications. We will continue hydrocortisone 10 mg p.o. 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 He was asked to follow-up with Dr. Norris in [facility] and not to make any changes in his steroids until that point in time. He was seen by physical and Occupational Therapy during his stay and does need some additional rehab prior to returning home. He was able to go back to [place] for ongoing rehab prior to return home. He was discharged home in stable condition on 05/17/2024. He needs to follow-up with his primary care doctor within a week after discharge from the rehab facility and we have asked that he follow-up with endocrinology as soon as appointment is available. I did discuss the case with Dr. Norris prior to discharge. Sodium at the time of discharge was 132 and I have asked the facility at which he is going to be residing in the short-term to repeat a sodium level in 3 days on 05/20/2024. 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 He jokes more frequently and mood seems better. Has just gotten out and got a shower and was pleased to hear that his sodium is up to 132 and he believes today. Const alert, oriented x3, no apparent distress, no limitations and well nourished; Negative for average body habitus or healthy appearing Constitutional Narrative: Debilitated, obese, elderly, white male, sitting up in a chair, daughter at bedside, appears comfortable, does not appear toxic but does appear chronically ill, very pleasant General Appearance: cooperative, comfortable, well kempt and well developed Exam Limitations: no limitations Nutritional Appearance: obese HEENT normocephalic, head/scalp atraumatic, hearing grossly normal bilaterally and moist oral mucous membranes HEENT Narrative: No thrush, Mallampati 3 Eyes PERRL, EOMs intact bilaterally and conjunctivae normal Eyes Narrative: No scleral icterus Neck no lymphadenopathy and supple Neck Narrative: trachea midline Resp normal respiratory effort, no retractions, no use of accessory muscles and clear to auscultation bilaterally Auscultation: Negative for rales, rhonchi or wheezes Cardio regular rate, regular rhythm, S1 normal heart sound, S2 normal heart sound, no murmurs, no rub, no gallops and no clicks GI normal to inspection, nondistended, normoactive bowel sounds, soft to palpation and non-tender GI Narrative: Large protuberant abdomen Extremity no clubbing, cyanosis or edema Extremity Narrative: Trace to 1+ pitting edema bilateral lower extremities, pedal pulses are 2+, no cyanosis or clubbing noted Skin skin turgor normal and no jaundice Skin Narrative: few scratches on LE B Neuro oriented x3, CN's II-XII intact bilaterally, moves all extremities and no focal motor deficits Neuro Narrative: Significant generalized weakness noted-proximal greater than distal consistent with age-related sarcopenia Speech: speech normal Psych affect normal Psych Narrative: Very pleasant, interacts appropriately Weight / BMI Weight Weight: 109.86 kg Body Mass Index (BMI) 37.9 ABG / Lab / Microbiology Data 05/17/24 05:35 05/17/24 05:35 Laboratory: Laboratory Results - last 24 hr 05/16/24 11:58: POC Glucose 127 H 05/16/24 16:39: POC Glucose 232 H 05/16/24 23:45: POC Glucose 247 H 05/17/24 05:35: WBC 7.9, RBC 3.54 L, Hgb 10.7 L, Hct 32.9 L, MCV 92.9, MCH 30.2, MCHC 32.5, RDW Std Deviation 50.9 H, RDW Coeff of Joe 14.9 H, Plt Count 251, MPV 9.0, Sodium 132 L, Potassium 4.4, Chloride 105, Carbon Dioxide 21.0, Anion Gap 6, BUN 24 H, Creatinine 2.23 H, Estim Creat Clear Calc 29.68, Est GFR (MDRD) Af Amer 36 L, Est GFR (MDRD) Non-Af 30 L, BUN/Creatinine Ratio 10.8, Glucose 155 H, Calcium 9.0 05/17/24 07:51: POC Glucose 127 H Microbiology: Microbiology 05/14/24 12:34 Mucosa - Nose SARS-CoV-2, Influenza & RSV (PCR) - Final Meaningful Use Info Meaningful Use Meaningful Use Diagnoses (Choose all that apply): None applicable Ischemic Stroke Statin Dosing Therapy Reference: STATIN DOSE THERAPY REFERENCE: * Patients > 75 years receive moderate or high dose statin therapy. * Patients 75 years or YOUNGER should receive HIGH intensity statin dose unless contraindicated. You will be required to document reason for non-treatment if statin daily dose does not meet guidelines. HIGH DOSE STATIN THERAPY DAILY Atorvastatin > than or = to 40 mg Rosuvastatin > than or = to 20 mg Amlodipine + Atorvastatin > than or = to 2.5/40 mg Ezetimibe + Simvastatin 10/80 mg Simvastatin 80mg Discharge Plan Admission Admit Date/Time: 05/14/24 14:22 Primary Reason for Your Visit: weakness/low sodium Attending Provider: Flor Cooley Primary Care Provider: Isai Pedersen Consulting Providers: Leonardo Seymour; Carol Granados Instructions Additional Instructions / Restrictions: 1. Do not stop steroid until instructed to do so by endocrinology--> I have called Dr. Norris (dopster) and talked to her about your particular situation and she will be expecting a call to set up an appointment. Discharge Orders/Prescriptions Prescriptions: New hydrocortisone 10 mg Tablet 10 mg PO BIDCM Qty: 0 0RF insulin lispro [Humalog KwikPen Insulin] 100 unit/mL Insulin Pen See Protocol subcut TIDAC Qty: 0 0RF Protocol: 3. Sliding Scale Insulin Med Dosing Condition: 150-189 mg/dl = 1 unit Condition: 190-229 mg/dl = 2 units Condition: 230-269 mg/dl = 3 units Condition: 270-309 mg/dl = 4 units Condition: 310-349 mg/dl = 5 units Condition: 350-399 mg/dl = 6 units Condition: 400-449 mg/dl = 7 units Condition: Greater than 449 call physician Protocol Text: Suggested for: - Patients on Total Daily Insulin Dose of 37-55 units - Obese, infected, or steroid patients MEDIUM DOSING ALGORITHIM Continued allopurinol 100 MG tablet 100 mg PO DAILYCM tamsulosin 0.4 MG capsule 0.8 mg PO QHS pyridoxine (vitamin B6) 100 MG tablet 100 mg PO DAILY ezetimibe 10 MG tablet 10 mg PO DAILY Centrum Silver 1 EACH tablet 1 ea PO DAILY cholecalciferol (vitamin D3) 1,000 UNIT tablet 1,000 unit PO DAILY loratadine [Claritin] 10 mg Tablet 10 mg PO DAILY Jardiance 25 mg tablet 25 mg PO DAILY glimepiride 2 mg tablet 2 mg PO DAILY aspirin 81 mg tablet,chewable 1 tab PO DAILY sodium bicarbonate 650 mg tablet PO BID Nepro Carb Steady 0.08 gram-1.8 kcal/mL liquid PO TID Referrals / Follow Up: Isai Pedersen MD [Primary Care Provider] - Within 1 Week (After discharge from nursing facility) Luis M Norris MD [Med Staff - Courtesy Staff] - See Referral Note (Appointment as soon as possible for hypocortisolism related to adrenal axis issues from checkpoint inhibitor therapy) Disposition Disposition (needs filled in before D/C Order can be placed): [facility] Charges/Coding Visit Charges Inpatient E&M: 75756 Disch Hosp >30min
[2024-05-17] MEDS: Insulin Lispro 100 UNIT/ML INSULN.PEN SC (11:54)
[2024-05-17 12:18] LABS: Bedside Glucose 184 mg/dL (74-106)
[2024-05-17 13:27] VITALS: BP 119/59; PULSE 75; RESP 18; TEMP 36.3; O2SAT 97
--- NOTE | 2024-05-17 13:57 | NURSING ---
Nurse to nurse report and call back # given to Cassandra at [facility].
[2024-06-11 14:13] LABS: Bedside Glucose 85 mg/dL (74-106)
== END 2024-05-17 14:50 | disposition skilled nursing facility (03) | DRG 641 ==
LOC: ED 14:50 → MS3 16:40
PROVIDERS: Nurse Practitioner; Admitting Provider Student in an Organized Health Care Education/Training Program; Emergency Provider Emergency Medicine; PCP Family Medicine; Referring Provider Emergency Medicine; Visit Provider Internal Medicine
DX: E87.1 Hypo-osmolality and hyponatremia (principal); C64.9 Malignant neoplasm of unspecified kidney, except renal pelvis; N18.4 Chronic kidney disease, stage 4 (severe); C78.6 Secondary malignant neoplasm of retroperitoneum and peritoneum; E11.22 Type 2 diabetes mellitus with diabetic chronic kidney disease; I12.9 Hypertensive chronic kidney disease with stage 1 through stage 4 chronic kidney disease, or unspecified chronic kidney disease; K76.9 Liver disease, unspecified; Z68.37 Body mass index [BMI] 37.0-37.9, adult; E78.00 Pure hypercholesterolemia, unspecified; N40.1 Benign prostatic hyperplasia with lower urinary tract symptoms; T45.1X5A Adverse effect of antineoplastic and immunosuppressive drugs, initial encounter; R53.1 Weakness; E66.9 Obesity, unspecified; Z79.82 Long term (current) use of aspirin; Z79.84 Long term (current) use of oral hypoglycemic drugs; Z79.899 Other long term (current) drug therapy; Z95.1 Presence of aortocoronary bypass graft; Z66 Do not resuscitate
CPT/HCPCS: 36415; 36591; 71045; 80048; 80053; 81001; 82533; 82962; 83690; 83735; 83930; 83935; 84100; 84295; 84300; 84439; 84443; 84484; 84550; 85025; 85027; 87426; 87631; 93005; 97116; 97162; 97166; 97530; 97535; 97802; 99283; J7030; J7040; A4216; J2405

== ENCOUNTER 2025-06-21 13:26 | Emergency (ER) | payer MEDICARE, OTHER, SELFPAY ==
[2025-06-21 13:27] VITALS: BP 154/66; PULSE 63; RESP 18; TEMP 36.4; O2SAT 95; BMI 41.3
--- NOTE | 2025-06-21 13:46 | RAD_ITS ---
PROCEDURE: PELVIS 1 OR 2 VIEWS 06/21/2025 REASON FOR EXAM: FALL, PAIN TECHNIQUE: Procedure Code: RADPEL Modality: DX Procedure: PELVIS 1 OR 2 VIEWS FINDINGS: No evidence of acute fracture or dislocation. Moderate degenerative changes of the bilateral hips. Degenerative changes of the partially visualized spine. RAD/Pelvis 1 or 2 Views IMPRESSION: No acute osseous abnormality. Osteoarthrosis. Reading Location: [id number]
--- NOTE | 2025-06-21 14:10 | RAD_ITS ---
PROCEDURE: FEMUR MIN 2 VIEWS 06/21/2025 REASON FOR EXAM: FALL, PAIN TECHNIQUE: Procedure Code: RADFEM Modality: DX Procedure: FEMUR MIN 2 VIEWS Laterality: Right femur COMPARISON: None FINDINGS: Bones: No fracture. Joints: Normal alignment. Mild degenerative changes. Soft tissues: Vascular calcification Other: RAD/Femur Min 2 Views IMPRESSION: NO ACUTE FRACTURE OR DISLOCATION. Reading Location: [place] [id number]
--- NOTE | 2025-06-21 14:15 | CT_ITS ---
PROCEDURE: BRAIN/HEAD WITHOUT CONTRAST 06/21/2025 REASON FOR EXAM: FALL TECHNIQUE: Procedure Code: CTBR Modality: CT Procedure: BRAIN/HEAD WITHOUT CONTRAST Coronal and Sagittal reconstruction series were provided. One or more dose reduction techniques were used (e.g., Automated exposure control, adjustment of the mA and/or kV according to patient size, use of iterative reconstruction technique. RADIATION DOSE SUMMARY: CTDlvol: 44.99 mGy DLP: 846.73 mGycm COMPARISON: None FINDINGS: Brain: Low density in the periventricular white matter suggests mild chronic small vessel ischemic changes. CSF Spaces: Mild generalized cerebral atrophy atrophy of the cerebellum. Sinuses/Mastoids: Clear at visualized levels Bones: No fracture. CT/Brain/Head without Contrast IMPRESSION: CHRONIC CHANGES. NO ACUTE FINDINGS. Reading Location: [place] [id number]
--- NOTE | 2025-06-21 14:15 | CT_ITS ---
PROCEDURE: SPINE CERVICAL WITHOUT CONTRAS 06/21/2025 REASON FOR EXAM: FALL Neck injury due to a fall. TECHNIQUE: Procedure Code: CTS Modality: CT Procedure: SPINE CERVICAL WITHOUT CONTRAS Coronal and Sagittal reconstruction series were provided. One or more dose reduction techniques were used (e.g., Automated exposure control, adjustment of the mA and/or kV according to patient size, use of iterative reconstruction technique. RADIATION DOSE SUMMARY: CTDlvol: 28.95 mGy DLP: 583.71 mGycm COMPARISON: None FINDINGS: Alignment: Straightening of the normal cervical lordosis. Vertebrae: No vertebral compression. Soft Tissues: No prevertebral soft tissue swelling. Other: C1-2: Degenerative changes of the atlantoaxial joint. C2-3: Mild degree of disc space narrowing. Facet joint osteoarthritis and hypertrophy worse on the right side. Uncovertebral arthrosis. Moderate right neural foraminal stenosis. C3-4: Mild degree of disc space narrowing. Uncovertebral arthrosis and facet joint osteoarthritis. Bilateral neural foraminal stenosis. C4-5: Moderate degree of disc space narrowing. Facet joint osteoarthritis and hypertrophy. Uncovertebral arthrosis. Bilateral neural foraminal stenosis. C5-6: Marked degree of disc space narrowing. Spondylosis. Bilateral neural foraminal stenosis. C6-7: Marked degree of disc space narrowing. Spondylosis and facet joint osteoarthritis. Bilateral neural foraminal stenosis. C7-T1: Degenerative changes. CT/Spine Cervical without Contras IMPRESSION: Multilevel disc space narrowing and neural foraminal stenosis as described. No acute fracture is seen. Reading Location: [place] [id number]
--- NOTE | 2025-06-21 14:36 | ED.VIS.FALL ---
HPI HPI - Fall History of Present Illness Chief Complaint: Fall Narrative Narrative: Patient is a 85-year-old male presenting to the emergency department for a mechanical fall. Patient has a past medical history as below including metastatic renal cell carcinoma, lightheadedness, unstable gait, hyperlipidemia and type 2 diabetes. Patient states that he was walking with grippy shoes on in the house on lin[place]um alie. States that his foot got stuck causing him to fall backwards striking the back of his head. He does not think he lost consciousness. He is only on aspirin, no oral anticoagulation. Patient has not ambulated since the fall. He is complaining of right hip pain. [facility] Medical History Chronic kidney disease CKD (chronic kidney disease) stage 4, GFR 15-29 ml/min Depression GERD (gastroesophageal reflux disease) Kidney stones Kidney disease Obesity due to excess calories Loss of hearing Wears glasses Wears dentures Cancer Diabetes Arthritis Prostate disease High cholesterol Back pain Dietary restriction History of diverticulitis Heartburn Non-smoker Shortness of breath on exertion Leg cramps History of edema History of pain when walking History of stress test Cardiology follow-up encounter Hypertension BRBPR (bright red blood per rectum) GI bleed Home Medications ?Medication ?Instructions ?Recorded ?Last Taken ?Type allopurinol 100 mg tablet 100 mg PO DAILYCM Gout 03/18/15 Unknown History ezetimibe 10 mg tablet 10 mg PO DAILY Cholesterol 03/18/15 Unknown History [id number] acid 0.4 1 ea PO DAILY Supplement 03/18/15 Unknown History mg-lycopene 300 mcg-lutein 250 mcg tablet (Centrum Silver) pyridoxine (vitamin B6) 100 mg 100 mg PO DAILY Supplement 03/18/15 Unknown History tablet tamsulosin 0.4 mg capsule 0.8 mg PO QHS Urinary Retention 03/18/15 Unknown History cholecalciferol (vitamin D3) 25 1,000 unit PO DAILY Supplement 08/25/20 Unknown History mcg (1,000 unit) tablet loratadine 10 mg tablet (Claritin) 10 mg PO DAILY Allergies 04/10/21 Unknown History aspirin 81 mg chewable tablet 1 tab PO DAILY prevention 04/11/24 Unknown History empagliflozin 25 mg tablet 25 mg PO DAILY diabetes 04/11/24 Unknown History (Jardiance) nut.tx.imp.renal fxn,lac-reduc ml PO TID supplement 05/14/24 Unknown History 0.08 gram-1.8 kcal/mL oral liquid (Nepro Carb Steady) sodium bicarbonate 650 mg tablet mg PO BID 05/14/24 Unknown History hydrocortisone 10 mg tablet 10 mg PO BIDCM #0 tabs 05/17/24 Unknown Rx insulin lispro 100 unit/mL See Protocol subcut TIDAC #0 mL 05/17/24 Unknown Rx subcutaneous pen (Humalog KwikPen (U-100) Insulin) bimatoprost 0.01 % eye drops drp ophthalmic (eye) 06/21/25 Unknown History (Lumigan) dorzolamide 22.3 mg-timolol 6.8 1 drp RIGHT EYE BID 06/21/25 Unknown History mg/mL eye drops glimepiride 4 mg tablet 4 mg PO 06/21/25 Unknown History Allergy/AdvReac Type Severity Reaction Status Date / Time aspirin Allergy Rash Verified 05/14/24 11:19 atorvastatin calcium (From Allergy Other Verified 05/14/24 11:19 Lipitor) finasteride Allergy Rash Verified 05/14/24 11:19 ibuprofen (From Motrin) Allergy Swelling Verified 05/14/24 11:19 simvastatin (From Zocor) Allergy Other Verified 05/14/24 11:19 sulfamethoxazole (From Allergy Unknown Verified 05/14/24 11:19 Bactrim) trimethoprim (From Bactrim) Allergy Unknown Verified 05/14/24 11:19 Surgical History Hx of CABG Status post left knee replacement Hx of colonoscopy Hx of tonsillectomy History of nephrectomy, right History of surgical removal of skin lesion Hx of bursectomy Hx of total shoulder replacement Social History Smoking Status: Never smoker ROS ROS ED ROS Narrative See HPI EXAM Physical Exam Narrative Exam Narrative: Vital signs: Reviewed General: Alert and orientedx3. No acute distress HEENT: Head is normocephalic and atraumatic. No cephalohematoma, lacerations and abrasions. Midface is stable and nontender to palpation. Pupils 2mm equal round and reactive. Nares are patent. No septal hematoma. Oropharynx and throat exams normal. No oropharyngeal trauma. Neck: Supple without lymphadenopathy nontender. No midline cervical spinal tenderness to palpation. No step-offs or deformities. Cardiovascular: Regular rate and rhythm, no murmurs. No rubs or gallops. Normal S1 and S2 Respiratory: Clear to auscultation bilaterally. No wheezes, rales, rhonchi Chest: Chest wall is atraumatic and nontender to palpation. No crepitus, ecchymosis or erythema. Abdominal: Soft and nontender. Normal bowel sounds. No guarding or rebound. Nonsurgical abdomen Extremities: No midline thoracic or lumbar spinal tenderness to palpation. No step-offs or deformities. The right posterior lateral hip is mildly tender to palpation. Range of motion with flexion extension at the hip is normal with mild pain. Extremities are otherwise atraumatic and nontender to palpation with normal active range of motion. DP, PT and radial pulses are all 2+ and symmetric throughout. Skin: No rash or redness. Neurological: Cranial nerves II through XII are grossly intact. Normal strength and sensation. Normal cerebellar function The rest of the physical exam is unremarkable Const Vital Signs: 06/21/25 13:27 06/21/25 13:37 06/21/25 15:14 Temperature 97.6 F L 97.6 F L Temperature Source Oral Pulse Rate 63 60 Respiratory Rate 18 18 Blood Pressure 154/66 H 149/65 H Blood Pressure Mean 95 93 Pulse Ox 95 96 Oxygen Delivery Method Room Air Room Air MDM MDM MDM Narrative Medical decision making narrative: Patient is a 85-year-old male presenting to the emergency department for a mechanical fall. Patient was seen and examined. Vitals are stable. Patient resting bed comfortably no acute distress. Patient describes the fall as mechanical, there is no indication for labs or further workup of the fall. CT of the brain and cervical spine were ordered given patient's age and head trauma. X-ray of the right hip and femur were obtained with the patient's complaints of right posterior lateral hip pain. CT brain with no acute findings, chronic changes. CT cervical spine with no acute fracture. X-rays were reviewed by myself and show no acute fracture or dislocation. Radiology read in agreement. Patient ambulates without difficulty. Updated on the negative imaging. Patient discharged from the Emergency Department. I do not feel that the patient's evaluation reveals any acute reason for admission at this time. I instructed them to either follow-up with their primary care physician or promptly return to the Emergency Department for reevaluation should symptoms worsen or new symptoms develop. I explained what symptoms would indicate the need to return to the emergency department. Shared decision making was used. The patient voiced understanding of the treatment plan and is agreeable with it. Clinical impression Mechanical fall Head trauma Right hip contusion History & Record Review Discussion w/independent historian: Patient and Significant other Radiography Diagnostic Testing: Clinical Impression(s) from Imaging Studies Pelvis X-Ray 06/21/25 13:46 IMPRESSION: No acute osseous abnormality. Osteoarthrosis. Reading Location: [id number] Femur X-Ray 06/21/25 14:10 IMPRESSION: NO ACUTE FRACTURE OR DISLOCATION. Reading Location: [facility] 06/21/25 14:15 IMPRESSION: CHRONIC CHANGES. NO ACUTE FINDINGS. Reading Location: [facility] 06/21/25 14:15 IMPRESSION: Multilevel disc space narrowing and neural foraminal stenosis as described. No acute fracture is seen. Reading Location: [facility] Discharge Plan Triage Chief Complaint: Fall ED Provider: Viviana Damico Dx/Rx/DC Orders Clinical Impression: Fall, Head injury, Contusion of hip, right Instructions: ED Mechanical Fall, ED Head Injury (Adult) Prescriptions: No Action allopurinol 100 MG tablet 100 mg PO DAILYCM tamsulosin 0.4 MG capsule 0.8 mg PO QHS pyridoxine (vitamin B6) 100 MG tablet 100 mg PO DAILY ezetimibe 10 MG tablet 10 mg PO DAILY Centrum Silver 1 EACH tablet 1 ea PO DAILY cholecalciferol (vitamin D3) 1,000 UNIT tablet 1,000 unit PO DAILY loratadine [Claritin] 10 mg Tablet 10 mg PO DAILY Jardiance 25 mg tablet 25 mg PO DAILY aspirin 81 mg tablet,chewable 1 tab PO DAILY sodium bicarbonate 650 mg tablet PO BID Nepro Carb Steady 0.08 gram-1.8 kcal/mL liquid PO TID hydrocortisone 10 mg Tablet 10 mg PO BIDCM Qty: 0 0RF insulin lispro [Humalog KwikPen Insulin] 100 unit/mL Insulin Pen See Protocol subcut TIDAC Qty: 0 0RF Protocol: 3. Sliding Scale Insulin Med Dosing Condition: 150-189 mg/dl = 1 unit Condition: 190-229 mg/dl = 2 units Condition: 230-269 mg/dl = 3 units Condition: 270-309 mg/dl = 4 units Condition: 310-349 mg/dl = 5 units Condition: 350-399 mg/dl = 6 units Condition: 400-449 mg/dl = 7 units Condition: Greater than 449 call physician Protocol Text: Suggested for: - Patients on Total Daily Insulin Dose of 37-55 units - Obese, infected, or steroid patients MEDIUM DOSING ALGORITHIM glimepiride 4 mg tablet 4 mg PO dorzolamide-timolol 22.3-6.8 mg/mL drops 1 drp RIGHT EYE BID Lumigan 0.01 % drops ophthalmic (eye) Primary Care Provider: Isai Pedersen Referrals: Isai Pedersen MD [Primary Care Provider, [facility]] - As soon as possible Activity Restrictions/Additional Instructions: Your evaluation in the Emergency Department did not reveal any acute reason for admission. However, I want to emphasize that you may be early in the course of a disease process or illness even if it is not present. For this reason you should follow-up within 24 hours for reevaluation with either your primary care physician or if necessary back here in the Emergency Department. You should return to the Emergency Department immediately if your symptoms worsen or new symptoms develop. Print Language: Portuguese Disposition Disposition: Home, Self Care Discharge Date/Time: 06/21/25 15:15
[2025-06-21 15:14] VITALS: BP 149/65; PULSE 60; RESP 18; TEMP 36.4; O2SAT 96
== END 2025-06-21 15:15 | disposition home or self-care (01) ==
PROVIDERS: Emergency Provider Student in an Organized Health Care Education/Training Program; PCP Family Medicine; Visit Provider Student in an Organized Health Care Education/Training Program
DX: S09.90XA Unspecified injury of head, initial encounter (principal); N18.4 Chronic kidney disease, stage 4 (severe); E11.22 Type 2 diabetes mellitus with diabetic chronic kidney disease; Z79.4 Long term (current) use of insulin; S70.01XA Contusion of right hip, initial encounter; W01.0XXA Fall on same level from slipping, tripping and stumbling without subsequent striking against object, initial encounter; E78.5 Hyperlipidemia, unspecified; R26.89 Other abnormalities of gait and mobility; I12.9 Hypertensive chronic kidney disease with stage 1 through stage 4 chronic kidney disease, or unspecified chronic kidney disease; K21.9 Gastro-esophageal reflux disease without esophagitis; F32.A Depression, unspecified; N42.9 Disorder of prostate, unspecified; Z90.5 Acquired absence of kidney; Z95.1 Presence of aortocoronary bypass graft; Z79.82 Long term (current) use of aspirin; Z87.19 Personal history of other diseases of the digestive system; Z79.84 Long term (current) use of oral hypoglycemic drugs; Z79.899 Other long term (current) drug therapy; Z85.528 Personal history of other malignant neoplasm of kidney
CPT/HCPCS: 70450; 72125; 72170; 73552; 99283